=== PATIENT | male | born 1965 | race Caucasian/White ===

== ENCOUNTER 2022-04-29 11:28 | Emergency (ER) | payer MEDICARE, SELFPAY ==
[2022-04-29 12:25] VITALS: BP 159/80; PULSE 84; RESP 20; TEMP 37; O2SAT 96; BMI 26.7
[2022-04-29 12:44] LABS: UTC Influenza A Antigen Negative (Negative); UTC Influenza B Antigen Negative (Negative)
--- NOTE | 2022-04-29 12:50 | EXP.UTC ---
Discharge Plan Disposition Patient Disposition: Home, Self-Care Condition: Good Prescriptions Prescriptions: New benzonatate 100 mg capsule 100 mg PO TID PRN (Reason: cough) Qty: 30 0RF Referrals Follow up/Referrals: Provider,Referral, MD [Primary Care Provider] - See instructions Activity Restrictions/Add. Instructions Additional Instructions/Restrictions: *Monitor Temp, Over the counter Motrin or Tylenol as directed/as needed Tylenol every 4 hours and Motrin every 6 hours (as long as your family doctor has told you that you can take it) for fever or pain. and straight to ER if unable to lower temp less than 101.0 after medication given *Warm salt water gargles may help to soothe the throat *Throat Lozenges? *Warm fluids like tea with honey may help to soothe the throat? *Sleep elevated *Humidifier/Vaporizer Follow up IMMEDIATELY for new or worsening symptoms or no Noticeable improvement over the next 48-72 hours. 911 for difficulty breathing or swallowing You were tested for today for COVID19 your test result should be back in the next 24-48 hours, you may check your results on the [facility] Portal Clinical Impressions Clinical Impression: Viral syndrome Stand Alone Forms Stand Alone Forms: Work/School Release Instructions Patient Instructions: Preventing the Spread of Coronavirus Discharge Instructions, DI for Viral Syndrome Discharge ED Provider: Neeru Dudley [facility] [place] HPI General Stated complaint: Bodyaches chills Mode of Arrival: Ambulatory Source of Information: Patient Limitations: No Limitations Time Seen by Provider: 04/29/22 12:50 Description of Symptoms (Recalled from Triage Doc. by RN): PATIENT C/O BODY ACHES, CHILLS, AND COUGH THAT STARTED THIS MORNING HEENT Symptoms (Recalled from RN notes): No Resp Symptoms (Recalled from RN notes): Yes Skin Symptoms (Recalled from RN notes): No MS Symptoms (Recalled from RN notes): No Functional Status (Recalled from RN notes): WNL History of Present Illness Provider Complaint: Patient states that he woke up this morning having body aches, chills and nasal congestion and cough that started this morning States that he is planning on traveling this weekend and was worried with flu and covid and wanted to get tested Related Data Previous Rx's Medication Instructions Recorded benzonatate 100 mg capsule 100 mg PO TID PRN cough #30 caps 04/29/22 Allergies Allergy/AdvReac Type Severity Reaction Status Date / Time No Known Allergies Allergy Verified 04/29/22 12:40 Worker's Comp Is this a Worker's Comp case?: No [facility] Disclaimer: The information contained in this section may have been updated after the patient was seen, as this information can be updated by other users. Social History Smoking Status: Current some day smoker alcohol intake: never current occupational status: employed Travel in the last 8 weeks: None ROS Obtained: Yes All systems reviewed & no additional complaints except as documented and Yes Systems reviewed as appropriate & no additional complaints except as documented Constitutional Constitutional: Reports system reviewed and no additional complaints, except as documented, Reports as per HPI, Reports body ache and Reports chills ENT Ears, Nose, Mouth, and Throat: Reports system reviewed and no additional complaints, except as documented, Reports as per HPI and Reports nasal congestion Cardiovascular Cardiovascular: Reports system reviewed and no additional complaints, except as documented and Reports as per HPI Respiratory Respiratory: Reports system reviewed and no additional complaints, except as documented, Reports as per HPI and Reports cough Gastrointestinal Gastrointestingal: Reports system reviewed and no additional complaints, except as documented and as per HPI Physical Exam General General appearance: alert and in no apparent distress Expanded ENT Exam Nose exam: Ab
[2022-04-29 12:54] VITALS: BP 159/80; PULSE 84; RESP 20; TEMP 37; O2SAT 96
== END 2022-04-29 13:08 | disposition home or self-care (01) ==
PROVIDERS: Emergency Provider Nurse Practitioner
DX: B34.9 Viral infection, unspecified (principal); R52 Pain, unspecified; R50.9 Fever, unspecified; R05.9 Cough, unspecified
CPT/HCPCS: 87804; 87880; 99212; 99213; C9803; G0463; U0003; U0005

== ENCOUNTER → 2022-11-24 09:40 | Outpatient (CLI) | payer MEDICARE, SELFPAY ==
--- NOTE | 2022-11-24 09:49 | XR_ITS ---
FINAL REPORT TECHNIQUE: Chest PA & Lateral CLINICAL HISTORY: PERSISTENT COUGH, 1 month, productive cough with green/yellow phlegm, wheezing when lying down, 40 yr smoker FINDINGS: 2 views of the chest were performed. The heart size is normal. The mediastinum is within normal limits. There is no acute cardiopulmonary process. There are no pleural effusions. There is no pneumothorax. There is moderate anterior osteophyte formation in the mid and lower thoracic spine. There is posterior fusion hardware in the lower thoracic spine. IMPRESSION: No acute cardiopulmonary process. Reviewed, Interpreted and Dictated by Cachorro Gil MD Transcribed by Philip Roberson Authenticated and . [facility]
== END ==
DX: R05.3 Chronic cough (principal)
CPT/HCPCS: 71046

== ENCOUNTER 2023-01-26 08:40 | Emergency (ER) | payer MEDICARE, SELFPAY ==
[2023-01-26 09:20] VITALS: BP 131/81; PULSE 79; RESP 18; TEMP 37.2; O2SAT 93; BMI 26.6
[2023-01-26 09:48] LABS: UTC Influenza A Antigen Negative (Negative); UTC Influenza B Antigen Negative (Negative)
--- NOTE | 2023-01-26 09:49 | EXP.UTC ---
Discharge Plan Disposition Patient Disposition: Home, Self-Care Condition: Good Prescriptions Prescriptions: No Action baclofen 20 mg tablet 20 mg PO TIDP PRN (Reason: Pain) Patient Comments: TAKE 1 TABLET BY MOUTH 3 TIMES A DAY NEEDED FOR MUSCLE SPASM omeprazole 20 mg capsule,delayed release(DR/EC) 20 mg PO DAILY Patient Comments: TAKE 1 CAPSULE BY MOUTH EVERY OTHER DAY oxycodone-acetaminophen 7.5-325 mg tablet 1 tab PO Q6HP PRN (Reason: Pain) Patient Comments: TAKE 1 TABLET BY MOUTH EVERY 6 HOURS NEEDED FOR PAIN diclofenac sodium [Voltaren] 75 mg Tablet,Delayed Release (Dr/Ec) 75 mg PO BID Referrals Follow up/Referrals: Aleksandr Kruger MD [Primary Care Provider] - See instructions Activity Restrictions/Add. Instructions Additional Instructions/Restrictions: *Monitor Temp, Over the counter Motrin or Tylenol as directed/as needed Tylenol every 4 hours and Motrin every 6 hours (as long as your family doctor has told you that you can take it) for fever or pain. and straight to ER if unable to lower temp less than 101.0 after medication given *Warm salt water gargles may help to soothe the throat *Throat Lozenges? *Warm fluids like tea with honey may help to soothe the throat? *Sleep elevated *Humidifier/Vaporizer Follow up IMMEDIATELY for new or worsening symptoms or no Noticeable improvement over the next 48-72 hours. 911 for difficulty breathing or swallowing You were tested for today for COVID19 your test result should be back in the next 24 hours you may check your results on the [facility] My Health Portal if your COVID test is positive you must Quarantine for 5 days Clinical Impressions Clinical Impression: Viral syndrome Stand Alone Forms Stand Alone Forms: Work/School Release Instructions Patient Instructions: DI for COVID-19 (Suspected or Confirmed ), DI for Viral Syndrome Discharge ED Provider: Neeru Dudley [facility] [place] HPI General Stated complaint: EXPOSED TO COVID Mode of Arrival: Ambulatory Source of Information: Patient Limitations: No Limitations Time Seen by Provider: 01/26/23 09:49 Description of Symptoms (Recalled from Triage Doc. by RN): PATIENT C/O HEADACHE, CHILLS, AND COLD SWEATS SINCE YESTERDAY. RECENTLY EXPOSED TO COVID HEENT Symptoms (Recalled from RN notes): Yes Resp Symptoms (Recalled from RN notes): No Skin Symptoms (Recalled from RN notes): No MS Symptoms (Recalled from RN notes): No Functional Status (Recalled from RN notes): WNL History of Present Illness Provider Complaint: Patient states that he played poker with someone on Wednesday that tested positive for COVID States that last night he started with headache, chills, bodyaches and feeling bad states that he is not sure if he had a fever or not but woke up through out the night with chills, then he would sweat like a fever broke States that he feels ok this morning but wanted to come in and get tested for COVID and flu to see if he may have it State that he is an everyday smoker Related Data Home Medications Medication Instructions Recorded Confirmed baclofen 20 mg tablet 20 mg PO TIDP PRN Pain 01/26/23 01/26/23 diclofenac sodium 75 mg 75 mg PO BID 01/26/23 01/26/23 tablet,delayed release omeprazole 20 mg capsule,delayed 20 mg PO DAILY GERD 01/26/23 01/26/23 release oxycodone-acetaminophen 7.5 mg-325 1 tab PO Q6HP PRN Pain 01/26/23 01/26/23 mg tablet Allergies Allergy/AdvReac Type Severity Reaction Status Date / Time No Known Allergies Allergy Verified 04/29/22 12:40 Worker's Comp Is this a Worker's Comp case?: No [facility] Disclaimer: The information contained in this section may have been updated after the patient was seen, as this information can be updated by other users. Medical History (Updated 01/26/23 @ 09:59 by Neeru Dudley APRN) History of gastroesophageal reflux (GERD) Surgical History (Updated 01/26/23
[2023-01-26 10:00] VITALS: BP 0/0; PULSE 113; RESP 21; TEMP 37.1; O2SAT 100
== END 2023-01-26 10:03 | disposition home or self-care (01) ==
PROVIDERS: Emergency Provider Nurse Practitioner; PCP Family Medicine
DX: U07.1 COVID-19 (principal); R51.9 Headache, unspecified; R68.83 Chills (without fever); F17.210 Nicotine dependence, cigarettes, uncomplicated; K21.9 Gastro-esophageal reflux disease without esophagitis
CPT/HCPCS: 87635; 87804; 99212; 99213; G0463

== ENCOUNTER 2024-07-24 20:39 | Emergency (ER) | payer MEDICARE, SELFPAY ==
--- OUTSIDE RECORDS SUMMARY | 2024-07-24 22:13 | XMS_ITS | Encounter Summary ---
Author Name [facility] [facility] [place] Address [address] [place] [address] Care Team Providers Care Child Development Consultant Name Role Phone KWANMARIBELL MORRISSEY Primary Care Provider Unavailabl e Insurance Providers: All historical and current Section Date Range: From patient's date of to the date document was created. This section includes the names of all active insurance providers for the patient. Insurance Provider Type of Coverage Plan Name Start of Policy Coverage End of Policy Coverage Group Number Member ID Insurance Provider's Telephone Number Policy Conn's Name Patient's Relationship to Policy Conn BS [place] [employer] PREFERRED PROVIDER ORGANIZAT ION (PPO) RONEY Escoto [employer] AC Jun 29, 2011 [id number] WINTER DEVINE PATIENT [employer] ([id number]) PRESCRIPT ION TMAA Jun 29, 2011 TMAA [id number] [phone] WINTER DEVINE PATIENT Selected Encounter This section includes the information on record at [place] for the Encounter. Date/Time Encounter Type Encounter Description Reason Pro vider Source May 11, 2024 10:09 AM Outpatient Encounter ADMIN PAT ACTIVTIES (MASNONCT) [facility] Encounter Template Text not used by [place] Plan of Treatment: Future Appointments (+ 6 months) and Future Tests (+/- 45 days) The Plan of Treatment section includes future care activities for the [facility]. This section includes future appointments and future orders which are active, pending or scheduled. Future Appointments This section includes appointments that were scheduled to occur 6 months from the date of the Encounter, up to a maximum of 20 appointments. The data comes from all [place] treatment facilities. Appointment Date/Time Appointment Type Appointme nt Facility Name Jun 01, 2024 08:00 AM AMBULATORY - NONE [facility] Jun 09, 2024 08:15 AM AMBULATORY - NONE [facility] Lab Results: +/- 30 days of the encounter This section includes the Chemistry and Hematology Lab Results on record with [place] for the patient. Radiology Reports and Pathology Reports are provided separately, in subsequent sections. Lab Results This section contains the Chemistry/Hematology Results that were resulted 30 days before or 30 daysafter the date of the Encounter. Date/Time Source Result Type Result - Unit Interpretation Reference Range Specimen Type Comment Jun 01, 2024 08:55 AM [facility] WN LIPID PROFILE PLASMA Specimen Type: PLASMA Comment: Estimated Glomerular Filtration Rate (eGFR) calculated using the 2020 Chronic Kidney Disease-Epidemio logy (CKD-EPI) Collaboration creatinine equation; units of measure are mL/min/1.73 m2. Results are only valid for adults (>=18 years) whose serum creatinine is in a steady state. eGFR calculations are not valid for patients with acute kidney injury and for patients on dialysis. Creatinine-based estimates of kidney function may also be inaccurate in patients with reduced creatinine generation due to decreased muscle mass (e.g., malnutrition, severe hypoalbuminemia, sarcopenia, chronic neuromuscular disease, amputations, severe heart failure or liver disease) and in patients with increased creatinine generation due to increased muscle mass (e.g., muscle builders, anabolic steroids) or increased dietary intake. As drug clearance is proportional to total GFR and not GFR indexed to body surface area (BSA), in individuals with a BSA substantially different than 1.73 m2, drug dosing should be based on the reported eGFR value de-indexed from BSA by multiplying by the individual's BSA and dividing by 1.73. CKD is diagnosed based on abnormalities of kidney structure or function, present for >3 months, with implications for health and disease. CKD is classified and staged based on cause, eGFR and albuminuria (quantified as urine albumin to creatinine ratio). An eGFR >60 mL/min/1.73 m2 in the absence of increased urine albumin excretion or structural abnormalities does not represent CKD. ====== eGFR CKD Interpretation (mL/min/1.73 m2) stage >=90 G1 Normal 60-89 G2 Mild decrease 45-59 G3A Mild to moderate decrease 30-44 G3B Moderate to severe decrease 15-29 G4 Severe decrease <15 G5 Kidney failure Vitamin B12 test may not yield results when protein level of sample is too elevated. Ordering Provider: MARIBELL KWAN Report Released Date/Time: Jun 01, 2024 08:41 AM Reporting Lab: [address] [address] Performing Lab: [address] [address] CHOLESTEROL 134 mg/dL 0-199 TRIGLYCERIDE 95 mg/dL 0-149 HDL CHOLESTEROL 50 mg/dL 40-69 DIRECT LDL CHOL. 71 mg/dL 0-100 Jun 01, 2024 08:55 AM [facility] CBC/PLT BLOOD Specimen Type: BLOOD No comment entered. Ordering Provider: MARIBELL KWAN Report Released Date/Time: Jun 01, 2024 08:41 AM Reporting Lab: [address] [address] Performing Lab: [address] [address] WBC 7.3 10*3/uL 5.0-10.0 RBC 5.13 10*6/uL 4.6-6.2 HGB 16.0 g/dL 14.0-18.0 HCT 47.4 42.0-52.0 MCV 92.4 fL 80.0-94.0 MCH 31.2 pg H 27.0-31.0 MCHC 33.8 g/dL 32.0-36.0 PLT 267 10*3/uL 150-450 MPV 9.1 fL 9.0-13.1 RDW 13.4 11.0-16.0 NRBC 0.0 0.0-0.0 Jun 01, 2024 08:55 AM [facility] GLYCOHEMOGLOBIN BLOOD Specimen Type: BLOOD Comment: [place] guidelines for A1c interpretation: Glycemic control targets are based on Shared Decision Making between clinicians and patients. Criteria used to establish an A1c target recommendation can be found at https://www.nd.gov/qualityandpatientsafety/ and include the use of result accuracy and precision(CV) of the A1c tests clinicians utilize at their own sites of practice. Values obtained from A1C measurements can vary. For typical A1C assays, a reported value of 7.0 could actually be between 6.72 and 7.28 if measured by a reference method. A reported value of 9.0 could actually be between 8.73 and 9.27. Ref: https://ngsp.org/CAPdata.asp. The in-house 51fan[employer] D-100 analyzer has a historical CV <= 2%. Contact the laboratory for further performance characteristics of this assay. Ordering Provider: MARIBELL KWAN Report Released Date/Time: Jun 01, 2024 08:41 AM Reporting Lab: [address] [address] Performing Lab: [address] [address] GLYCOHEMOGLOBIN 5.3 4.4-5.6 Jun 01, 2024 08:55 AM [facility] PANEL 5 PLASMA Specimen Type: PLASM A Comment: Estimated Glomerular Filtration Rate (eGFR) calculated using the 2020 Chronic Kidney Disease-Epidemiology (CKD-EPI) Collaboration creatinine equation; units of measure are mL/min/1.73 m2. Results are only valid for adults (>=18 years) whose serum creatinine is in a steady state. eGFR calculations are not valid for patients with acute kidney injury and for patients on dialysis. Creatinine-based estimates of kidney function may also be inaccurate in patients with reduced creatinine generation due to decreased muscle mass (e.g., malnutrition, severe hypoalbuminemia, sarcopenia, chronic neuromuscular disease, amputations, severe heart failure or liver disease) and in patients with increased creatinine generation due to increased muscle mass (e.g., muscle builders, anabolic steroids) or increased dietary intake. As drug clearance is proportional to total GFR and not GFR indexed to body surface area (BSA), in individuals with a BSA substantially different than 1.73 m2, drug dosing should be based on the reported eGFR value de-indexed from BSA by multiplying by the individual's BSA and dividing by 1.73. CKD is diagnosed based on abnormalities of kidney structure or function, present for >3 months, with implications for health and disease. CKD is classified and staged based on cause, eGFR and albuminuria (quantified as urine albumin to creatinine ratio). An eGFR >60 mL/min/1.73 m2 in the absence of increased urine albumin excretion or structural abnormalities does not represent CKD. eGFR CKD Interpretation (mL/min/1.73 m2) stage >=90 G1 Normal 60-89 G2 Mild decrease 45-59 G3A Mild to moderate decrease 30-44 G3B Moderate to severe decrease 15-29 G4 Severe decrease <15 G5 Kidney failure Vitamin B12 test may not yield results when protein level of sample is too elevated. Ordering Provider: MARIBELL KWAN Report Released Date/Time: Jun 01, 2024 08:41 AM Reporting Lab: [address] [address] Performing Lab: [address] [address] CREATININE 0.96 mg/dL 0.72-1.25 UREA NITROGEN 17 mg/dL 9-25 GLUCOSE 93 mg/dL 74-100 SODIUM 140 mmol/L 136-145 POTASSIUM 4.8 mmol/L 3.5-5.1 CHLORIDE 109 mmol/L H 98-107 CO2 24 mmol/L 22-29 CALCIUM 9.4 mg/dL 8.4-10.2 TOTAL PROTEIN 6.7 g/dL 6.4-8.3 ALBUMIN 4.3 g/dL 3.5-5.2 TOTAL BILIRUBIN 0.9 mg/dL 0.2-1.2 AST 27 U/L 5-34 ALT 15 U/L 0-55 ANION GAP 7 meq/L 3-19 ALK PHOS 70 U/L 40-150 eGFR (CKD-EPI) >90 Jun 01, 2024 08:55 AM [facility] Specimen Type: SERUM No comment entered. Ordering Provider: MARIBELL KWAN Report Released Date/Time: Jun 01, 2024 08:41 AM Reporting Lab: [facility] [address] [facility] [address] Performing Lab: [place] [id number] [facility] [address] PSA 0.471 ng/mL 0-3.999 Jun 01, 2024 08:55 AM [facility] TSH PLASMA Specimen Type: PLASM A Comment: Estimated Glomerular Filtration Rate (eGFR) calculated using the 2020 Chronic Kidney Disease-Epidemiology (CKD-EPI) Collaboration creatinine equation; units of measure are mL/min/1.73 m2. Results are only valid for adults (>=18 years) whose serum creatinine is in a steady state. eGFR calculations are not valid for patients with acute kidney injury and for patients on dialysis. Creatinine-based estimates of kidney function may also be inaccurate in patients with reduced creatinine generation due to decreased muscle mass (e.g., malnutrition, severe hypoalbuminemia, sarcopenia, chronic neuromuscular disease, amputations, severe heart failure or liver disease) and in patients with increased creatinine generation due to increased muscle mass (e.g., muscle builders, anabolic steroids) or increased dietary intake. As drug clearance is proportional to total GFR and not GFR indexed to body surface area (BSA), in individuals with a BSA substantially different than 1.73 m2, drug dosing should be based on the reported eGFR value de-indexed from BSA by multiplying by the individual's BSA and dividing by 1.73. CKD is diagnosed based on abnormalities of kidney structure or function, present for >3 months, with implications for health and disease. CKD is classified and staged based on cause, eGFR and albuminuria (quantified as urine albumin to creatinine ratio). An eGFR >60 mL/min/1.73 m2 in the absence of increased urine albumin excretion or structural abnormalities does not represent CKD. eGFR CKD Interpretation (mL/min/1.73 m2) stage >=90 G1 Normal 60-89 G2 Mild decrease 45-59 G3A Mild to moderate decrease 30-44 G3B Moderate to severe decrease 15-29 G4 Severe decrease <15 G5 Kidney failure Ordering Provider: MARIBELL KWAN Report Released Date/Time: Jun 01, 2024 08:41 AM Reporting Lab: [address] [address] Performing Lab: [address] [address] TSH 1.2776 m[IU]/mL 0.3500-4.9400 Jun 01, 2024 08:55 AM [facility] B12 VITAMIN PLASMA Specimen Type: PLASM A Comment: Estimated Glomerular Filtration Rate (eGFR) calculated using the 2020 Chronic Kidney Disease-Epidemiology (CKD-EPI) Collaboration creatinine equation; units of measure are mL/min/1.73 m2. Results are only valid for adults (>=18 years) whose serum creatinine is in a steady state. eGFR calculations are not valid for patients with acute kidney injury and for patients on dialysis. Creatinine-based estimates of kidney function may also be inaccurate in patients with reduced creatinine generation due to decreased muscle mass (e.g., malnutrition, severe hypoalbuminemia, sarcopenia, chronic neuromuscular disease, amputations, severe heart failure or liver disease) and in patients with increased creatinine generation due to increased muscle mass (e.g., muscle builders, anabolic steroids) or increased dietary intake. As drug clearance is proportional to total GFR and not GFR indexed to body surface area (BSA), in individuals with a BSA substantially different than 1.73 m2, drug dosing should be based on the reported eGFR value de-indexed from BSA by multiplying by the individual's BSA and dividing by 1.73. CKD is diagnosed based on abnormalities of kidney structure or function, present for >3 months, with implications for health and disease. CKD is classified and staged based on cause, eGFR and albuminuria (quantified as urine albumin to creatinine ratio). An eGFR >60 mL/min/1.73 m2 in the absence of increased urine albumin excretion or structural abnormalities does not represent CKD. eGFR CKD Interpretation (mL/min/1.73 m2) stage >=90 G1 Normal 60-89 G2 Mild decrease 45-59 G3A Mild to moderate decrease 30-44 G3B Moderate to severe decrease 15-29 G4 Severe decrease <15 G5 Kidney failure Vitamin B12 test may not yield results when protein level of sample is too elevated. Ordering Provider: MARIBELL KWAN Report Released Date/Time: Jun 01, 2024 08:41 AM Reporting Lab: [address] [address] Performing Lab: [address] [address] B12 VITAMIN >2000 pg/mL H 213-816 Jun 01, 2024 08:55 AM [facility] 25-OH VITAMIN D SERUM Specime n Type: SERUM Comment: The National Institutes of Health (NIH) recommendations state: <12 ng/mL - Deficient 20 - 50 ng/mL - Optimal Levels - adequate for most people. >50 ng/mL - Increased risk of hypercalciuria/other health problems - clinical correlation is required. These reference ranges represent clinical decision values rather than population-based reference values. Ordering Provider: MARIBELL KWAN Report Released Date/Time: Jun 01, 2024 08:41 AM Reporting Lab: [address] [address] Performing Lab: [address] [address] 25-OH VITAMIN D 39.4 ng/mL 20.0-50.0 Radiology Reports: +/- 30 days of the encounter Radiology Reports For cases when an order for radiology services may have been completed prior to the date of the Encounter, the report list includes the Radiology Reports that were completed up to 30 days before dateof the Encounter. For cases when an order for radiology services may have been completed after the date of the Encounter, the report list also includes the Radiology Reports that were completed up to30 days after date of the Encounter. The data comes from all [place] treatment facilities. 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 There is minimal scarring left lung base and lingula; there is no change in the appearance here since February 03, 2023. There are no effusions or infiltrates. There is no suspicious adenopathy. The thyroid gland, trachea and esophagus are free of intrinsic masses. There are scattered benign axillary nodes noted incidentally. Great vessels are normal in caliber. There is minimal coronary calcification. Limited abdomen exam notable for postoperative changes to the stomach into the spine. Impression: No suspicious lung nodules, no infiltrates or effusions Primary Diagnostic Code: CRITICAL ABNORMALITY Primary Interpreting Staff: JOSE WALSH, Staff Radiologist Verified by printed circuit boards router for JOSE WALSH / NICOJOSE Ever [facility] Encounter Notes: All associated encounter notes This section contains the clinical notes associated to the Encounter. Date/Time Encounter Note(s) Provider Source May 11, 2024 10:09 AM ADMINISTRATIVE NOT E: LOCAL TITLE: CLERICAL/ADMIN NOTE STANDARD TITLE: ADMINISTRATIVE NOTE DATE OF NOTE: MAY 11, 2024@10:09 ENTRY DATE: MAY 11, 2024@10:09:57 AUTHOR: MANGO B[place]MINGHAM EXP COSIGNER: URGENCY: STATUS: COMPLETED [facility] [place] 1-2 05/11/2024@09:00 Cancelled By Patient [facility] [place] 1-2 06/01/2024@08:00 Future PER PT REQUEST , RESCHED DUE TO PROVIDER LEAVING. DDT. 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
--- OUTSIDE RECORDS SUMMARY | 2024-07-24 22:13 | XMS_ITS | Encounter Summary ---
Author Name [facility] Organization [facility] Address [address] [place] [address] Care Team Providers Care Bookmobile Librarian Name Role Phone KIM KWAN Primary Care Provider Unavailabl e Insurance Providers: [...] [place] BLU[employer] PREFERRED PROVIDER ORGANIZAT ION (PPO) FERNANDOOT A MOTOR MANUF AC Jun 29, 2011 [id number] [phone] WINTER DEVINE PATIENT [employer] ([id number]) PRESCRIPT ION TMAA Jun 29, 2011 TMAA [id number] [phone] WINTER DEVINE PATIENT Selected Encounter This section includes the information on record at DC for the Encounter. Date/Time Encounter Type Encounter Description Reason Provider Source Jun 01, 2024 08:00 AM OFFICE O/P EST MOD 30 MIN PRIMARY CARE/MEDICINE ICD-10-CM M47.896 Other spondylosis, lumbar region KIM KWAN [place] Encounter Template Text not used by DC Assessments - Encounter Diagnoses This section includes the primary and secondary diagnoses documented for the Encounter. Date/Time Primary/Secondary Diagnosis Diagnosis Name Provider Source Jun 01, 2024 05:22 PM PRIMARY Other spondylosis, lumbar region KIM KWAN [facility] Jun 01, 2024 05:22 PM SECONDARY Encounter for immunization MINAL BACA [facility] Plan of Treatment: Future Appointments (+ 6 months) and Future Tests (+/- 45 days) The Plan of Treatment section includes future care activities for the patient from all [place] treatmentfacilities. This section includes future appointments and future orders which are active, pending or scheduled. Future Appointments This section includes appointments that were scheduled to occur 6 months from the date of the Encounter, up to a maximum of 20 appointments. The data comes from all [place] treatment facilities. Appointment Date/Time Appointment Type Appointme nt Facility Name Jun 09, 2024 08:15 AM AMBULATORY - NONE [facility] Lab Results: +/- 30 days of the encounter This section includes the Chemistry and Hematology Lab Results on record with DC for the patient. Radiology Reports and Pathology Reports are provided separately, in subsequent sections. Lab Results This section contains the Chemistry/Hematology Results that were resulted 30 days before or 30 daysafter the date of the Encounter. Date/Time Source Result Type Result - Unit Interpretation Reference Range Specimen Type Comment Jun 01, 2024 08:55 AM [facility] WN LIPID PROFILE PLASMA Specimen Type: PLASMA [...] of sample is too elevated. Ordering Provider: KIM KWAN Report Released Date/Time: Jun 01, 2024 08:41 AM Reporting Lab: [address] [address] Performing Lab: [address] [address] CHOLESTEROL 134 mg/dL 0-199 TRIGLYCERIDE 95 mg/dL 0-149 HDL CHOLESTEROL 50 mg/dL 40-69 DIRECT LDL CHOL. 71 mg/dL 0-100 Jun 01, 2024 08:55 AM [facility] CBC/PLT BLOOD Specimen Type: BLOOD No comment entered. Ordering Provider: KIM KWAN Report Released Date/Time: Jun 01, 2024 08:41 AM Reporting Lab: [address] [address] Performing Lab: [address] [address] WBC 7.3 10*3/uL 5.0-10.0 RBC 5.13 10*6/uL 4.6-6.2 HGB 16.0 g/dL 14.0-18.0 HCT 47.4 42.0-52.0 MCV 92.4 fL 80.0-94.0 MCH 31.2 pg H 27.0-31.0 MCHC 33.8 g/dL 32.0-36.0 PLT 267 10*3/uL 150-450 MPV 9.1 fL 9.0-13.1 RDW 13.4 11.0-16.0 NRBC 0.0 0.0-0.0 Jun 01, 2024 08:55 AM [facility] GLYCOHEMOGLOBIN BLOOD Specimen Type: BLOOD Comment: [place] guidelines for A1c interpretation: Glycemic control targets [...] 8.73 and 9.27. Ref: https://ngsp.org/CAPdata.asp. The in-house [employer] D-100 analyzer has a historical CV <= 2%. Contact the laboratory for further performance characteristics of this assay. Ordering Provider: KIM KWAN Report Released Date/Time: Jun 01, 2024 08:41 AM Reporting Lab: [address] [address] Performing Lab: [address] [address] GLYCOHEMOGLOBIN 5.3 4.4-5.6 Jun 01, 2024 08:55 AM [facility] PANEL 5 PLASMA Specimen Type: PLASM A [...] of sample is too elevated. Ordering Provider: KIM KWAN Report Released Date/Time: Jun 01, 2024 08:41 AM Reporting Lab: [address] [address] Performing Lab: [address] [address] CREATININE 0.96 mg/dL 0.72-1.25 UREA NITROGEN 17 [...] (CKD-EPI) >90 Jun 01, 2024 08:55 AM [facility] PSA S NANDO Specimen Type: SERUM No comment entered. Ordering Provider: KIM KWAN Report Released Date/Time: Jun 01, 2024 08:41 AM Reporting Lab: [address] [address] Performing Lab: [address] [address] PSA 0.471 ng/mL 0-3.999 Jun 01, 2024 08:55 AM [facility] TSH PLASMA Specimen Type: PLASM A Comment: [...] decrease <15 G5 Kidney failure Ordering Provider: KIM KWAN Report Released Date/Time: Jun 01, 2024 08:41 AM Reporting Lab: [address] [address] Performing Lab: [address] [address] TSH 1.2776 m[IU]/mL 0.3500-4.9400 Jun 01, 2024 08:55 AM [facility] B12 VITAMIN PLASMA Specimen Type: PLASM A [...] of sample is too elevated. Ordering Provider: KIM KWAN Report Released Date/Time: Jun 01, 2024 08:41 AM Reporting Lab: [address] [address] Performing Lab: [address] [address] B12 VITAMIN >2000 pg/mL H 213-816 Jun 01, 2024 08:55 AM [facility] 25-OH VITAMIN D SERUM Specime n Type: SERUM Comment: The National Institutes of Health (NIH) recommendations state: <12 ng/mL - Deficient 20 - 50 ng/mL - Optimal Levels - adequate for most people. >50 ng/mL - Increased risk of hypercalciuria/other health problems - clinical correlation is required. These reference ranges represent clinical decision values rather than population-based reference values. Ordering Provider: KIM KWAN Report Released Date/Time: Jun 01, 2024 08:41 AM Reporting Lab: [address] [address] Performing Lab: [address] [address] 25-OH VITAMIN D 39.4 ng/mL 20.0-50.0 Vital Signs: All taken on the encounter date This section contains inpatient and outpatient Vital Signs collected on the date of the Encounter. Date/Time Temperature Pulse Blood Pressure Respiratory Rate SP02 Pain Height Weight Body Mass Index Source Jun 01, 2024 08:14 AM 98.1 79 137/79 18 97 8 68 164 25 [facility] Immunizations: All administered on the encounter date This section contains immunizations associated to the Encounter. 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 expressed understandi ng. 0 ASE's noted. notified. [facility] Social History: Smoking Status (Most current) and Tobacco Use (All prior to encounter date) This section includes the most current, and the historical, smoking and tobacco- related health factors from the [place] facility where the Encounter took place. Current Smoking Status This section includes the most current smoking, or tobacco-related health factor, from the [place] facility where the Encounter took place. Date/Time Current Smoking Status Comment Sandra ity Jun 01, 2024 08:00 AM VA-TOBACCO NEVER U SED CIGARETTES [facility] Tobacco Use History This section includes a history of the smoking, or tobacco-related health factors, that were collected on or before the date of the Encounter. The data comes from the [place] facility where the Encounter took place. 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 [facility] Jun 01, 2024 08:00 AM VA-TOBACCO USE BLAINE RY DAY CIGARS/PIPES [facility] Jun 01, 2024 08:00 AM VA-TOBACCO USE BLAINE RY DAY OTHER TYPE [facility] Jun 01, 2024 08:00 AM VA-TOBACCO USE MED NO [facility] May 25, 2023 11:30 AM VA-TOBACCO DOESNT USE WI 30 MIN WAKEUP [facility] May 25, 2023 11:30 AM VA-TOBACCO USE 30 YEARS OR MORE [facility] May 25, 2023 11:30 AM VA-TOBACCO USE ADVICE [facility] May 25, 2023 11:30 AM 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 [facility] 19, 2024 11:30 AM VA-TOBACCO USE MED NO [facility] May 25, 2023 11:30 AM VA-TOBACCO USER EVERY DAY [facility] Jun 15, 2022 08:30 AM VA-TOBACCO DOESNT USE WI 30 MIN WAKEUP [facility] Jun 15, 2022 08:30 AM VA-TOBACCO USE 30 YEARS OR MORE [facility] Jun 15, 2022 08:30 AM VA-TOBACCO USE ADVICE [facility] Jun 15, 2022 08:30 AM 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 [facility] Jun 15, 2022 08:30 AM VA-TOBACCO USE MED NO [facility] Jun 15, 2022 08:30 AM VA-TOBACCO USER EVERY DAY [facility] July 14, 2021 11:00 AM VA-TOBACCO DOESNT USE WI 30 MIN WAKEUP [facility] July 14, 2021 11:00 AM VA-TOBACCO USE 30 YEARS OR MORE [facility] July 14, 2021 11:00 AM VA-TOBACCO USE ADVICE [facility] July 14, 2021 11:00 AM 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 [facility] July 14, 2021 11:00 AM VA-TOBACCO USE MED NO [facility] July 14, 2021 11:00 AM VA-TOBACCO USER EVERY DAY [facility] Aug 13, 2020 10:00 AM VA-TOBACCO DOESNT USE WI 30 MIN WAKEUP [facility] Aug 13, 2020 10:00 AM VA-TOBACCO USE 30 YEARS OR MORE [facility] Aug 13, 2020 10:00 AM VA-TOBACCO USE ADVICE [facility] Aug 13, 2020 10:00 AM 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 [facility] Aug 13, 2020 10:00 AM VA-TOBACCO USE MED NO [facility] Aug 13, 2020 10:00 AM VA-TOBACCO USER EVERY DAY [facility] Sep 06, 2019 10:19 AM VA-TOBACCO DOESNT USE WI 30 MIN WAKEUP [facility] Sep 06, 2019 10:19 AM VA-TOBACCO USE 30 YEARS OR MORE [facility] Sep 06, 2019 10:19 AM VA-TOBACCO USE ADVICE [facility] Sep 06, 2019 10:19 AM 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 [facility] Sep 06, 2019 10:19 AM VA-TOBACCO USE MED NO [facility] Sep 06, 2019 10:19 AM VA-TOBACCO USER EVERY DAY [facility] Sep 12, 2018 09:24 AM VA-TOBACCO USE 30 YEARS OR MORE [facility] Sep 12, 2018 09:24 AM VA-TOBACCO USE ADVICE [facility] Sep 12, 2018 09:24 AM 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 [facility] Sep 12, 2018 09:24 AM VA-TOBACCO USE MED NO [facility] Sep 12, 2018 09:24 AM VA-TOBACCO USE WI 30 MIN OF WAKEUP [facility] Sep 12, 2018 09:24 AM VA-TOBACCO USER EVERY DAY [facility] Oct 21, 2017 12:23 PM V9 CURRENT TOBACCO USER [facility] Oct 21, 2017 12:23 PM V9 TOBACCO OFFERED [facility] Oct 21, 2017 12:23 PM V9 TOBACCO USE-DECLINED [facility] Oct 26, 2016 02:17 PM V9 CURRENT TOBACCO USER [facility] Oct 26, 2016 02:17 PM V9 TOBACCO OFFERED [facility] Oct 26, 2016 02:17 PM V9 TOBACCO USE-DECLINED [facility] Feb 06, 2015 08:05 AM V9 CURRENT TOBACCO USER [facility] Feb 06, 2015 08:05 AM V9 TOBACCO OFFERED [facility] Feb 06, 2015 08:05 AM V9 TOBACCO USE-DECLINED [facility] Feb 19, 2014 09:33 AM V9 QUIT TOBACCO >1 2 MO & <7 YRS AGO [facility] Radiology Reports: +/- 30 days of the [...] the Encounter. The data comes from all [place] treatment facilities. Date/Time Radiology Report Provider Source Jun 09, 2024 07:[address] CHEST W/O CONTR AST: DEVINEGELY TREVIÑO [employer] [id number] M Exm Date: JUN 09, 2024@07:56 Req Phys: KIM KWAN Pat Loc: SALLY PACT PRAKASH 1-2 (Req'g Lo Img Loc: CT SCAN Service: [place] [address] (Case [id number] COMPLETE)CT CHEST W/O CONTRAST (CT Detailed) CPT:32078 Reason for Study: SEE CLINICAL HISTORY Clinical History: REASON FOR SEND OUT: ATTENDING PHYSICIAN NAME: dyspnea HISTORY/REASON FOR EXAM: dyspnea in tobacco user Report Status: Verified Date Reported: JUN 12, 2024 Date Verified: JUN 12, 2024 Supervisor Film Processing E-Sig: Report: Scarring in the right lung [...] Staff: JOSE WALSH, Staff Radiologist Verified by anesthesiology faculty for JOSE WALSH /[facility]SE [facility] Encounter Notes: All associated encounter notes This section contains the clinical notes associated to the Encounter. Date/Time Encounter Note(s) Provider Source Jun 01, 2024 05:24 PM PRIMARY CARE LETTE RS: LOCAL TITLE: PC LETTER TEST RESULTS STANDARD TITLE: PRIMARY CARE LETTERS DATE OF NOTE: JUN 01, 2024@17:24 ENTRY DATE: JUN 01, 2024@17:24:12 AUTHOR: KIM KWAN COSIGNER: URGENCY: STATUS: COMPLETED [facility] [address] [place] [address] Mr. GELY DEVINE [address] [place], [place] [address] JUN 01, 2024 Dear Mr. GELY DEVINE Your vitamin B12 level is > 2000. You can stop [id number] vitamin B12 supplements. Other labs were normal or within acceptable ranges. Please call us if you have questions or problems. You can reach us at (toll free number) or [phone] (local number). If you are enrolled in [employer], and utilize those services, you may prefer to contact us by secure message. Thank you for your service to our Country. We are honored to be able to provide medical care to you. Recent labwork Collection DT Specimen Test Name Result Units Ref Range 06/01/2024 08:55 SERUM !! PSA 0.471 ng/mL 0 - 3.999 !! 25-OH VITAMIN D 39.4 ng/mL 20.0 - 50.0 06/01/2024 08:55 BLOOD !! GLYCOHEMOGLOBIN 5.3 % 4.4 - 5.6 06/01/2024 08:55 BLOOD WBC 7.3 K/cmm 5.0 - 10.0 RBC 5.13 M/cmm 4.6 - 6.2 HGB 16.0 g/dL 14.0 - 18.0 HCT 47.4 % 42.0 - 52.0 MCV 92.4 fL 80.0 - 94.0 MCH 31.2 H pg 27.0 - 31.0 MCHC 33.8 g/dL 32.0 - 36.0 RDW 13.4 % 11.0 - 16.0 PLT 267 K/cmm 150 - 450 MPV 9.1 fL 9.0 - 13.1 NRBC 0.0 % 0.0 - 0.0 06/01/2024 08:55 PLASMA!! CHOLESTEROL 134 mg/dL 0 - 199 !! TRIGLYCERIDE 95 mg/dL 0 - 149 !! HDL CHOLESTEROL 50 mg/dL 40 - 69 !! DIRECT LDL CHOL. 71 mg/dL 0 - 100 !! SODIUM 140 mmol/L 136 - 145 !! POTASSIUM 4.8 mmol/L 3.5 - 5.1 !! CHLORIDE 109 H mmol/L 98 - 107 !! CO2 24 mmol/L 22 - 29 !! ANION GAP 7.0 mEq/L 3 - 19 !! GLUCOSE 93 mg/dL 74 - 100 !! UREA NITROGEN 17 mg/dL 9 - 25 !! CREATININE 0.96 mg/dL 0.72 - 1.25 !! eGFR (CKD-EPI) >90 SEE EVAL !! CALCIUM 9.4 mg/dL 8.4 - 10.2 !! TOTAL PROTEIN 6.7 g/dL 6.4 - 8.3 !! ALBUMIN 4.3 g/dL 3.5 - 5.2 !! TOTAL BILIRUBIN 0.9 mg/dL 0.2 - 1.2 !! AST 27 U/L 5 - 34 !! ALT 15 U/L 0 - 55 !! ALK PHOS 70 U/L 40 - 150 !! B12 VITAMIN >2000 H pg/mL 213 - 816 !! TSH 1.2776 mIU/mL 0.3500 - 4.9400 Sincerely, /es/ Kim Kwan MD Primary Care Physician Patient Record Number [id number] KIM KWAN [facility] Jun 01, 2024 05:23 PM MEDICATION MGT NOT E: LOCAL TITLE: OUTPATIENT ESSENTIAL MEDICATION LIST FOR REVIEW ( STANDARD TITLE: MEDICATION MGT NOTE DATE OF NOTE: JUN 01, 2024@17:23 ENTRY DATE: JUN 01, 2024@17:23:09 AUTHOR: KIM KWAN EXP COSIGNER: URGENCY: STATUS: COMPLETED Review of medications include: Patient allergies (Remote and Local) and active and pending prescriptions dispensed from this DC (local) and dispensed from another DC or [facility] facility (remote and pending) as well as local inpatient orders (pending and active) and clinic medications (IMOs), locally documented non-VA medications and local prescriptions that have or been discontinued in the past 90 days. With the exception of Allergies, if a category is not listed below, it means there were no relevant medications for the patient. ALLERGIES: Patient has answered NKA No Remote Allergy/ADR Data available for this patient ACTIVE OUTPATIENT MEDICATIONS LOCAL/REMOTE BACLOFEN 10MG TAB Directions: TAKE TWO TABLETS BY MOUTH THREE TIMES A DAY NEEDED FOR MUSCLE SPASM Quantity: 540 for 90 days Issued: 06/01/24 Filled: 06/01/24 Expires: 06/02/25 Refills: 3 Status: ACTIVE/SUSP DICLOFENAC NA 75MG EC TAB Directions: TAKE ONE TABLET BY MOUTH TWICE A DAY FOR PAIN OR INFLAMMATION Quantity: 180 for 90 days Issued: 06/01/24 Filled: 08/03/24 Expires: 06/02/25 Refills: 3 Status: ACTIVE/SUSP OMEPRAZOLE 20MG EC CAP Directions: TAKE ONE CAPSULE BY MOUTH ONCE A DAY 30 MINUTES BEFORE A MEAL FOR HEARTBURN TAKE ON AN EMPTY STOMACH Quantity: 90 for 90 days Issued: 06/01/24 Filled: 06/01/24 Expires: 06/02/25 Refills: 3 Status: ACTIVE/SUSP No remote medications found. PENDING OUTPATIENT MEDICATIONS (LOCAL/REMOTE): No local medications found. No remote medications found. ACTIVE NONVA MEDICATIONS (LOCAL): ASCORBIC ACID 500MG TAB Directions: 500MG MOUTH DAILY Status: ACTIVE CALCIUM 500MG TAB Directions: 500MG MOUTH DAILY Status: ACTIVE CHONDROITIN/GLUCOSAMINE CAP/TAB Directions: 1 CAP/TAB MOUTH DAILY Status: ACTIVE CYANOCOBALAMIN 250MCG TAB Directions: 250MCG MOUTH DAILY Status: ACTIVE DOCUSATE NA 250MG CAP Directions: 250MG MOUTH DAILY Status: ACTIVE MELATONIN 3MG CAP/TAB Directions: 3MG MOUTH AT BEDTIME Status: ACTIVE MINERALS/MULTIVITAMINS CAP/TAB Directions: MOUTH DAILY Status: ACTIVE OXYCODONE 7.5MG/ACETAMINOPHEN 325MG TAB Directions: 1 TABLET MOUTH FOUR TIMES A DAY NEEDED Status: ACTIVE VALERIAN CAP/TAB Directions: 2 CAPS/TABS MOUTH EVERY DAY Status: ACTIVE OUTPATIENT MEDICATIONS (LOCAL)WITHIN 90 DAYS: BACLOFEN 10MG TAB Directions: TAKE TWO TABLETS BY MOUTH THREE TIMES A DAY NEEDED FOR MUSCLE SPASM Quantity: 540 for 90 days Issued: 06/01/24 Filled: 06/01/24 Expires: 06/02/25 Refills: 3 Status: ACTIVE/SUSP DICLOFENAC NA 75MG EC TAB Directions: TAKE ONE TABLET BY MOUTH TWICE A DAY FOR PAIN OR INFLAMMATION Quantity: 180 for 90 days Issued: 06/01/24 Filled: 08/03/24 Expires: 06/02/25 Refills: 3 Status: ACTIVE/SUSP OMEPRAZOLE 20MG EC CAP Directions: TAKE ONE CAPSULE BY MOUTH ONCE A DAY 30 MINUTES BEFORE A MEAL FOR HEARTBURN TAKE ON AN EMPTY STOMACH Quantity: 90 for 90 days Issued: 06/01/24 Filled: 06/01/24 Expires: 06/02/25 Refills: 3 Status: ACTIVE/SUSP DISCONTINUED OUTPATIENT MEDICATIONS (LOCAL) WITHIN 90 DAYS: BACLOFEN 10MG TAB Directions: TAKE TWO TABLETS BY MOUTH THREE TIMES A DAY NEEDED FOR MUSCLE SPASM Quantity: 540 for 90 days Issued: 06/01/24 Filled: 06/01/24 Expires: 06/02/25 Refills: 3 Status: ACTIVE/SUSP DICLOFENAC NA 75MG EC TAB Directions: TAKE ONE TABLET BY MOUTH TWICE A DAY FOR PAIN OR INFLAMMATION Quantity: 180 for 90 days Issued: 06/01/24 Filled: 08/03/24 Expires: 06/02/25 Refills: 3 Status: ACTIVE/SUSP OMEPRAZOLE 20MG EC CAP Directions: TAKE ONE CAPSULE BY MOUTH ONCE A DAY 30 MINUTES BEFORE A MEAL FOR HEARTBURN TAKE ON AN EMPTY STOMACH Quantity: 90 for 90 days Issued: 06/01/24 Filled: 06/01/24 Expires: 06/02/25 Refills: 3 Status: ACTIVE/SUSP BACLOFEN 10MG TAB Directions: TAKE TWO TABLETS BY MOUTH THREE TIMES A DAY NEEDED FOR MUSCLE SPASM Quantity: 540 for 90 days Issued: 05/25/23 Filled: 02/23/24 Expires: 05/25/24 Refills: 1 Status: DISCONTINUED DICLOFENAC NA 75MG EC TAB Directions: TAKE ONE TABLET BY MOUTH TWICE A DAY FOR PAIN OR INFLAMMATION Quantity: 180 for 90 days Issued: 05/25/23 Filled: 05/15/24 Expires: 05/25/24 Refills: 0 Status: DISCONTINUED OMEPRAZOLE 20MG EC CAP Directions: TAKE ONE CAPSULE BY MOUTH ONCE A DAY 30 MINUTES BEFORE A MEAL FOR HEARTBURN TAKE ON AN EMPTY STOMACH Quantity: 90 for 90 days Issued: 05/25/23 Filled: 02/23/24 Expires: 05/25/24 Refills: 1 Status: DISCONTINUED CLINIC MEDICATIONS (LOCAL): No local medications found. /michell/ Kim Kwan MD Primary Care Physician Signed: 06/01/2024 17:23 KIM KWAN [facility] Jun 01, 2024 08:33 AM PRIMARY CARE NOTE: LOCAL TITLE: PC PROGRESS NOTE STANDARD TITLE: PRIMARY CARE NOTE DATE OF NOTE: JUN 01, 2024@08:33 ENTRY DATE: JUN 01, 2024@08:33:17 AUTHOR: KIM KWAN EXP COSIGNER: URGENCY: STATUS: COMPLETED Age-58 Chief complaint: f/u for chronic medical conditions HPI: Pt presents for annual f/u with a long hx of LBP s/p lumbar fusion x 5 (T12-S1) per Dr. Caceres with most recent in 2017. He was told by his prev PC MD, Dr. Fontaine (retired), that he is unable to RTW (at [facility]). Pt now sees Dr. Kruger every 3 mos for monitoring to cont rx for percocet 7.5mg QID prn. Pt was prev seen by Dr. Munoz at [facility]. He is s/p TALAT and SCS implantation Feb 2017. Pt reports SCS explant due to staph infection either Nov/Dec 2021 and was treated w/abx including Bactrim x 6 mos (07/2021 - 04/2022). As a result, back pain increased. Acupuncture was prev not helpful. Because another spinal cord stimulator is not recommended, patient underwent a pain pump trial but was not successful. Patient complains of R lateral great toe abrasin which is due to bunion causing great toe to angle/rub against 2nd toe. Rec OTC bunion cushion/toe protector. 1. Lumbar spondylosis - pt is s/p lumbar fusion x5; he was released by following his most recent fusion; cont baclofen and diclofenac; Dr. Kruger to cont percocet 7.5mg QID prn; failed pain pump trial 2. GERD - cont prilosec 20mg daily prn 3. tob use - strongly encouraged d/c all use to incr healing and decr pain 4. HM - repeat colonoscopy 2025 Medical History: Active problems - Computerized Problem List is the source for the followin. Exposure to potentially hazardous substance ([facility] [id number]) 2. History of colonoscopy 02/25/16: mild diverticulosis; repeat in 10 years 3. Tobacco use 4. Gastroesophageal reflux disease 5. Insomnia 6. Low back pain Has had three different fusions-last L3-L4 01/18/2014 7. Simple obesity Had gastric banding in 07/2012 8. Knee pain arthroscopic surgery 1999 9. Sleep apnea Had surgeries for deviated septum, jaw moved forward 10. Torn muscle right biceps Surgical History: lumbar fusion x5 T12-S1 (2005,2009,2013,2015,2017) tonsillectomy R knee arthroscopy 1999 sleep apnea surgery x 2 (2004,2006) gastric sleeve 2012 SCS implantation Feb 2017 R index finger ORIF SCS explant Nov/Dec 2021 Active Outpatient Medications (including Supplies): Active Non-VA Medications Status 1) Non-VA ASCORBIC ACID 500MG TAB 500MG MOUTH DAILY ACTIVE 2) Non-VA CALCIUM 500MG TAB 500MG MOUTH DAILY ACTIVE 3) Non-VA CHONDROITIN/GLUCOSAMINE CAP/TAB 1 CAP/TAB MOUTH DAILY ACTIVE 4) Non-VA CYANOCOBALAMIN 250MCG TAB 250MCG MOUTH DAILY ACTIVE 5) Non-VA DOCUSATE NA 250MG CAP 250MG MOUTH DAILY ACTIVE 6) Non-VA MELATONIN 3MG CAP/TAB 3MG MOUTH AT BEDTIME ACTIVE 7) Non-VA MINERALS/MULTIVITAMINS CAP/TAB MOUTH DAILY ACTIVE 8) Non-VA OXYCODONE 7.5MG/ACETAMINOPHEN 325MG TAB 1 TABLET ACTIVE MOUTH FOUR TIMES A DAY NEEDED 9) Non-VA VALERIAN CAP/TAB 2 CAPS/TABS MOUTH EVERY DAY ACTIVE allergies:Patient has answered NKA Hx: [employer] Social Hx: lives in [place]; ; 1 son, 1 daughter and 1 adopted son; disabled Smokin-[employer] cigars daily since age 16; prev cigarette use 1 ppd x 15 years (quit 1996) ETOH: averages 1-2 drinks monthly Illicit: denies Family Hx: Father: age 67; Parkinson's disease, HTN Mother: HTN, pacemaker PE: 164 lb [74.39 kg] (06/01/2024 08:14) 68 in [172.7 cm] (06/01/2024 08:14) Measurement DT BP 06/01/2024 08:14 137/79 79 (06/01/2024 08:14) BODY MASS INDEX - 25.0 PULSE OX: Measurement DT POx (L/MIN)(%) 06/01/2024 08:14 97 Gen: WN WD WM ENT: translucent TMs Pulm: B CTA; nl respiratory rate CV: RRR no M/R/G; no carotid bruits; no edema GI: NT/ND +BS; no HSM MS: nl gait; no cyanosis or clubbing of nails; muscle strength 5/5 B UE & L LE, R LE 4+/5; R foot: hallux valgus Neuro: sensation intact Psych: appropriate mood and affect; A&Ox3 ECHO - NONE FOUND Lipid Prof Jorge Luis. date CHOL TRIG HDL LIPID PHLDL CHOLSERUM AP 05/25/23 12:34 140 56 53 PANEL 1 - NONE FOUND The OBJECT CBC CUMULATIVE (07/06Y) was NOT found...Contact IRM. No data available for: TSH FREE T4 Z PROSTATIC ANTIGEN 05/25/23 12:34 0.441 06/15/22 09:04 0.390 Z GLYCOHEMOGLOBIN (HPLC) - NONE FOUND A/P: 1. Lumbar spondylosis - pt is s/p lumbar fusion x5; he was released by [employer] following his most recent fusion; cont baclofen and diclofenac; Dr. Kruger to cont percocet 7.5mg QID prn; failed pain pump trial Follow up: 11 mos I spent 30 min today reviewing last visit notes, evaluating and managing the patients conditions, and documenting clinic information in health record. __ Preparing to see patient (tests, reviewing last progress note) _x_ Perform medically necessary Exam _x_ Order tests, procedures, medications _x_ Documenting clinical info in health record __ Independently interpreting results and communicating results to patient/caregiver ___ Refer and/or communicate with other providers regarding patient ___ Obtain/review separately obtained history ___ Placed consult MEDICATION RECONCILIATION: The Outpt Essential Med List for review (EMLR) was reviewed w/the pt and the pt declined an updated reconciled med list w/discrepancies corrected. The patient/caregiver verbalized understanding of the topics covered/discussed in today's visit. Patient/caregiver were given the opportunity to ask questions to MD. Initial Lung Cancer Screen (Provider): No clinical exclusions, patient is a current candidate for the lung cancer screening program. Patient agrees to lung cancer screening. Lung cancer screening information provided and low dose CT will be ordered. /es/ Kim Kwan MD Primary Care Physician Signed: 06/01/2024 17:22 [facility] Jun 01, 2024 08:14 AM PRIMARY CARE [facility] NOTE: LOCAL TITLE: [facility] Tech/first beater Note STANDARD TITLE: PRIMARY CARE NURSING NOTE DATE OF NOTE: JUN 01, 2024@08:14 ENTRY DATE: JUN 01, 2024@08:14:16 AUTHOR: MINAL BACA COSIGNER: URGENCY: STATUS: COMPLETED The patient was given a list of his current medications, instructed to review and discuss any changes or problems with their provider. Patient advised to carry a list of current medications and any allergies with them in the event of emergency situations. Yes - Howells/Caregiver verbalized understanding of topics discussed and education provided COVID-19 Immunization: Refused Moderna Monovalent COVID-19 vaccine Immunization: COVID-19 (MODERNA), MRNA, LNP-S, PF, 50 MCG/0.5 ML (AGES 12+ YEARS) Refusal Reason: PATIENT DECISION Patient refuses all immunization(s) in the COVID-19 group Date Documented: 06/01/24 08:40 Homelessness/Food Insecurity Screen: In the past 2 months, have you been living in stable housing that you own, rent, or stay in as part of a household? Yes - Living in stable housing. Are you worried or concerned that in the next 2 months you may NOT have stable housing that you own, rent, or stay in as part of a household? No - Not worried about housing near future The reports the following: Within the past 12 months, you worried whether your food would run out before you got money to buy more. Never true Within the past 12 months, the food you bought just didn't last and you didn't have money to get more. Never true Learning Readiness Assessment: Preferred language for discussing health care Maori NEW ASSESSMENT LEARNING BARRIERS No barriers to learning Visual Barrier Comment: readers READING LIMITATIONS No reading limitations PREFERRED METHODS FOR LEARNING Demonstration (Audio/Visual) INTERESTED IN LEARNING (MOTIVATED) PERSON BEING EDUCATED TODAY Education was provided on the following topics RESPONSE Tobacco Use Screening: The patient has never smoked cigarettes. The patient uses other type(s) of tobacco every day. Other Tobacco Type(s) used: Cigars/pipes/small cigars Patient was advised to stop smoking and/or using other tobacco products. Advised patient that a combination of behavioral counseling and FDA-approved cessation medications is the most effective way to ensure their success in stopping to smoke and/or using other tobacco products. The patient was not interested in additional information about behavioral counseling and other support strategies discussed. Informed patient that medications can help with cravings and withdrawal symptoms, and they greatly increase the chances of successfully stopping your tobacco use. The patient was not interested in a prescription for tobacco cessation medications. Tdap Immunization: See orders Administered: TDAP Date Administered: Jun 01, 2024 08:00 Maintenance Shop Welder: SANOFI PASTEUR Lot: [id number] Exp Date: August 05, 2025 [facility] [place]: [phone] Admin Route/Site: INTRAMUSCULAR/LEFT DELTOID Dosage: 0.5mL Vaccine Information Statement(s): TDAP (TETANUS, DIPHTHERIA, PERTUSSIS) VACCINE VIS Apr 07, 2024 (IRISH) Order By: Kim Kwan Administered By: Minal Baca Comment: Discussed risks vs benefits with and advised him to stay in lobby for 30 min for obs. Howells expressed understanding. 0 ASE's noted. MD notified. The TETANUS/DIPHTHERIA/PERTUSSIS (TDAP) Vaccine Information Statement (VIS) was reviewed with the patient/caregiver which lists the benefits and risks of the vaccine and the risks of not receiving the Tdap vaccine. The patient/caregiver denied any prior severe reaction to this vaccine or its components or a severe allergic reaction, such as anaphylaxis, to any vaccine or any injectable therapy. The patient/caregiver gave verbal consent to receive the vaccine. Alcohol Use Screen (AUDIT-C): Alcohol Screen: SCREEN FOR ALCOHOL (AUDIT-C) An alcohol screening test (AUDIT-C) was negative (score=1). 1. How often did you have a drink containing alcohol in the past year? Consider a drink to be a 12 ounce can or bottle of regular beer, 8 ounces of malt liquor, a 5 ounce glass of table wine, or a 1.5 ounce shot of liquor (like scotch, gin, or vodka). Monthly or less 2. How many drinks containing alcohol did you have on a typical day when you were drinking in the past year? One or two drinks 3. How often did you have six or more drinks on one occasion in the past year? Never Depression Screening: Perform PHQ-2 A PHQ-2 screen was performed. The score was 0 which is a negative screen for depression. Over the past two weeks, how often have you been bothered by the following problems? 1. Little interest or pleasure in doing things Not at all 2. Feeling down, depressed, or hopeless Not at all Suicide Screen: C-SSRS Screening [place] Suicide Severity Rating Scale (C-SSRS) screener 1. Over the past month, have you wished you were or wished you could go to sleep and not wake up? No 2. Over the past month, have you had any actual thoughts of killing yourself? No 3. Over the past month, have you been thinking about how you might do this? Response not required due to responses to other questions. 4. Over the past month, have you had these thoughts and had some intention of acting on them? Response not required due to responses to other questions. 5. Over the past month, have you started to work out or worked out the details of how to kill yourself? Response not required due to responses to other questions. 6. If yes, at any time in the past month did you intend to carry out this plan? Response not required due to responses to other questions. 7. In your lifetime, have you ever done anything, started to do anything, or prepared to do anything to end your life (for example, collected pills, obtained a gun, gave away valuables, went to the roof but didn't jump)? No 8. If YES, was this within the past 3 months? Response not required due to responses to other questions. /michell/ MINAL BACA Licensed Practical Nurse Signed: 06/01/2024 08:43 MINAL BACA [facility]
--- OUTSIDE RECORDS SUMMARY | 2024-07-24 22:13 | XMS_ITS | Continuity of Care Document ---
Author Name [facility] Organization 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 Unavailable Unavailable Problems Combined list of problems from Department of Defense and Veterans Affairs facilities. It does not include entries that were removed or entered in error. Problem Status Onset Date Problem Type Date of Resolution Comments Source Torn muscle Active 03/08/19 06 Condition Feb 19, 2014 Entered By: JOSHUA FERNANDEZ Comment: right biceps [facility] Low back pain Active 03/08/18 91 Condition Feb 19, 2014 Entered By: JOSHUA FERNANDEZ Comment: Has had three different fusions-last L3-L4 01/18/2014 [facility] Exposure to potentially hazardous substance ([facility] [[email or web address]] [id number]) Active Condition [facility] Gastroesophageal reflux disease Active Condition [facility] History of colonoscopy Active Condition Sep 16, 2018 Entered By: MARIBELL KWAN Comment: 02/25/16: mild diverticulosis; repeat in 10 years [facility] Insomnia Active Condition [facility] Knee pain Active Condition Feb 19 14 Entered By: JOSHUA FERNANDEZ Comment: arthroscopic surgery 1999 [facility] Simple obesity Active Condition Feb 052013 Entered By: JOSHUA FERNANDEZ Comment: Had gastric banding in 07/2012 [facility] Sleep apnea Active Condition Feb 19, 2014 Entered By: JOSHUA FERNANDEZ Comment: Had surgeries for deviated septum, jaw moved forward [facility] Tobacco use Active Condition [facility] Diagnosis: ICD-10-CM M47.896 Other spondylosis, lumbar region Active Diagnosis [facility] Diagnosis: ICD-10-CM M25.562 Pain in left knee Active Diagnosis [facility] Diagnosis: ICD-10-CM Z71.9 Counseling, unspecified Active Diagnosis [facility] Diagnosis: ICD-10-CM H25.13 Age-related nuclear cataract, bilateral Active Diagnosis [facility] Diagnosis: ICD-10-CM H93.13 Tinnitus, bilateral Active Diagnosis [facility] Diagnosis: ICD-10-CM M96.1 Postlaminectomy syndrome, not elsewhere classified Active Diagnosis [facility] Diagnosis: ICD-10-CM M54.9 Dorsalgia, unspecified Active Diagnosis [facility] Diagnosis: ICD-10-CM Z71.89 Other specified counseling Active Diagnosis [facility] Diagnosis: ICD-10-CM R20.2 Paresthesia of skin Active Diagnosis [facility] Medications Combined list of outpatient medications from Department of Defense and [facility] Affairs facilities.Medications provided include 1) outpatient medications from the last 15 months, and 2) patient-reported medications. Medication Details Route Status Patient Instructions Prescription Expires Prescription Number Last Dispense Date Ordering Provider Order Date Order Qty Source ASCORBIC ACID 500MG TAB TAKE ONE TABLET BY MOUTH DAILY ORAL ACTIVE MARY KWAN 2019 [place] [facility] BACLOFEN 10MG TAB TAKE TWO TABLETS BY MOUTH THREE TIMES A DAY NEEDED FOR MUSCLE SPASM ORAL ACTIVE 06/02/2025 [id number] MARY KWAN K 2024 540 [facility] [facility] BACLOFEN 10MG TAB TAKE TWO TABLETS BY MOUTH THREE TIMES A DAY NEEDED FOR MUSCLE SPASM ORAL DISCONT INUED 05/25/2024 [id number] 4 KWAN,NA SHELIA K 2023 540 [place] [facility] BACLOFEN 10MG TAB TAKE TWO TABLETS BY MOUTH THREE TIMES A DAY NEEDED FOR MUSCLE SPASM ORAL DISCONT INUED 06/16/2023 [id number] 4 ANIYANA SHELIA K 2022 540 [facility] CALCIUM 500MG TAB TAKE ONE TABLET BY MOUTH DAILY ORAL ACTIVE MARY KWAN 2020 [facility] CHONDROITIN /GLUCOSAMIN E CAP/TAB TAKE 1 CAP/TAB BY MOUTH DAILY ORAL ACTIVE ST ERNESTO FERNANDEZ 2013 [facility] [facility] CYANOCOBALA MIN 250MCG TAB TAKE ONE TABLET BY MOUTH DAILY ORAL ACTIVE KWAN,NA NCY 2019 [place] [facility] DICLOFENAC NA 75MG TAB,EC TAKE ONE TABLET BY MOUTH TWICE A DAY FOR PAIN OR INFLAMMA TION ORAL ACTIVE 06/02/2025 [id number] 5 KWAN,NA NCY K 2024 180 [place] [facility] DICLOFENAC NA 75MG TAB,EC TAKE ONE TABLET BY MOUTH TWICE A DAY FOR PAIN OR INFLAMMA TION ORAL DISCONT INUED 05/25/2024 [id number] 5 KWAN,NA NCY K 2023 180 [place] [facility] [place] DICLOFENAC NA 75MG TAB,EC TAKE ONE TABLET BY MOUTH TWICE A DAY FOR PAIN OR INFLAMMA TION ORAL DISCONT INUED 06/16/2023 [id number] 4 KWAN,NA NCY K 2022 180 [facility] DOCUSATE NA 250MG CAP TAKE 1 CAPSULE BY MOUTH DAILY ORAL ACTIVE KWAN,NA ABIGAILY 2020 [place] [facility]EL[facility] 3MG CAP/TAB TAKE 1 CAP(S)/T AB BY MOUTH AT BEDTIME ORAL ACTIVE KWAN,NA NCY 2019 [facility] MINERALS/MU LTIVITAMINS CAP/TAB TAKE BY MOUTH DAILY ORAL ACTIVE ST ERNESTO FERNANDEZ 2013 [facility] OMEPRAZOLE 20MG CAP,EC TAKE ONE CAPSULE BY MOUTH ONCE A DAY 30 MINUTES BEFORE A MEAL FOR HEARTBUR N TAKE ON AN EMPTY STOMACH ORAL ACTIVE 06/02/2025 [id number] 5 KWAN,NA NCY K 2024 90 [facility] OMEPRAZOLE 20MG CAP,EC TAKE ONE CAPSULE BY MOUTH ONCE A DAY 30 MINUTES BEFORE A MEAL FOR HEARTBUR N TAKE ON AN EMPTY STOMACH ORAL DISCONT INUED 05/25/2024 [id number] 4 ANIYANA SHELIA K 2023 90 [facility] OMEPRAZOLE 20MG CAP,EC TAKE ONE CAPSULE BY MOUTH EVERY DAY 30 MINUTES BEFORE A MEAL FOR STOMACH. TAKE ON AN EMPTY STOMACH ORAL DISCONT INUED 06/16/2023 [id number] 4 KWAN,NA NCY K 2022 90 [facility] OXYCODONE HCL 7.5MG/ACETA MINOPHEN 325MG TAB TAKE ONE TABLET BY MOUTH FOUR TIMES A DAY NEEDED ORAL ACTIVE KWAN,NA NCY 2020 [facility] VALERIAN CAP/TAB TAKE 2 CAPS/TAB S BY MOUTH QD ORAL ACTIVE KWAN,NA NCY 2019 [facility] Immunizations Combined list of available immunizations from the Department of Defense and Veterans Affairs facilities. 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 Linn expressed understan ding. 0 ASE's noted. notified. [facility] INFLUENZA, SPLIT VIRUS, TRIVALENT, PF 6 2023 140 complet ed HISTORICA L INFORMATI ON - FROM OTHER REGISTRY, [facility] INFLUENZA, INJECTABLE, QUADRIVALENT, PRESERVATIVE FREE 5 2022 150 complet ed HISTORICA L INFORMATI ON - FROM OTHER REGISTRY, [facility] PNEUMOCOCCAL CONJUGATE PCV20, POLYSACCHARID E [id number] CONJUGATE, ADJUVANT, PF 1 2022 216 complet ed HISTORICA L INFORMATI ON - FROM OTHER REGISTRY, [facility] INFLUENZA, UNSPECIFIED FORMULATION 2021 88 complet ed HISTORICA L INFORMATI ON - FROM PATIENT'S RECALL, [facility] PNEUMOCOCCAL CONJUGATE PCV20, POLYSACCHARID E [id number] CONJUGATE, ADJUVANT, PF 2021 216 complet ed [place] [facility] INFLUENZA, UNSPECIFIED FORMULATION 2020 88 complet ed [facility] INFLUENZA, INJECTABLE, QUADRIVALENT, PRESERVATIVE FREE 4 2019 150 complet ed HISTORICA L INFORMATI ON - FROM OTHER REGISTRY, [facility] INFLUENZA, UNSPECIFIED FORMULATION 2019 88 complet ed [facility] INFLUENZA, SEASONAL, INJECTABLE 2018 141 complet ed [facility] HEP A, ADULT 2 2018 52 complet ed HISTORICA L INFORMATI ON - FROM OTHER REGISTRY, [facility] INFLUENZA, INJECTABLE, QUADRIVALENT, PRESERVATIVE FREE 3 2018 150 complet ed HISTORICA L INFORMATI ON - FROM OTHER REGISTRY, [facility] [facility] HEP A, ADULT 1 2017 52 complet ed HISTORICA L INFORMATI ON - FROM OTHER REGISTRY, [facility] INFLUENZA, SEASONAL, INJECTABLE 2017 141 complet ed [facility] ZOSTER RECOMBINANT 1 2017 187 complet ed HISTORICA L INFORMATI ON - FROM OTHER REGISTRY, [facility] ZOSTER RECOMBINANT 1 2017 187 complet ed awaiting call for 2nd dose [facility] ZOSTER RECOMBINANT 2 2017 187 complet ed per pt hx [facility] ZOSTER RECOMBINANT 1 2017 187 complet ed per pt hx [facility] INFLUENZA, INJECTABLE, QUADRIVALENT, PRESERVATIVE FREE 2 2016 150 complet ed HISTORICA L INFORMATI ON - FROM OTHER REGISTRY, [facility] INFLUENZA, SEASONAL, INJECTABLE 2016 141 complet ed [facility] INFLUENZA, SEASONAL, INJECTABLE, PRESERVATIVE FREE 1 2015 140 complet ed HISTORICA L INFORMATI ON - FROM OTHER REGISTRY, [facility] INFLUENZA A & B (HISTORICAL) 2015 88 complet ed [facility] [facility] DTP 2013 01 complet ed [place] [facility] MING TDAP (HISTORICAL) 2013 115 complet ed [facility] Results Combined list of recent chemistry, hematology and other laboratory results from Department of Defense and Veterans Affairs, ranging from 15 months to all on record, depending upon the facility. Order Name Results Value Reference Range Date Interpretation Specimen Comments Source LIPID PROFILE CHOLESTEROL [MASS/VOLUM E] IN SERUM OR PLASMA 134 mg/dL 0 - 199 06/01 Specimen Type: PLASMA Comment: Estimated Glomerular Filtration Rate (eGFR) calculated using the 2020 Chronic Kidney Disease-Epi demiology (CKD-EPI) Collaborati on creatinine equation; units of measure are mL/min/1.73 m2. Results are only valid for adults (>=18 years) whose serum creatinine is in a steady state. eGFR calculation s are not valid for patients with acute kidney injury and for patients on dialysis. Creatinine- based estimates of kidney function may also be inaccurate in patients with reduced creatinine generation due to decreased muscle mass (e.g., malnutritio n, severe hypoalbumin emia, sarcopenia, chronic neuromuscul ar disease, amputations , severe heart failure or liver disease) and in patients with increased creatinine generation due to increased muscle mass (e.g., muscle builders, anabolic steroids) or increased dietary intake. As drug clearance is proportiona l to total GFR and not GFR indexed to body surface area (BSA), in individuals with a BSA substantial ly different than 1.73 m2, drug dosing should be based on the reported eGFR value de-indexed from BSA by multiplying by the individual' s BSA and dividing by 1.73. CKD is diagnosed based on abnormaliti es of kidney structure or function, present for >3 months, with implication s for health and disease. CKD is classified and staged based on cause, eGFR and albuminuria (quantified as urine albumin to creatinine ratio). An eGFR >60 mL/min/1.73 m2 in the absence of increased urine albumin excretion or structural abnormaliti es does not represent CKD. eGFR CKD Interpretat ion (mL/min/1.7 3 m2) stage >=90 G1 Normal 60-89 G2 Mild decrease 45-59 G3A Mild to moderate decrease 30-44 G3B Moderate to severe decrease 15-29 G4 Severe decrease <15 G5 Kidney failure Vitamin B12 test may not yield results when protein level of sample is too elevated. Ordering Provider: RICCO KWAN Report Released Date/Time: Jun 01, 2024 08:41 AM Reporting Lab: [facility] [address] [address] Performing Lab: [facility] [address] [address] [facility] LIPID PROFILE TRIGLYCERID E [MASS/VOLUM E] IN SERUM OR PLASMA 95 mg/dL 0 - 149 06/01 Specimen Type: PLASMA Comment: Estimated Glomerular Filtration Rate (eGFR) calculated using the 2020 Chronic Kidney Disease-Epi demiology (CKD-EPI) Collaborati on creatinine equation; units of measure are mL/min/1.73 m2. Results are only valid for adults (>=18 years) whose serum creatinine is in a steady state. eGFR calculation s are not valid for patients with acute kidney injury and for patients on dialysis. Creatinine- based estimates of kidney function may also be inaccurate in patients with reduced creatinine generation due to decreased muscle mass (e.g., malnutritio n, severe hypoalbumin emia, sarcopenia, chronic neuromuscul ar disease, amputations , severe heart failure or liver disease) and in patients with increased creatinine generation due to increased muscle mass (e.g., muscle builders, anabolic steroids) or increased dietary intake. As drug clearance is proportiona l to total GFR and not GFR indexed to body surface area (BSA), in individuals with a BSA substantial ly different than 1.73 m2, drug dosing should be based on the reported eGFR value de-indexed from BSA by multiplying by the individual' s BSA and dividing by 1.73. CKD is diagnosed based on abnormaliti es of kidney structure or function, present for >3 months, with implication s for health and disease. CKD is classified and staged based on cause, eGFR and albuminuria (quantified as urine albumin to creatinine ratio). An eGFR >60 mL/min/1.73 m2 in the absence of increased urine albumin excretion or structural abnormaliti es does not represent CKD. eGFR CKD Interpretat ion (mL/min/1.7 3 m2) stage >=90 G1 Normal 60-89 G2 Mild decrease 45-59 G3A Mild to moderate decrease 30-44 G3B Moderate to severe decrease 15-29 G4 Severe decrease <15 G5 Kidney failure Vitamin B12 test may not yield results when protein level of sample is too elevated. Ordering Provider: RICCO KWAN Report Released Date/Time: Jun 01, 2024 08:41 AM Reporting Lab: [facility] [address] [address] Performing Lab: [facility] [address] [address] [facility] LIPID PROFILE CHOLESTEROL IN HDL [MASS/VOLUM E] IN SERUM OR PLASMA 50 mg/dL 40 - 69 06/01 Specimen Type: PLASMA Comment: Estimated Glomerular Filtration Rate (eGFR) calculated using the 2020 Chronic Kidney Disease-Epi demiology (CKD-EPI) Collaborati on creatinine equation; units of measure are mL/min/1.73 m2. Results are only valid for adults (>=18 years) whose serum creatinine is in a steady state. eGFR calculation s are not valid for patients with acute kidney injury and for patients on dialysis. Creatinine- based estimates of kidney function may also be inaccurate in patients with reduced creatinine generation due to decreased muscle mass (e.g., malnutritio n, severe hypoalbumin emia, sarcopenia, chronic neuromuscul ar disease, amputations , severe heart failure or liver disease) and in patients with increased creatinine generation due to increased muscle mass (e.g., muscle builders, anabolic steroids) or increased dietary intake. As drug clearance is proportiona l to total GFR and not GFR indexed to body surface area (BSA), in individuals with a BSA substantial ly different than 1.73 m2, drug dosing should be based on the reported eGFR value de-indexed from BSA by multiplying by the individual' s BSA and dividing by 1.73. CKD is diagnosed based on abnormaliti es of kidney structure or function, present for >3 months, with implication s for health and disease. CKD is classified and staged based on cause, eGFR and albuminuria (quantified as urine albumin to creatinine ratio). An eGFR >60 mL/min/1.73 m2 in the absence of increased urine albumin excretion or structural abnormaliti es does not represent CKD. eGFR CKD Interpretat ion (mL/min/1.7 3 m2) stage >=90 G1 Normal 60-89 G2 Mild decrease 45-59 G3A Mild to moderate decrease 30-44 G3B Moderate to severe decrease 15-29 G4 Severe decrease <15 G5 Kidney failure Vitamin B12 test may not yield results when protein level of sample is too elevated. Ordering Provider: RICCO KWAN Report Released Date/Time: Jun 01, 2024 08:41 AM Reporting Lab: [facility] [address] [address] Performing Lab: [facility] [address] [address] [facility] LIPID PROFILE CHOLESTEROL IN LDL [MASS/VOLUM E] IN SERUM OR PLASMA BY DIRECT ASSAY 71 mg/dL 0 - 100 06/01 Specimen Type: PLASMA Comment: Estimated Glomerular Filtration Rate (eGFR) calculated using the 2020 Chronic Kidney Disease-Epi demiology (CKD-EPI) Collaborati on creatinine equation; units of measure are mL/min/1.73 m2. Results are only valid for adults (>=18 years) whose serum creatinine is in a steady state. eGFR calculation s are not valid for patients with acute kidney injury and for patients on dialysis. Creatinine- based estimates of kidney function may also be inaccurate in patients with reduced creatinine generation due to decreased muscle mass (e.g., malnutritio n, severe hypoalbumin emia, sarcopenia, chronic neuromuscul ar disease, amputations , severe heart failure or liver disease) and in patients with increased creatinine generation due to increased muscle mass (e.g., muscle builders, anabolic steroids) or increased dietary intake. As drug clearance is proportiona l to total GFR and not GFR indexed to body surface area (BSA), in individuals with a BSA substantial ly different than 1.73 m2, drug dosing should be based on the reported eGFR value de-indexed from BSA by multiplying by the individual' s BSA and dividing by 1.73. CKD is diagnosed based on abnormaliti es of kidney structure or function, present for >3 months, with implication s for health and disease. CKD is classified and staged based on cause, eGFR and albuminuria (quantified as urine albumin to creatinine ratio). An eGFR >60 mL/min/1.73 m2 in the absence of increased urine albumin excretion or structural abnormaliti es does not represent CKD. eGFR CKD Interpretat ion (mL/min/1.7 3 m2) stage >=90 G1 Normal 60-89 G2 Mild decrease 45-59 G3A Mild to moderate decrease 30-44 G3B Moderate to severe decrease 15-29 G4 Severe decrease <15 G5 Kidney failure Vitamin B12 test may not yield results when protein level of sample is too elevated. Ordering Provider: RICCO KWAN Report Released Date/Time: Jun 01, 2024 08:41 AM Reporting Lab: [place] [id number] Performing Lab: [address] CBC/PLT LEUKOCYTES [#/VOLUME] IN BLOOD BY AUTOMATED COUNT 7.3 10*3/u L 5.0 - 10.0 06/01 Specimen Type: BLOOD No comment entered. Ordering Provider: RICCO KWAN Report Released Date/Time: Jun 01, 2024 08:41 AM Reporting Lab: [place] [id number] Performing Lab: [address] CBC/PLT ERYTHROCYTE S [#/VOLUME] IN BLOOD BY AUTOMATED COUNT 5.13 10*6/u L 4.6 - 6.2 06/01 Specimen Type: BLOOD No comment entered. Ordering Provider: RICCO KWAN Report Released Date/Time: Jun 01, 2024 08:41 AM Reporting Lab: [address] [address] Performing Lab: [address] [address] [facility] CBC/PLT HEMOGLOBIN [MASS/VOLUM E] IN BLOOD 16.0 g/dL 14.0 - 18.0 06/01 Specimen Type: BLOOD No comment entered. Ordering Provider: RICCO KWAN Report Released Date/Time: Jun 01, 2024 08:41 AM Reporting Lab: [address] [address] Performing Lab: [address] [address] [facility] CBC/PLT HEMATOCRIT [VOLUME FRACTION] OF BLOOD BY AUTOMATED COUNT 47.4 42.0 - 52.0 06/01 Specimen Type: BLOOD No comment entered. Ordering Provider: RICCO KWAN Report Released Date/Time: Jun 01, 2024 08:41 AM Reporting Lab: [address] [address] Performing Lab: [address] [address] [facility] CBC/PLT MCV [ENTITIC VOLUME] BY AUTOMATED COUNT 92.4 fL 80.0 - 94.0 06/01 Specimen Type: BLOOD No comment entered. Ordering Provider: RICCO KWAN Report Released Date/Time: Jun 01, 2024 08:41 AM Reporting Lab: [address] [address] Performing Lab: [address] [address] [facility] CBC/PLT MCH [ENTITIC MASS] BY AUTOMATED COUNT 31.2 pg 27.0 - 31.0 06/01 H Specimen Type: BLOOD No comment entered. Ordering Provider: RICCO KWAN Report Released Date/Time: Jun 01, 2024 08:41 AM Reporting Lab: [address] [address] Performing Lab: [address] [address] [facility] CBC/PLT MCHC [MASS/VOLUM E] BY AUTOMATED COUNT 33.8 g/dL 32.0 - 36.0 06/01 Specimen Type: BLOOD No comment entered. Ordering Provider: RICCO KWAN Report Released Date/Time: Jun 01, 2024 08:41 AM Reporting Lab: [place] [id number] Performing Lab: [place] [id number] CBC/PLT PLATELETS [#/VOLUME] IN BLOOD 267 10*3/u L 150 - 450 06/01 Specimen Type: BLOOD No comment entered. Ordering Provider: RICCO KWAN Report Released Date/Time: Jun 01, 2024 08:41 AM Reporting Lab: [place] [id number] Performing Lab: [place] [id number] CBC/PLT PLATELET MEAN VOLUME [ENTITIC VOLUME] IN BLOOD 9.1 fL 9.0 - 13.1 06/01 Specimen Type: BLOOD No comment entered. Ordering Provider: RICCO KWAN Report Released Date/Time: Jun 01, 2024 08:41 AM Reporting Lab: [place] [id number] Performing Lab: [place] [id number] [place] [address] CBC/PLT ERYTHROCYTE DISTRIBUTIO N WIDTH [ENTITIC VOLUME] BY AUTOMATED COUNT 13.4 11.0 - 16.0 06/01 Specimen Type: BLOOD No comment entered. Ordering Provider: RICCO KWAN Report Released Date/Time: Jun 01, 2024 08:41 AM Reporting Lab: [place] [id number] Performing Lab: [place] [id number] [place] [address] CBC/PLT NUCLEATED ERYTHROCYTE S/100 ERYTHROCYTE S IN BLOOD 0.0 0.0 - 0.0 06/01 Specimen Type: BLOOD No comment entered. Ordering Provider: RICCO KWAN Report Released Date/Time: Jun 01, 2024 08:41 AM Reporting Lab: [facility] [address] [address] Performing Lab: [facility] [address] [phone] [place] [address] GLYCOHEMO GLOBIN HEMOGLOBIN A1C/HEMOGLO BIN.TOTAL IN BLOOD BY HPLC 5.3 4.4 - 5.6 06/01 Specimen Type: BLOOD Comment: [facility] guidelines for A1c interpretat ion: Glycemic control targets are based on Shared Decision Making between clinicians and patients. Criteria used to establish an A1c target recommendat ion can be found at https://www .[place].gov/mary lityandpati entsafety/ and include the use of result accuracy and precision(C V) of the A1c tests clinicians utilize at their own sites of practice. Values obtained from A1C measurement s can vary. For typical A1C assays, a reported value of 7.0 could actually be between 6.72 and 7.28 if measured by a reference method. A reported value of 9.0 could actually be between 8.73 and 9.27. Ref: https://ngs p.org/CAPda ta.asp. The in-house [employer] D-100 analyzer has a historical CV <= 2%. Contact the laboratory for further performance characteris tics of this assay. Ordering Provider: RICCO KWAN Report Released Date/Time: Jun 01, 2024 08:41 AM Reporting Lab: [facility] [address] [address] Performing Lab: [facility] [address] [address] [facility] PANEL 5 CREATININE [MASS/VOLUM E] IN SERUM OR PLASMA 0.96 mg/dL 0.72 - 1.25 06/01 Specimen Type: PLASMA Comment: Estimated Glomerular Filtration Rate (eGFR) calculated using the 2020 Chronic Kidney Disease-Epi demiology (CKD-EPI) Collaborati on creatinine equation; units of measure are mL/min/1.73 m2. Results are only valid for adults (>=18 years) whose serum creatinine is in a steady state. eGFR calculation s are not valid for patients with acute kidney injury and for patients on dialysis. Creatinine- based estimates of kidney function may also be inaccurate in patients with reduced creatinine generation due to decreased muscle mass (e.g., malnutritio n, severe hypoalbumin emia, sarcopenia, chronic neuromuscul ar disease, amputations , severe heart failure or liver disease) and in patients with increased creatinine generation due to increased muscle mass (e.g., muscle builders, anabolic steroids) or increased dietary intake. As drug clearance is proportiona l to total GFR and not GFR indexed to body surface area (BSA), in individuals with a BSA substantial ly different than 1.73 m2, drug dosing should be based on the reported eGFR value de-indexed from BSA by multiplying by the individual' s BSA and dividing by 1.73. CKD is diagnosed based on abnormaliti es of kidney structure or function, present for >3 months, with implication s for health and disease. CKD is classified and staged based on cause, eGFR and albuminuria (quantified as urine albumin to creatinine ratio). An eGFR >60 mL/min/1.73 m2 in the absence of increased urine albumin excretion or structural abnormaliti es does not represent CKD. eGFR CKD Interpretat ion (mL/min/1.7 3 m2) stage >=90 G1 Normal 60-89 G2 Mild decrease 45-59 G3A Mild to moderate decrease 30-44 G3B Moderate to severe decrease 15-29 G4 Severe decrease <15 G5 Kidney failure Vitamin B12 test may not yield results when protein level of sample is too elevated. Ordering Provider: RICCO KWAN Report Released Date/Time: Jun 01, 2024 08:41 AM Reporting Lab: [facility] [address] [address] Performing Lab: [facility] [address] [address] [facility] PANEL 5 UREA NITROGEN [MASS/VOLUM E] IN SERUM OR PLASMA 17 mg/dL 9 - 25 06/01 Specimen Type: PLASMA Comment: Estimated Glomerular Filtration Rate (eGFR) calculated using the 2020 Chronic Kidney Disease-Epi demiology (CKD-EPI) Collaborati on creatinine equation; units of measure are mL/min/1.73 m2. Results are only valid for adults (>=18 years) whose serum creatinine is in a steady state. eGFR calculation s are not valid for patients with acute kidney injury and for patients on dialysis. Creatinine- based estimates of kidney function may also be inaccurate in patients with reduced creatinine generation due to decreased muscle mass (e.g., malnutritio n, severe hypoalbumin emia, sarcopenia, chronic neuromuscul ar disease, amputations , severe heart failure or liver disease) and in patients with increased creatinine generation due to increased muscle mass (e.g., muscle builders, anabolic steroids) or increased dietary intake. As drug clearance is proportiona l to total GFR and not GFR indexed to body surface area (BSA), in individuals with a BSA substantial ly different than 1.73 m2, drug dosing should be based on the reported eGFR value de-indexed from BSA by multiplying by the individual' s BSA and dividing by 1.73. CKD is diagnosed based on abnormaliti es of kidney structure or function, present for >3 months, with implication s for health and disease. CKD is classified and staged based on cause, eGFR and albuminuria (quantified as urine albumin to creatinine ratio). An eGFR >60 mL/min/1.73 m2 in the absence of increased urine albumin excretion or structural abnormaliti es does not represent CKD. eGFR CKD Interpretat ion (mL/min/1.7 3 m2) stage >=90 G1 Normal 60-89 G2 Mild decrease 45-59 G3A Mild to moderate decrease 30-44 G3B Moderate to severe decrease 15-29 G4 Severe decrease <15 G5 Kidney failure Vitamin B12 test may not yield results when protein level of sample is too elevated. Ordering Provider: RICCO KWAN Report Released Date/Time: Jun 01, 2024 08:41 AM Reporting Lab: [facility] [address] [address] Performing Lab: [facility] [address] [address] [facility] PANEL 5 GLUCOSE [MASS/VOLUM E] IN SERUM OR PLASMA 93 mg/dL 74 - 100 06/01 Specimen Type: PLASMA Comment: Estimated Glomerular Filtration Rate (eGFR) calculated using the 2020 Chronic Kidney Disease-Epi demiology (CKD-EPI) Collaborati on creatinine equation; units of measure are mL/min/1.73 m2. Results are only valid for adults (>=18 years) whose serum creatinine is in a steady state. eGFR calculation s are not valid for patients with acute kidney injury and for patients on dialysis. Creatinine- based estimates of kidney function may also be inaccurate in patients with reduced creatinine generation due to decreased muscle mass (e.g., malnutritio n, severe hypoalbumin emia, sarcopenia, chronic neuromuscul ar disease, amputations , severe heart failure or liver disease) and in patients with increased creatinine generation due to increased muscle mass (e.g., muscle builders, anabolic steroids) or increased dietary intake. As drug clearance is proportiona l to total GFR and not GFR indexed to body surface area (BSA), in individuals with a BSA substantial ly different than 1.73 m2, drug dosing should be based on the reported eGFR value de-indexed from BSA by multiplying by the individual' s BSA and dividing by 1.73. CKD is diagnosed based on abnormaliti es of kidney structure or function, present for >3 months, with implication s for health and disease. CKD is classified and staged based on cause, eGFR and albuminuria (quantified as urine albumin to creatinine ratio). An eGFR >60 mL/min/1.73 m2 in the absence of increased urine albumin excretion or structural abnormaliti es does not represent CKD. eGFR CKD Interpretat ion (mL/min/1.7 3 m2) stage >=90 G1 Normal 60-89 G2 Mild decrease 45-59 G3A Mild to moderate decrease 30-44 G3B Moderate to severe decrease 15-29 G4 Severe decrease <15 G5 Kidney failure Vitamin B12 test may not yield results when protein level of sample is too elevated. Ordering Provider: RICCO KWAN Report Released Date/Time: Jun 01, 2024 08:41 AM Reporting Lab: [facility] [address] [facility] [address] Performing Lab: [facility] [address] [facility] [phone] [facility] PANEL 5 SODIUM [MOLES/VOLU ME] IN SERUM OR PLASMA 140 mmol/L 136 - 145 06/01 Specimen Type: PLASMA Comment: Estimated Glomerular Filtration Rate (eGFR) calculated using the 2020 Chronic Kidney Disease-Epi demiology (CKD-EPI) Collaborati on creatinine equation; units of measure are mL/min/1.73 m2. Results are only valid for adults (>=18 years) whose serum creatinine is in a steady state. eGFR calculation s are not valid for patients with acute kidney injury and for patients on dialysis. Creatinine- based estimates of kidney function may also be inaccurate in patients with reduced creatinine generation due to decreased muscle mass (e.g., malnutritio n, severe hypoalbumin emia, sarcopenia, chronic neuromuscul ar disease, amputations , severe heart failure or liver disease) and in patients with increased creatinine generation due to increased muscle mass (e.g., muscle builders, anabolic steroids) or increased dietary intake. As drug clearance is proportiona l to total GFR and not GFR indexed to body surface area (BSA), in individuals with a BSA substantial ly different than 1.73 m2, drug dosing should be based on the reported eGFR value de-indexed from BSA by multiplying by the individual' s BSA and dividing by 1.73. CKD is diagnosed based on abnormaliti es of kidney structure or function, present for >3 months, with implication s for health and disease. CKD is classified and staged based on cause, eGFR and albuminuria (quantified as urine albumin to creatinine ratio). An eGFR >60 mL/min/1.73 m2 in the absence of increased urine albumin excretion or structural abnormaliti es does not represent CKD. eGFR CKD Interpretat ion (mL/min/1.7 3 m2) stage >=90 G1 Normal 60-89 G2 Mild decrease 45-59 G3A Mild to moderate decrease 30-44 G3B Moderate to severe decrease 15-29 G4 Severe decrease <15 G5 Kidney failure Vitamin B12 test may not yield results when protein level of sample is too elevated. Ordering Provider: RICCO KWAN Report Released Date/Time: Jun 01, 2024 08:41 AM Reporting Lab: [facility] [place] [id number] [facility] [phone] Performing Lab: TREV[facility] [address] [address] [facility] PANEL 5 POTASSIUM [MOLES/VOLU ME] IN SERUM OR PLASMA 4.8 mmol/L 3.5 - 5.1 06/01 Specimen Type: PLASMA Comment: Estimated Glomerular Filtration Rate (eGFR) calculated using the 2020 Chronic Kidney Disease-Epi demiology (CKD-EPI) Collaborati on creatinine equation; units of measure are mL/min/1.73 m2. Results are only valid for adults (>=18 years) whose serum creatinine is in a steady state. eGFR calculation s are not valid for patients with acute kidney injury and for patients on dialysis. Creatinine- based estimates of kidney function may also be inaccurate in patients with reduced creatinine generation due to decreased muscle mass (e.g., malnutritio n, severe hypoalbumin emia, sarcopenia, chronic neuromuscul ar disease, amputations , severe heart failure or liver disease) and in patients with increased creatinine generation due to increased muscle mass (e.g., muscle builders, anabolic steroids) or increased dietary intake. As drug clearance is proportiona l to total GFR and not GFR indexed to body surface area (BSA), in individuals with a BSA substantial ly different than 1.73 m2, drug dosing should be based on the reported eGFR value de-indexed from BSA by multiplying by the individual' s BSA and dividing by 1.73. CKD is diagnosed based on abnormaliti es of kidney structure or function, present for >3 months, with implication s for health and disease. CKD is classified and staged based on cause, eGFR and albuminuria (quantified as urine albumin to creatinine ratio). An eGFR >60 mL/min/1.73 m2 in the absence of increased urine albumin excretion or structural abnormaliti es does not represent CKD. eGFR CKD Interpretat ion (mL/min/1.7 3 m2) stage >=90 G1 Normal 60-89 G2 Mild decrease 45-59 G3A Mild to moderate decrease 30-44 G3B Moderate to severe decrease 15-29 G4 Severe decrease <15 G5 Kidney failure Vitamin B12 test may not yield results when protein level of sample is too elevated. Ordering Provider: RICCO KWAN Report Released Date/Time: Jun 01, 2024 08:41 AM Reporting Lab: JULIO C[facility] [address] [address] Performing Lab: [address] [address] [facility] PANEL 5 CHLORIDE [MOLES/VOLU ME] IN SERUM OR PLASMA 109 mmol/L 98 - 107 06/01 H Specimen Type: PLASMA Comment: Estimated Glomerular Filtration Rate (eGFR) calculated using the 2020 Chronic Kidney Disease-Epi demiology (CKD-EPI) Collaborati on creatinine equation; units of measure are mL/min/1.73 m2. Results are only valid for adults (>=18 years) whose serum creatinine is in a steady state. eGFR calculation s are not valid for patients with acute kidney injury and for patients on dialysis. Creatinine- based estimates of kidney function may also be inaccurate in patients with reduced creatinine generation due to decreased muscle mass (e.g., malnutritio n, severe hypoalbumin emia, sarcopenia, chronic neuromuscul ar disease, amputations , severe heart failure or liver disease) and in patients with increased creatinine generation due to increased muscle mass (e.g., muscle builders, anabolic steroids) or increased dietary intake. As drug clearance is proportiona l to total GFR and not GFR indexed to body surface area (BSA), in individuals with a BSA substantial ly different than 1.73 m2, drug dosing should be based on the reported eGFR value de-indexed from BSA by multiplying by the individual' s BSA and dividing by 1.73. CKD is diagnosed based on abnormaliti es of kidney structure or function, present for >3 months, with implication s for health and disease. CKD is classified and staged based on cause, eGFR and albuminuria (quantified as urine albumin to creatinine ratio). An eGFR >60 mL/min/1.73 m2 in the absence of increased urine albumin excretion or structural abnormaliti es does not represent CKD. eGFR CKD Interpretat ion (mL/min/1.7 3 m2) stage >=90 G1 Normal 60-89 G2 Mild decrease 45-59 G3A Mild to moderate decrease 30-44 G3B Moderate to severe decrease 15-29 G4 Severe decrease <15 G5 Kidney failure Vitamin B12 test may not yield results when protein level of sample is too elevated. Ordering Provider: RICCO KWAN Report Released Date/Time: Jun 01, 2024 08:41 AM Reporting Lab: [facility] [address] [phone] Performing Lab: [facility] [address] [address] [facility] PANEL 5 CARBON DIOXIDE, TOTAL [MOLES/VOLU ME] IN SERUM OR PLASMA 24 mmol/L 06/01 Specimen Type: PLASMA Comment: Estimated Glomerular Filtration Rate (eGFR) calculated using the 2020 Chronic Kidney Disease-Epi demiology (CKD-EPI) Collaborati on creatinine equation; units of measure are mL/min/1.73 m2. Results are only valid for adults (>=18 years) whose serum creatinine is in a steady state. eGFR calculation s are not valid for patients with acute kidney injury and for patients on dialysis. Creatinine- based estimates of kidney function may also be inaccurate in patients with reduced creatinine generation due to decreased muscle mass (e.g., malnutritio n, severe hypoalbumin emia, sarcopenia, chronic neuromuscul ar disease, amputations , severe heart failure or liver disease) and in patients with increased creatinine generation due to increased muscle mass (e.g., muscle builders, anabolic steroids) or increased dietary intake. As drug clearance is proportiona l to total GFR and not GFR indexed to body surface area (BSA), in individuals with a BSA substantial ly different than 1.73 m2, drug dosing should be based on the reported eGFR value de-indexed from BSA by multiplying by the individual' s BSA and dividing by 1.73. CKD is diagnosed based on abnormaliti es of kidney structure or function, present for >3 months, with implication s for health and disease. CKD is classified and staged based on cause, eGFR and albuminuria (quantified as urine albumin to creatinine ratio). An eGFR >60 mL/min/1.73 m2 in the absence of increased urine albumin excretion or structural abnormaliti es does not represent CKD. eGFR CKD Interpretat ion (mL/min/1.7 3 m2) stage >=90 G1 Normal 60-89 G2 Mild decrease 45-59 G3A Mild to moderate decrease 30-44 G3B Moderate to severe decrease 15-29 G4 Severe decrease <15 G5 Kidney failure Vitamin B12 test may not yield results when protein level of sample is too elevated. Ordering Provider: RICOC KWAN Report Released Date/Time: Jun 01, 2024 08:41 AM Reporting Lab: [facility] [address] [address] Performing Lab: [facility] [address] [address] [facility] PANEL 5 CALCIUM [MASS/VOLUM E] IN SERUM OR PLASMA 9.4 mg/dL 8.4 - 10.2 06/01 Specimen Type: PLASMA Comment: Estimated Glomerular Filtration Rate (eGFR) calculated using the 2020 Chronic Kidney Disease-Epi demiology (CKD-EPI) Collaborati on creatinine equation; units of measure are mL/min/1.73 m2. Results are only valid for adults (>=18 years) whose serum creatinine is in a steady state. eGFR calculation s are not valid for patients with acute kidney injury and for patients on dialysis. Creatinine- based estimates of kidney function may also be inaccurate in patients with reduced creatinine generation due to decreased muscle mass (e.g., malnutritio n, severe hypoalbumin emia, sarcopenia, chronic neuromuscul ar disease, amputations , severe heart failure or liver disease) and in patients with increased creatinine generation due to increased muscle mass (e.g., muscle builders, anabolic steroids) or increased dietary intake. As drug clearance is proportiona l to total GFR and not GFR indexed to body surface area (BSA), in individuals with a BSA substantial ly different than 1.73 m2, drug dosing should be based on the reported eGFR value de-indexed from BSA by multiplying by the individual' s BSA and dividing by 1.73. CKD is diagnosed based on abnormaliti es of kidney structure or function, present for >3 months, with implication s for health and disease. CKD is classified and staged based on cause, eGFR and albuminuria (quantified as urine albumin to creatinine ratio). An eGFR >60 mL/min/1.73 m2 in the absence of increased urine albumin excretion or structural abnormaliti es does not represent CKD. eGFR CKD Interpretat ion (mL/min/1.7 3 m2) stage >=90 G1 Normal 60-89 G2 Mild decrease 45-59 G3A Mild to moderate decrease 30-44 G3B Moderate to severe decrease 15-29 G4 Severe decrease <15 G5 Kidney failure Vitamin B12 test may not yield results when protein level of sample is too elevated. Ordering Provider: RICCO KWAN Report Released Date/Time: Jun 01, 2024 08:41 AM Reporting Lab: [facility] [address] [address] Performing Lab: [facility] [address] [address] [facility] PANEL 5 PROTEIN [MASS/VOLUM E] IN SERUM OR PLASMA 6.7 g/dL 6.4 - 8.3 06/01 Specimen Type: PLASMA Comment: Estimated Glomerular Filtration Rate (eGFR) calculated using the 2020 Chronic Kidney Disease-Epi demiology (CKD-EPI) Collaborati on creatinine equation; units of measure are mL/min/1.73 m2. Results are only valid for adults (>=18 years) whose serum creatinine is in a steady state. eGFR calculation s are not valid for patients with acute kidney injury and for patients on dialysis. Creatinine- based estimates of kidney function may also be inaccurate in patients with reduced creatinine generation due to decreased muscle mass (e.g., malnutritio n, severe hypoalbumin emia, sarcopenia, chronic neuromuscul ar disease, amputations , severe heart failure or liver disease) and in patients with increased creatinine generation due to increased muscle mass (e.g., muscle builders, anabolic steroids) or increased dietary intake. As drug clearance is proportiona l to total GFR and not GFR indexed to body surface area (BSA), in individuals with a BSA substantial ly different than 1.73 m2, drug dosing should be based on the reported eGFR value de-indexed from BSA by multiplying by the individual' s BSA and dividing by 1.73. CKD is diagnosed based on abnormaliti es of kidney structure or function, present for >3 months, with implication s for health and disease. CKD is classified and staged based on cause, eGFR and albuminuria (quantified as urine albumin to creatinine ratio). An eGFR >60 mL/min/1.73 m2 in the absence of increased urine albumin excretion or structural abnormaliti es does not represent CKD. eGFR CKD Interpretat ion (mL/min/1.7 3 m2) stage >=90 G1 Normal 60-89 G2 Mild decrease 45-59 G3A Mild to moderate decrease 30-44 G3B Moderate to severe decrease 15-29 G4 Severe decrease <15 G5 Kidney failure Vitamin B12 test may not yield results when protein level of sample is too elevated. Ordering Provider: RICCO KWAN Report Released Date/Time: Jun 01, 2024 08:41 AM Reporting Lab: [facility] [address] [address] Performing Lab: [facility] [address] [address] [facility] PANEL 5 ALBUMIN [MASS/VOLUM E] IN SERUM OR PLASMA 4.3 g/dL 3.5 - 5.2 06/01 Specimen Type: PLASMA Comment: Estimated Glomerular Filtration Rate (eGFR) calculated using the 2020 Chronic Kidney Disease-Epi demiology (CKD-EPI) Collaborati on creatinine equation; units of measure are mL/min/1.73 m2. Results are only valid for adults (>=18 years) whose serum creatinine is in a steady state. eGFR calculation s are not valid for patients with acute kidney injury and for patients on dialysis. Creatinine- based estimates of kidney function may also be inaccurate in patients with reduced creatinine generation due to decreased muscle mass (e.g., malnutritio n, severe hypoalbumin emia, sarcopenia, chronic neuromuscul ar disease, amputations , severe heart failure or liver disease) and in patients with increased creatinine generation due to increased muscle mass (e.g., muscle builders, anabolic steroids) or increased dietary intake. As drug clearance is proportiona l to total GFR and not GFR indexed to body surface area (BSA), in individuals with a BSA substantial ly different than 1.73 m2, drug dosing should be based on the reported eGFR value de-indexed from BSA by multiplying by the individual' s BSA and dividing by 1.73. CKD is diagnosed based on abnormaliti es of kidney structure or function, present for >3 months, with implication s for health and disease. CKD is classified and staged based on cause, eGFR and albuminuria (quantified as urine albumin to creatinine ratio). An eGFR >60 mL/min/1.73 m2 in the absence of increased urine albumin excretion or structural abnormaliti es does not represent CKD. eGFR CKD Interpretat ion (mL/min/1.7 3 m2) stage >=90 G1 Normal 60-89 G2 Mild decrease 45-59 G3A Mild to moderate decrease 30-44 G3B Moderate to severe decrease 15-29 G4 Severe decrease <15 G5 Kidney failure Vitamin B12 test may not yield results when protein level of sample is too elevated. Ordering Provider: RICCO KWAN Report Released Date/Time: Jun 01, 2024 08:41 AM Reporting Lab: [facility] [address] [address] Performing Lab: [facility] [address] [address] [facility] PANEL 5 BILIRUBIN.T OTAL [MASS/VOLUM E] IN SERUM OR PLASMA 0.9 mg/dL 0.2 - 1.2 06/01 Specimen Type: PLASMA Comment: Estimated Glomerular Filtration Rate (eGFR) calculated using the 2020 Chronic Kidney Disease-Epi demiology (CKD-EPI) Collaborati on creatinine equation; units of measure are mL/min/1.73 m2. Results are only valid for adults (>=18 years) whose serum creatinine is in a steady state. eGFR calculation s are not valid for patients with acute kidney injury and for patients on dialysis. Creatinine- based estimates of kidney function may also be inaccurate in patients with reduced creatinine generation due to decreased muscle mass (e.g., malnutritio n, severe hypoalbumin emia, sarcopenia, chronic neuromuscul ar disease, amputations , severe heart failure or liver disease) and in patients with increased creatinine generation due to increased muscle mass (e.g., muscle builders, anabolic steroids) or increased dietary intake. As drug clearance is proportiona l to total GFR and not GFR indexed to body surface area (BSA), in individuals with a BSA substantial ly different than 1.73 m2, drug dosing should be based on the reported eGFR value de-indexed from BSA by multiplying by the individual' s BSA and dividing by 1.73. CKD is diagnosed based on abnormaliti es of kidney structure or function, present for >3 months, with implication s for health and disease. CKD is classified and staged based on cause, eGFR and albuminuria (quantified as urine albumin to creatinine ratio). An eGFR >60 mL/min/1.73 m2 in the absence of increased urine albumin excretion or structural abnormaliti es does not represent CKD. eGFR CKD Interpretat ion (mL/min/1.7 3 m2) stage >=90 G1 Normal 60-89 G2 Mild decrease 45-59 G3A Mild to moderate decrease 30-44 G3B Moderate to severe decrease 15-29 G4 Severe decrease <15 G5 Kidney failure Vitamin B12 test may not yield results when protein level of sample is too elevated. Ordering Provider: RICCO KWAN Report Released Date/Time: Jun 01, 2024 08:41 AM Reporting Lab: [facility] [address] [facility] [phone] Performing Lab: [facility] [address] [facility] [address] [facility] PANEL 5 ASPARTATE AMINOTRANSF ERASE [ENZYMATIC ACTIVITY/VO LUME] IN SERUM OR PLASMA 27 U/L 5 - 34 06/01 Specimen Type: PLASMA Comment: Estimated Glomerular Filtration Rate (eGFR) calculated using the 2020 Chronic Kidney Disease-Epi demiology (CKD-EPI) Collaborati on creatinine equation; units of measure are mL/min/1.73 m2. Results are only valid for adults (>=18 years) whose serum creatinine is in a steady state. eGFR calculation s are not valid for patients with acute kidney injury and for patients on dialysis. Creatinine- based estimates of kidney function may also be inaccurate in patients with reduced creatinine generation due to decreased muscle mass (e.g., malnutritio n, severe hypoalbumin emia, sarcopenia, chronic neuromuscul ar disease, amputations , severe heart failure or liver disease) and in patients with increased creatinine generation due to increased muscle mass (e.g., muscle builders, anabolic steroids) or increased dietary intake. As drug clearance is proportiona l to total GFR and not GFR indexed to body surface area (BSA), in individuals with a BSA substantial ly different than 1.73 m2, drug dosing should be based on the reported eGFR value de-indexed from BSA by multiplying by the individual' s BSA and dividing by 1.73. CKD is diagnosed based on abnormaliti es of kidney structure or function, present for >3 months, with implication s for health and disease. CKD is classified and staged based on cause, eGFR and albuminuria (quantified as urine albumin to creatinine ratio). An eGFR >60 mL/min/1.73 m2 in the absence of increased urine albumin excretion or structural abnormaliti es does not represent CKD. eGFR CKD Interpretat ion (mL/min/1.7 3 m2) stage >=90 G1 Normal 60-89 G2 Mild decrease 45-59 G3A Mild to moderate decrease 30-44 G3B Moderate to severe decrease 15-29 G4 Severe decrease <15 G5 Kidney failure Vitamin B12 test may not yield results when protein level of sample is too elevated. Ordering Provider: RICCO KWAN Report Released Date/Time: Jun 01, 2024 08:41 AM Reporting Lab: [facility] [address] [address] Performing Lab: [facility] [address] [address] [facility] PANEL 5 ALANINE AMINOTRANSF ERASE [ENZYMATIC ACTIVITY/VO LUME] IN SERUM OR PLASMA 15 U/L 0 - 55 06/01 Specimen Type: PLASMA Comment: Estimated Glomerular Filtration Rate (eGFR) calculated using the 2020 Chronic Kidney Disease-Epi demiology (CKD-EPI) Collaborati on creatinine equation; units of measure are mL/min/1.73 m2. Results are only valid for adults (>=18 years) whose serum creatinine is in a steady state. eGFR calculation s are not valid for patients with acute kidney injury and for patients on dialysis. Creatinine- based estimates of kidney function may also be inaccurate in patients with reduced creatinine generation due to decreased muscle mass (e.g., malnutritio n, severe hypoalbumin emia, sarcopenia, chronic neuromuscul ar disease, amputations , severe heart failure or liver disease) and in patients with increased creatinine generation due to increased muscle mass (e.g., muscle builders, anabolic steroids) or increased dietary intake. As drug clearance is proportiona l to total GFR and not GFR indexed to body surface area (BSA), in individuals with a BSA substantial ly different than 1.73 m2, drug dosing should be based on the reported eGFR value de-indexed from BSA by multiplying by the individual' s BSA and dividing by 1.73. CKD is diagnosed based on abnormaliti es of kidney structure or function, present for >3 months, with implication s for health and disease. CKD is classified and staged based on cause, eGFR and albuminuria (quantified as urine albumin to creatinine ratio). An eGFR >60 mL/min/1.73 m2 in the absence of increased urine albumin excretion or structural abnormaliti es does not represent CKD. eGFR CKD Interpretat ion (mL/min/1.7 3 m2) stage >=90 G1 Normal 60-89 G2 Mild decrease 45-59 G3A Mild to moderate decrease 30-44 G3B Moderate to severe decrease 15-29 G4 Severe decrease <15 G5 Kidney failure Vitamin B12 test may not yield results when protein level of sample is too elevated. Ordering Provider: RICCO KWAN Report Released Date/Time: Jun 01, 2024 08:41 AM Reporting Lab: [facility] [address] [address] Performing Lab: [facility] [address] [address] [facility] PANEL 5 ANION GAP 3 IN SERUM OR PLASMA 7 meq/L 3 - 19 06/01 Specimen Type: PLASMA Comment: Estimated Glomerular Filtration Rate (eGFR) calculated using the 2020 Chronic Kidney Disease-Epi demiology (CKD-EPI) Collaborati on creatinine equation; units of measure are mL/min/1.73 m2. Results are only valid for adults (>=18 years) whose serum creatinine is in a steady state. eGFR calculation s are not valid for patients with acute kidney injury and for patients on dialysis. Creatinine- based estimates of kidney function may also be inaccurate in patients with reduced creatinine generation due to decreased muscle mass (e.g., malnutritio n, severe hypoalbumin emia, sarcopenia, chronic neuromuscul ar disease, amputations , severe heart failure or liver disease) and in patients with increased creatinine generation due to increased muscle mass (e.g., muscle builders, anabolic steroids) or increased dietary intake. As drug clearance is proportiona l to total GFR and not GFR indexed to body surface area (BSA), in individuals with a BSA substantial ly different than 1.73 m2, drug dosing should be based on the reported eGFR value de-indexed from BSA by multiplying by the individual' s BSA and dividing by 1.73. CKD is diagnosed based on abnormaliti es of kidney structure or function, present for >3 months, with implication s for health and disease. CKD is classified and staged based on cause, eGFR and albuminuria (quantified as urine albumin to creatinine ratio). An eGFR >60 mL/min/1.73 m2 in the absence of increased urine albumin excretion or structural abnormaliti es does not represent CKD. eGFR CKD Interpretat ion (mL/min/1.7 3 m2) stage >=90 G1 Normal 60-89 G2 Mild decrease 45-59 G3A Mild to moderate decrease 30-44 G3B Moderate to severe decrease 15-29 G4 Severe decrease <15 G5 Kidney failure Vitamin B12 test may not yield results when protein level of sample is too elevated. Ordering Provider: RICCO KWAN Report Released Date/Time: Jun 01, 2024 08:41 AM Reporting Lab: [facility] [address] [place] [phone] Performing Lab: [facility] [address] [address] [facility] PANEL 5 ALKALINE PHOSPHATASE [ENZYMATIC ACTIVITY/VO LUME] IN SERUM OR PLASMA 70 U/L 40 - 150 06/01 Specimen Type: PLASMA Comment: Estimated Glomerular Filtration Rate (eGFR) calculated using the 2020 Chronic Kidney Disease-Epi demiology (CKD-EPI) Collaborati on creatinine equation; units of measure are mL/min/1.73 m2. Results are only valid for adults (>=18 years) whose serum creatinine is in a steady state. eGFR calculation s are not valid for patients with acute kidney injury and for patients on dialysis. Creatinine- based estimates of kidney function may also be inaccurate in patients with reduced creatinine generation due to decreased muscle mass (e.g., malnutritio n, severe hypoalbumin emia, sarcopenia, chronic neuromuscul ar disease, amputations , severe heart failure or liver disease) and in patients with increased creatinine generation due to increased muscle mass (e.g., muscle builders, anabolic steroids) or increased dietary intake. As drug clearance is proportiona l to total GFR and not GFR indexed to body surface area (BSA), in individuals with a BSA substantial ly different than 1.73 m2, drug dosing should be based on the reported eGFR value de-indexed from BSA by multiplying by the individual' s BSA and dividing by 1.73. CKD is diagnosed based on abnormaliti es of kidney structure or function, present for >3 months, with implication s for health and disease. CKD is classified and staged based on cause, eGFR and albuminuria (quantified as urine albumin to creatinine ratio). An eGFR >60 mL/min/1.73 m2 in the absence of increased urine albumin excretion or structural abnormaliti es does not represent CKD. eGFR CKD Interpretat ion (mL/min/1.7 3 m2) stage >=90 G1 Normal 60-89 G2 Mild decrease 45-59 G3A Mild to moderate decrease 30-44 G3B Moderate to severe decrease 15-29 G4 Severe decrease <15 G5 Kidney failure Vitamin B12 test may not yield results when protein level of sample is too elevated. Ordering Provider: RICCO KWAN Report Released Date/Time: Jun 01, 2024 08:41 AM Reporting Lab: [facility] [address] [address] Performing Lab: [facility] [address] [address] [facility] 5 GLOMERULAR FILTRATION RATE/1.73 SQ M.PREDICTED [VOLUME RATE/AREA] IN SERUM, PLASMA OR BLOOD BY CREATININE- BASED FORMULA (CKD-EPI 2020) >90 06/01 Specimen Type: PLASMA Comment: Estimated Glomerular Filtration Rate (eGFR) calculated using the 2020 Chronic Kidney Disease-Epi demiology (CKD-EPI) Collaborati on creatinine equation; units of measure are mL/min/1.73 m2. Results are only valid for adults (>=18 years) whose serum creatinine is in a steady state. eGFR calculation s are not valid for patients with acute kidney injury and for patients on dialysis. Creatinine- based estimates of kidney function may also be inaccurate in patients with reduced creatinine generation due to decreased muscle mass (e.g., malnutritio n, severe hypoalbumin emia, sarcopenia, chronic neuromuscul ar disease, amputations , severe heart failure or liver disease) and in patients with increased creatinine generation due to increased muscle mass (e.g., muscle builders, anabolic steroids) or increased dietary intake. As drug clearance is proportiona l to total GFR and not GFR indexed to body surface area (BSA), in individuals with a BSA substantial ly different than 1.73 m2, drug dosing should be based on the reported eGFR value de-indexed from BSA by multiplying by the individual' s BSA and dividing by 1.73. CKD is diagnosed based on abnormaliti es of kidney structure or function, present for >3 months, with implication s for health and disease. CKD is classified and staged based on cause, eGFR and albuminuria (quantified as urine albumin to creatinine ratio). An eGFR >60 mL/min/1.73 m2 in the absence of increased urine albumin excretion or structural abnormaliti es does not represent CKD. eGFR CKD Interpretat ion (mL/min/1.7 3 m2) stage >=90 G1 Normal 60-89 G2 Mild decrease 45-59 G3A Mild to moderate decrease 30-44 G3B Moderate to severe decrease 15-29 G4 Severe decrease <15 G5 Kidney failure Vitamin B12 test may not yield results when protein level of sample is too elevated. Ordering Provider: RICCO KWAN Report Released Date/Time: Jun 01, 2024 08:41 AM Reporting Lab: [facility] [address] [address] Performing Lab: [facility] [address] [address] [facility] TSH THYROTROPIN [UNITS/VOLU ME] IN SERUM OR PLASMA 1.2776 m[IU]/ mL 0.3500 - 4.9400 06/01 Specimen Type: PLASMA Comment: Estimated Glomerular Filtration Rate (eGFR) calculated using the 2020 Chronic Kidney Disease-Epi demiology (CKD-EPI) Collaborati on creatinine equation; units of measure are mL/min/1.73 m2. Results are only valid for adults (>=18 years) whose serum creatinine is in a steady state. eGFR calculation s are not valid for patients with acute kidney injury and for patients on dialysis. Creatinine- based estimates of kidney function may also be inaccurate in patients with reduced creatinine generation due to decreased muscle mass (e.g., malnutritio n, severe hypoalbumin emia, sarcopenia, chronic neuromuscul ar disease, amputations , severe heart failure or liver disease) and in patients with increased creatinine generation due to increased muscle mass (e.g., muscle builders, anabolic steroids) or increased dietary intake. As drug clearance is proportiona l to total GFR and not GFR indexed to body surface area (BSA), in individuals with a BSA substantial ly different than 1.73 m2, drug dosing should be based on the reported eGFR value de-indexed from BSA by multiplying by the individual' s BSA and dividing by 1.73. CKD is diagnosed based on abnormaliti es of kidney structure or function, present for >3 months, with implication s for health and disease. CKD is classified and staged based on cause, eGFR and albuminuria (quantified as urine albumin to creatinine ratio). An eGFR >60 mL/min/1.73 m2 in the absence of increased urine albumin excretion or structural abnormaliti es does not represent CKD. eGFR CKD Interpretat ion (mL/min/1.7 3 m2) stage >=90 G1 Normal 60-89 G2 Mild decrease 45-59 G3A Mild to moderate decrease 30-44 G3B Moderate to severe decrease 15-29 G4 Severe decrease <15 G5 Kidney failure Ordering Provider: RICCO KWAN Report Released Date/Time: Jun 01, 2024 08:41 AM Reporting Lab: [facility] [address] [address] Performing Lab: T[facility] [address] [address] [facility] PSA PROSTATE SPECIFIC AG [MASS/VOLUM E] IN SERUM OR PLASMA 0.471 ng/mL 0 - 3.999 06/01 Specimen Type: SERUM No comment entered. Ordering Provider: RICCO KWAN Report Released Date/Time: Jun 01, 2024 08:41 AM Reporting Lab: [facility] [address] [address] Performing Lab: T[facility] [address] [address] [facility] B12 VITAMIN COBALAMIN (VITAMIN B12) [MASS/VOLUM E] IN SERUM OR PLASMA >2000p g/mL 213 - 816 06/01 H Specimen Type: PLASMA Comment: Estimated Glomerular Filtration Rate (eGFR) calculated using the 2020 Chronic Kidney Disease-Epi demiology (CKD-EPI) Collaborati on creatinine equation; units of measure are mL/min/1.73 m2. Results are only valid for adults (>=18 years) whose serum creatinine is in a steady state. eGFR calculation s are not valid for patients with acute kidney injury and for patients on dialysis. Creatinine- based estimates of kidney function may also be inaccurate in patients with reduced creatinine generation due to decreased muscle mass (e.g., malnutritio n, severe hypoalbumin emia, sarcopenia, chronic neuromuscul ar disease, amputations , severe heart failure or liver disease) and in patients with increased creatinine generation due to increased muscle mass (e.g., muscle builders, anabolic steroids) or increased dietary intake. As drug clearance is proportiona l to total GFR and not GFR indexed to body surface area (BSA), in individuals with a BSA substantial ly different than 1.73 m2, drug dosing should be based on the reported eGFR value de-indexed from BSA by multiplying by the individual' s BSA and dividing by 1.73. CKD is diagnosed based on abnormaliti es of kidney structure or function, present for >3 months, with implication s for health and disease. CKD is classified and staged based on cause, eGFR and albuminuria (quantified as urine albumin to creatinine ratio). An eGFR >60 mL/min/1.73 m2 in the absence of increased urine albumin excretion or structural abnormaliti es does not represent CKD. eGFR CKD Interpretat ion (mL/min/1.7 3 m2) stage >=90 G1 Normal 60-89 G2 Mild decrease 45-59 G3A Mild to moderate decrease 30-44 G3B Moderate to severe decrease 15-29 G4 Severe decrease <15 G5 Kidney failure Vitamin B12 test may not yield results when protein level of sample is too elevated. Ordering Provider: RICCO KWAN Report Released Date/Time: Jun 01, 2024 08:41 AM Reporting Lab: [place] [id number] Performing Lab: [place] [id number] [place] [address] 25-OH VITAMIN D 25-HYDROXYV ITAMIN D3 [MASS/VOLUM E] IN SERUM OR PLASMA 39.4 ng/mL 20.0 - 50.0 06/01 Specimen Type: SERUM Comment: The National Institutes of Health (NIH) recommendat ions state: <12 ng/mL - Deficient 20 - 50 ng/mL - Optimal Levels - adequate for most people. >50 ng/mL - Increased risk of hypercalciu gris/other health problems - clinical correlation is required. These reference ranges represent clinical decision values rather than population- based reference values. Ordering Provider: RICCO KWAN Report Released Date/Time: Jun 01, 2024 08:41 AM Reporting Lab: [place] [id number] Performing Lab: [address] GLYCOHEMO GLOBIN HEMOGLOBIN A1C/HEMOGLO BIN.TOTAL IN BLOOD BY HPLC 5.1 4.4 - 6.4 05/24 Specimen Type: BLOOD Comment: [facility] guidelines for A1c interpretat ion: Glycemic control targets are based on Shared Decision Making between clinicians and patients. Criteria used to establish an A1c target recommendat ion can be found at https://www .[place].gov/mary lityandpati entsafety/ and include the use of result accuracy and precision(C V) of the A1c tests clinicians utilize at their own sites of practice. Values obtained from A1C measurement s can vary. For typical A1C assays, a reported value of 7.0 could actually be between 6.72 and 7.28 if measured by a reference method. A reported value of 9.0 could actually be between 8.73 and 9.27. Ref: https://ngs p.org/CAPda ta.asp. The in-house [employer] D-100 analyzer has a historical CV <= 2%. Contact the laboratory for further performance characteris tics of this assay. Ordering Provider: RICCO KWAN Report Released Date/Time: May 25, 2023 11:56 AM Reporting Lab: [facility] [address] [facility] [phone] Performing Lab: [facility] [address] [facility] [phone] [facility] LIPID PROFILE CHOLESTEROL [MASS/VOLUM E] IN SERUM OR PLASMA 140 mg/dL 0 - 199 05/24 Specimen Type: PLASMA Comment: Estimated Glomerular Filtration Rate (eGFR) calculated using the 2020 Chronic Kidney Disease-Epi demiology (CKD-EPI) Collaborati on creatinine equation; units of measure are mL/min/1.73 m2. Results are only valid for adults (>=18 years) whose serum creatinine is in a steady state. eGFR calculation s are not valid for patients with acute kidney injury and for patients on dialysis. Creatinine- based estimates of kidney function may also be inaccurate in patients with reduced creatinine generation due to decreased muscle mass (e.g., malnutritio n, severe hypoalbumin emia, sarcopenia, chronic neuromuscul ar disease, amputations , severe heart failure or liver disease) and in patients with increased creatinine generation due to increased muscle mass (e.g., muscle builders, anabolic steroids) or increased dietary intake. As drug clearance is proportiona l to total GFR and not GFR indexed to body surface area (BSA), in individuals with a BSA substantial ly different than 1.73 m2, drug dosing should be based on the reported eGFR value de-indexed from BSA by multiplying by the individual' s BSA and dividing by 1.73. CKD is diagnosed based on abnormaliti es of kidney structure or function, present for >3 months, with implication s for health and disease. CKD is classified and staged based on cause, eGFR and albuminuria (quantified as urine albumin to creatinine ratio). An eGFR >60 mL/min/1.73 m2 in the absence of increased urine albumin excretion or structural abnormaliti es does not represent CKD. eGFR CKD Interpretat ion (mL/min/1.7 3 m2) stage >=90 G1 Normal 60-89 G2 Mild decrease 45-59 G3A Mild to moderate decrease 30-44 G3B Moderate to severe decrease 15-29 G4 Severe decrease <15 G5 Kidney failure Vitamin B12 test may not yield results when protein level of sample is too elevated. Ordering Provider: RICCO KWAN Report Released Date/Time: May 25, 2023 11:56 AM Reporting Lab: [facility] [address] [facility] [address] Performing Lab: [facility] C[facility]SAR[facility] [address] [address] [facility] LIPID PROFILE TRIGLYCERID E [MASS/VOLUM E] IN SERUM OR PLASMA 56 mg/dL 0 - 149 05/24 Specimen Type: PLASMA Comment: Estimated Glomerular Filtration Rate (eGFR) calculated using the 2020 Chronic Kidney Disease-Epi demiology (CKD-EPI) Collaborati on creatinine equation; units of measure are mL/min/1.73 m2. Results are only valid for adults (>=18 years) whose serum creatinine is in a steady state. eGFR calculation s are not valid for patients with acute kidney injury and for patients on dialysis. Creatinine- based estimates of kidney function may also be inaccurate in patients with reduced creatinine generation due to decreased muscle mass (e.g., malnutritio n, severe hypoalbumin emia, sarcopenia, chronic neuromuscul ar disease, amputations , severe heart failure or liver disease) and in patients with increased creatinine generation due to increased muscle mass (e.g., muscle builders, anabolic steroids) or increased dietary intake. As drug clearance is proportiona l to total GFR and not GFR indexed to body surface area (BSA), in individuals with a BSA substantial ly different than 1.73 m2, drug dosing should be based on the reported eGFR value de-indexed from BSA by multiplying by the individual' s BSA and dividing by 1.73. CKD is diagnosed based on abnormaliti es of kidney structure or function, present for >3 months, with implication s for health and disease. CKD is classified and staged based on cause, eGFR and albuminuria (quantified as urine albumin to creatinine ratio). An eGFR >60 mL/min/1.73 m2 in the absence of increased urine albumin excretion or structural abnormaliti es does not represent CKD. eGFR CKD Interpretat ion (mL/min/1.7 3 m2) stage >=90 G1 Normal 60-89 G2 Mild decrease 45-59 G3A Mild to moderate decrease 30-44 G3B Moderate to severe decrease 15-29 G4 Severe decrease <15 G5 Kidney failure Vitamin B12 test may not yield results when protein level of sample is too elevated. Ordering Provider: RICCO KWAN Report Released Date/Time: May 25, 2023 11:56 AM Reporting Lab: [address] [address] Performing Lab: [address] [address] [facility] LIPID PROFILE CHOLESTEROL IN HDL [MASS/VOLUM E] IN SERUM OR PLASMA 53 mg/dL 40 - 69 05/24 Specimen Type: PLASMA Comment: Estimated Glomerular Filtration Rate (eGFR) calculated using the 2020 Chronic Kidney Disease-Epi demiology (CKD-EPI) Collaborati on creatinine equation; units of measure are mL/min/1.73 m2. Results are only valid for adults (>=18 years) whose serum creatinine is in a steady state. eGFR calculation s are not valid for patients with acute kidney injury and for patients on dialysis. Creatinine- based estimates of kidney function may also be inaccurate in patients with reduced creatinine generation due to decreased muscle mass (e.g., malnutritio n, severe hypoalbumin emia, sarcopenia, chronic neuromuscul ar disease, amputations , severe heart failure or liver disease) and in patients with increased creatinine generation due to increased muscle mass (e.g., muscle builders, anabolic steroids) or increased dietary intake. As drug clearance is proportiona l to total GFR and not GFR indexed to body surface area (BSA), in individuals with a BSA substantial ly different than 1.73 m2, drug dosing should be based on the reported eGFR value de-indexed from BSA by multiplying by the individual' s BSA and dividing by 1.73. CKD is diagnosed based on abnormaliti es of kidney structure or function, present for >3 months, with implication s for health and disease. CKD is classified and staged based on cause, eGFR and albuminuria (quantified as urine albumin to creatinine ratio). An eGFR >60 mL/min/1.73 m2 in the absence of increased urine albumin excretion or structural abnormaliti es does not represent CKD. eGFR CKD Interpretat ion (mL/min/1.7 3 m2) stage >=90 G1 Normal 60-89 G2 Mild decrease 45-59 G3A Mild to moderate decrease 30-44 G3B Moderate to severe decrease 15-29 G4 Severe decrease <15 G5 Kidney failure Vitamin B12 test may not yield results when protein level of sample is too elevated. Ordering Provider: RICCO KWAN Report Released Date/Time: May 25, 2023 11:56 AM Reporting Lab: [facility] [address] [phone] Performing Lab: [facility] [address] [address] [facility] LIPID PROFILE CHOLESTEROL IN LDL [MASS/VOLUM E] IN SERUM OR PLASMA BY DIRECT ASSAY 79 mg/dL 0 - 100 05/24 Specimen Type: PLASMA Comment: Estimated Glomerular Filtration Rate (eGFR) calculated using the 2020 Chronic Kidney Disease-Epi demiology (CKD-EPI) Collaborati on creatinine equation; units of measure are mL/min/1.73 m2. Results are only valid for adults (>=18 years) whose serum creatinine is in a steady state. eGFR calculation s are not valid for patients with acute kidney injury and for patients on dialysis. Creatinine- based estimates of kidney function may also be inaccurate in patients with reduced creatinine generation due to decreased muscle mass (e.g., malnutritio n, severe hypoalbumin emia, sarcopenia, chronic neuromuscul ar disease, amputations , severe heart failure or liver disease) and in patients with increased creatinine generation due to increased muscle mass (e.g., muscle builders, anabolic steroids) or increased dietary intake. As drug clearance is proportiona l to total GFR and not GFR indexed to body surface area (BSA), in individuals with a BSA substantial ly different than 1.73 m2, drug dosing should be based on the reported eGFR value de-indexed from BSA by multiplying by the individual' s BSA and dividing by 1.73. CKD is diagnosed based on abnormaliti es of kidney structure or function, present for >3 months, with implication s for health and disease. CKD is classified and staged based on cause, eGFR and albuminuria (quantified as urine albumin to creatinine ratio). An eGFR >60 mL/min/1.73 m2 in the absence of increased urine albumin excretion or structural abnormaliti es does not represent CKD. eGFR CKD Interpretat ion (mL/min/1.7 3 m2) stage >=90 G1 Normal 60-89 G2 Mild decrease 45-59 G3A Mild to moderate decrease 30-44 G3B Moderate to severe decrease 15-29 G4 Severe decrease <15 G5 Kidney failure Vitamin B12 test may not yield results when protein level of sample is too elevated. Ordering Provider: RICCO KWAN Report Released Date/Time: May 25, 2023 11:56 AM Reporting Lab: TREVIN SOLIMAN [address] [address] Performing Lab: TREVIN SOLIMAN [address] [address] [facility] Vital Signs Combined list of inpatient and outpatient Vital Signs from Department of Defense and Veterans Affairs, ranging from 12 months to all on record, depending upon the facility. Vital Sign Value Date Comments Source SYSTOLIC BLOOD PRESSURE 137 06/01/2024 08:14:32 [facility] DIASTOLIC BLOOD PRESSURE 79 06/01/2024 08:14:32 [facility] PULSE OXIMETRY 97 06/01/2024 08:14:32 [facility] WEIGHT 164 06/01/2024 08:14:32 [facility] BMI 25 kg/m2 06/01/2024 08:14:32 [facility] [facility] PAIN 8 06/01/2024 08:14:32 [place] [facility] HEIGHT 68 06/01/2024 08:14:32 [place] [facility] TEMPERATURE 98.1 06/01/2024 08:14:32 [facility] PULSE 79 06/01/2024 08:14:32 [facility] UMA[facility] RESPIRATION 18 06/01/2024 08:14:32 [facility] SYSTOLIC BLOOD PRESSURE 131 05/11/2024 08:48:02 [facility] DIASTOLIC BLOOD PRESSURE 65 05/11/2024 08:48:02 [facility] WEIGHT 164.2 05/11/2024 08:48:02 [facility] BMI 24 kg/m2 05/11/2024 08:48:02 [facility] PAIN 8 05/11/2024 08:48:02 [facility] TEMPERATURE 97.8 05/11/2024 08:48:02 [facility]RIE MCCORD [facility] PULSE 76 05/11/2024 08:48:02 [facility] Encounters Combined list of: 1) Encounters from Department of Veterans Affairs facilities going backup to the last 18 months, not all [place] inpatient encounters are included; 2) Encounters from the Department of Defense facilities going backup to 280 months. 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 CAGLE SETR 01/27 [place] [facility] SELF-MGMT EDUC & TRAIN 1 [place] [id number] Diagnos is: ICD-10- CM M54.9 Dorsalg ia, unspeci Yonny Gary 02/01 [place] HC PRO PHONE CALL 5-10 MIN [id number] Diagnos is: ICD-10- CM 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 Other specifi ed mitochondrial disorders counselor MARKEL Henson Katiuska 02/04 [place] [facility] THERAPEUTI C EXERCISES [id number] Diagnos is: ICD-10- CM M54.9 Dorsalg ia, unspeci Yonny Gary 02/17 [place] THERAPEUTI C EXERCISES [id number] Diagnos is: ICD-10- CM M54.9 Dorsalg ia, unspeci Yonny Gary 03/09 [place] THERAPEUTI C EXERCISES [id number] Diagnos is: ICD-10- CM M54.9 Dorsalg ia, unspeci Yonny Gary 03/23 [place] OFFICE O/P [place] 60 MIN [id number] Diagnos is: ICD-10- CM 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, 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 SHAHBAZ MCCABE 03/25 [place] Outpatient Encounter [id number] 04/14 [place] [facility] Outpatient Encounter [id number] 05/09 [place] OFFICE O/P EST MOD 30 MIN [id number] Diagnos is: ICD-10- CM M47.896 Other spondyl osis, lumbar region ESTEBAN KWAN K 05/24 [place] [facility] Outpatient Encounter [id number] 05/24 [place] Outpatient Encounter [id number] 05/30 [place] TYMPANOMET RY & REFLEX THRESH [id number] Diagnos is: ICD-10- CM H93.13 Tinnitu s, bilely al DIEGO,DARRELL AN M 06/17 [place] [facility] COMPRE OPH EXAM NEW PT 1/> [id number] Diagnos is: ICD-10- CM H25.13 Age-rel ated nuclear catarac t, david al JEAN, BREYNE L 06/17 [place] [facility] Outpatient Encounter [id number] LEYLA PINTO A 07/25 [place] [facility] HC PRO PHONE CALL 5-10 MIN [id number] Diagnos is: ICD-10- CM 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, 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 GARLINGHOU SE,TR L 07/25 [place] [facility] PT EVAL MOD COMPLEX 30 MIN [id number] Diagnos is: ICD-10- CM M25.562 Pain in left knee CHRISTOFER FINNEY R 07/27 [place] Outpatient Encounter [id number] 01/19 [place] [facility] Outpatient Encounter [id number] 03/10 [place] [facility] Outpatient Encounter [id number] 05/11 [place] [facility] Outpatient Encounter [id number] 05/11 [place] OFF[facility] O/P EST MOD 30 MIN [id number] Diagnos is: ICD-10- CM M47.896 Other spondyl osis, lumbar region KWAN,NAN CY K 06/01 [place] [facility] Social History Combined list of available smoking, tobacco, and other social history from Department of Defense and Veterans Affairs facilities. Social History Type Response Date Comment Sour e Tobacco smoking status NHIS [place]-TO[place]ACCO NEVER USED CIGARETTES 06/01/2024 [facility] History of tobacco use [place]TO[place] USE EVERY DAY CIGARS/PIPES 06/01/2024 [facility] of [facility] 05/25/2023 [facility] History of tobacco use [place] US[place] EVERY DAY 06/15/2022 [facility] History of [facility] WI 30 MIN WAKEUP 07/14/2021 [facility] History of tobacco use [place]-TO[place]ACCO USER EVERY DAY 08/13/2020 [facility] of [facility] 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
--- OUTSIDE RECORDS SUMMARY | 2024-07-24 22:13 | XMS_ITS | Encounter Summary ---
Author Name [facility] [place] Organization [facility] [place] Address [address] [place] [address] Care Team Providers Care Structural Biologist Name Role Phone KWANMARIBELL MORRISSEY Primary Care [...] BLUECARD PREFERRED PROVIDER ORGANIZAT ION (PPO) RONEY JUAREZF AC Jun 29, 2011 [id number] [phone] WINTER DEVINE PATIENT [employer] ([id number]) PRESCRIPT ION TMAA Jun 29, 2011 TMAA [id number] [phone] WINTER DEVINE PATIENT Selected Encounter This section includes the information on record at [place] for the Encounter. Date/Time Encounter Type Encounter Description Reason Pro vider Source May 11, 2024 09:00 AM Outpatient Encounter PRIMARY CARE/MEDICINE IHE Encounter Template Text not used by [facility] Plan of Treatment: Future Appointments (+ 6 [...] 20 appointments. The data comes from all [place] treatment facilities. Appointment Date/Time Appointment Type Appointme nt Facility Name Jun 01, 2024 08:00 AM AMBULATORY - NONE [facility] Jun 09, 2024 08:15 AM AMBULATORY - NONE [facility] Lab Results: +/- 30 days of the encounter This section includes the Chemistry and Hematology Lab Results on record with [place] for the patient. Radiology Reports and Pathology Reports are provided separately, in subsequent sections. Lab Results This section contains the Chemistry/Hematology Results that were resulted 30 days before or 30 daysafter the date of the Encounter. Date/Time Source Result Type Result - Unit Interpretation Reference Range Specimen Type Comment Jun 01, 2024 08:55 AM [facility] WN LIPID PROFILE PLASMA Specimen [...] Jun 01, 2024 08:41 AM Reporting Lab: [address] [address] Performing Lab: [place] [id number] CHOLESTEROL 134 mg/dL 0-199 TRIGLYCERIDE 95 mg/dL 0-149 HDL CHOLESTEROL 50 mg/dL 40-69 DIRECT LDL CHOL. 71 mg/dL 0-100 Jun 01, 2024 08:55 AM [facility] CBC/PLT BLOOD Specimen Type: BLOOD No comment entered. Ordering Provider: MARIBELL KWAN Report Released Date/Time: Jun 01, 2024 08:41 AM Reporting Lab: [address] [address] Performing Lab: [address] [address] WBC 7.3 10*3/uL 5.0-10.0 RBC 5.13 10*6/uL 4.6-6.2 HGB 16.0 g/dL 14.0-18.0 HCT 47.4 42.0-52.0 MCV 92.4 fL 80.0-94.0 MCH 31.2 pg H 27.0-31.0 MCHC 33.8 g/dL 32.0-36.0 PLT 267 10*3/uL 150-450 MPV 9.1 fL 9.0-13.1 RDW 13.4 11.0-16.0 NRBC 0.0 0.0-0.0 Jun 01, 2024 08:55 AM [facility] GLYCOHEMOGLOBIN BLOOD Specimen Type: BLOOD Comment: [place] guidelines for A1c interpretation: Glycemic control targets are based on Shared Decision Making between clinicians and patients. Criteria used to establish an A1c target recommendation can be found at https://www.[place].gov/qualityandpatientsafety/ and include the use of result accuracy [...] 8.73 and 9.27. Ref: https://ngsp.org/CAPdata.asp. The in-house Levels Beyond-Egodeus D-100 analyzer has a historical CV <= 2%. Contact the laboratory for further performance characteristics of this assay. Ordering Provider: MARIBELL KWAN Report Released Date/Time: Jun 01, 2024 08:41 AM Reporting Lab: [address] [address] Performing Lab: [address] [address] GLYCOHEMOGLOBIN 5.3 4.4-5.6 Jun 01, 2024 08:55 AM [facility] PANEL 5 PLASMA Specimen Type: PLASM [...] Jun 01, 2024 08:41 AM Reporting Lab: [address] [address] Performing Lab: [address] [address] CREATININE 0.96 mg/dL 0.72-1.25 UREA NITROGEN 17 [...] (CKD-EPI) >90 Jun 01, 2024 08:55 AM [facility] PLASMA Specimen Type: PLASM A Comment: Estimated [...] Jun 01, 2024 08:41 AM Reporting Lab: [address] [address] Performing Lab: [address] [address] TSH 1.2776 m[IU]/mL 0.3500-4.9400 Jun 01, 2024 08:55 AM [facility] PSA S NANDO Specimen Type: SERUM No comment entered. Ordering Provider: MARIBELL KWAN Report Released Date/Time: Jun 01, 2024 08:41 AM Reporting Lab: [address] [address] Performing Lab: [address] [address] PSA 0.471 ng/mL 0-3.999 Jun 01, 2024 08:55 AM [facility] B12 VITAMIN PLASMA Specimen Type: PLASM [...] Jun 01, 2024 08:41 AM Reporting Lab: [address] [address] Performing Lab: [address] [address] B12 VITAMIN >2000 pg/mL H 213-816 Jun 01, 2024 08:55 AM [facility] 25-OH VITAMIN D SERUM Specime n [...] Jun 01, 2024 08:41 AM Reporting Lab: [address] [address] Performing Lab: [address] [address] 25-OH VITAMIN D 39.4 ng/mL 20.0-50.0 Vital Signs: All taken on the encounter date This section contains inpatient and outpatient Vital Signs collected on the date of the Encounter. Date/Time Temperature Pulse Blood Pressure Respiratory Rate SP02 Pain Height Weight Body Mass Index Source May 11, 2024 08:48 AM 97.8 76 131/65 8 164.2 24 [place] [facility] Social History: Smoking Status (Most current) and Tobacco Use (All prior to encounter date) This section includes the most current, and the historical, smoking and tobacco- related health factors from the [place] facility where the Encounter took place. Current Smoking Status This section includes the most current smoking, or tobacco-related health factor, from the [place] facility where the Encounter took place. Date/Time Current Smoking Status Comment Sandra leung May 25, 2023 11:30 AM [place]-TOBACCO USER EVERY DAY [facility] Tobacco Use History This section includes a history of the smoking, or tobacco-related health factors, that were collected on or before the date of the Encounter. The data comes from the [place] facility where the Encounter took place. Date/Time Smoking Status/Tobacco Use Comment F acility May 25, 2023 11:30 AM VA-TOBACCO USE 30 YEARS OR MORE [facility] May 25, 2023 11:30 AM VA-TOBACCO USE ADVICE [facility] May 25, 2023 11:30 AM VA-TOBACCO USE 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 [facility] May 25, 2023 11:30 AM VA-TOBACCO USE MED NO [facility] May 25, 2023 11:30 AM VA-TOBACCO USER EVERY DAY [facility] Jun 15, 2022 08:30 AM VA-TOBACCO DOESNT USE WI 30 MIN WAKEUP [facility] Jun 15, 2022 08:30 AM VA-TOBACCO USE 30 YEARS OR MORE [facility] Jun 15, 2022 08:30 AM VA-TOBACCO USE ADVICE [facility] Jun 15, 2022 08:30 AM VA-TOBACCO USE 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 [facility] Jun 15, 2022 08:30 AM VA-TOBACCO USE MED NO [facility] Jun 15, 2022 08:30 AM VA-TOBACCO USER EVERY DAY [facility] July 14, 2021 11:00 AM VA-TOBACCO DOESNT USE WI 30 MIN WAKEUP [facility] July 14, 2021 11:00 AM VA-TOBACCO USE 30 YEARS OR MORE [facility] July 14, 2021 11:00 AM VA-TOBACCO USE ADVICE [facility] July 14, 2021 11:00 AM VA-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 USE 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 [facility] July 14, 2021 11:00 AM VA-TOBACCO USE MED NO [facility] July 14, 2021 11:00 AM VA-TOBACCO USER EVERY DAY [facility] Aug 13, 2020 10:00 AM VA-TOBACCO DOESNT USE WI 30 MIN WAKEUP [facility] Aug 13, 2020 10:00 AM VA-TOBACCO USE 30 YEARS OR MORE [facility] Aug 13, 2020 10:00 AM VA-TOBACCO USE ADVICE [facility] Aug 13, 2020 10:00 AM VA-TOBACCO USE 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 [facility] Aug 13, 2020 10:00 AM VA-TOBACCO USE MED NO [facility] Aug 13, 2020 10:00 AM VA-TOBACCO USER EVERY DAY [facility] Sep 06, 2019 10:19 AM VA-TOBACCO DOESNT USE WI 30 MIN WAKEUP [facility] Sep 06, 2019 10:19 AM VA-TOBACCO USE 30 YEARS OR MORE [facility] Sep 06, 2019 10:19 AM VA-TOBACCO USE ADVICE [facility] Sep 06, 2019 10:19 AM VA-TOBACCO USE 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 [facility] Sep 06, 2019 10:19 AM VA-TOBACCO USE MED NO [facility] Sep 06, 2019 10:19 AM VA-TOBACCO USER EVERY DAY [facility] Sep 12, 2018 09:24 AM VA-TOBACCO USE 30 YEARS OR MORE [facility] Sep 12, 2018 09:24 AM VA-TOBACCO USE ADVICE [facility] Sep 12, 2018 09:24 AM VA-TOBACCO USE 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 [facility] Sep 12, 2018 09:24 AM VA-TOBACCO USE MED NO [facility] Sep 12, 2018 09:24 AM VA-TOBACCO USE WI 30 MIN OF WAKEUP [facility] Sep 12, 2018 09:24 AM VA-TOBACCO USER EVERY DAY [facility] Oct 21, 2017 12:23 PM V9 CURRENT TOBACCO USER [facility] Oct 21, 2017 12:23 PM V9 TOBACCO OFFERED [facility] Oct 21, 2017 12:23 PM V9 TOBACCO USE-DECLINED MEDS [facility] Oct 26, 2016 02:17 PM V9 CURRENT TOBACCO USER [facility] Oct 26, 2016 02:17 PM V9 TOBACCO OFFERED [facility] Oct 26, 2016 02:17 PM V9 TOBACCO USE-DECLINED MEDS [facility] Feb 06, 2015 08:05 AM V9 CURRENT TOBACCO USER [facility] Feb 06, 2015 08:05 AM V9 TOBACCO OFFERED [facility] Feb 06, 2015 08:05 AM V9 TOBACCO USE-DECLINED MEDS [facility] Feb 19, 2014 09:33 AM V9 QUIT TOBACCO >1 2 MO & <7 YRS AGO [facility] Radiology Reports: +/- 30 days of [...] the Encounter. The data comes from all [place] treatment facilities. Date/Time Radiology Report Provider Source Jun 09, 2024 07:[address] CHEST W/O CONTR AST: GELY DEVINE [id number] -[id number] M Exm Date: JUN 09, 2024@07:56 Req Phys: MARIBELL KWAN Pat Loc: [facility] 1-2 (Req'g Lo Img Loc: CT SCAN Service: [place] [address] (Case [id number] COMPLETE)CT CHEST W/O CONTRAST (CT Detailed) CPT:50847 Reason for Study: SEE CLINICAL HISTORY Clinical History: REASON FOR SEND OUT: ATTENDING PHYSICIAN NAME: dyspnea HISTORY/REASON FOR EXAM: dyspnea in tobacco user Report Status: Verified Date Reported: JUN 12, 2024 Date Verified: JUN 12, 2024 Expanded Duty Dental Assistant E-Sig: Report: Scarring in the right lung [...] Staff: JOSE WALSH, Staff Radiologist Verified by customer consultant for JOSE WALSH [facility] Encounter Notes: All associated encounter notes This section contains the clinical notes associated to the Encounter. Date/Time Encounter Note(s) Provider Source May 11, 2024 08:42 AM PRIMARY CARE NURSI NG NOTE: LOCAL TITLE: Health Tech/accounts payables clerk Note STANDARD TITLE: PRIMARY CARE NURSING NOTE DATE OF NOTE: MAY 11, 2024@08:42 ENTRY DATE: MAY 11, 2024@08:42:25 AUTHOR: ISELA CALABRESE COSIGNER: URGENCY: STATUS: COMPLETED The patient was given a list of his current medications, instructed to review and discuss any changes or problems with their provider. Patient advised to carry a list of current medications and any allergies with them in the event of emergency situations. Yes - /Caregiver verbalized understanding of topics discussed and education provided Alcohol Use Screen (AUDIT-C): Alcohol Screen: SCREEN [...] one occasion in the past year? Never COVID-19 Immunization: Refused Moderna Monovalent COVID-19 vaccine Immunization: COVID-19 (MODERNA), MRNA, LNP-S, PF, 50 MCG/0.5 ML (AGES 12+ YEARS) Refusal Reason: PATIENT DECISION Patient refuses all immunization(s) in the COVID-19 group Date Documented: 05/11/24 08:43 Depression Screening: Perform PHQ-2 A PHQ-2 screen was performed. The score was 2 which is a negative screen for depression. Over the past two weeks, how often have you been bothered by the following problems? 1. Little interest or pleasure in doing things Several days 2. Feeling down, depressed, or hopeless Several days Homelessness/Food Insecurity Screen: In the past 2 [...] have money to get more. Never true Suicide Screen: C-SSRS Screening [place] Suicide Severity Rating Scale (C-SSRS) screener 1. [...] required due to responses to other questions. Sexual Orientation: The patient thinks of their sexual orientation as: Straight or Heterosexual Learning Readiness Assessment: Preferred language for discussing health care Azeri NEW ASSESSMENT LEARNING BARRIERS Visual Barrier Comment: reading glasses READING LIMITATIONS No reading limitations PREFERRED METHODS FOR LEARNING Written/Printed Material Verbal Demonstration (Audio/Visual) Computer INTERESTED IN LEARNING (MOTIVATED) Yes, interested in learning what? PERSON BEING EDUCATED TODAY Patient Education was provided on the following topics RESPONSE Verbalizes Successfully Tobacco Use Screening: The patient smokes cigarettes every day. The patient formerly used other types of tobacco. Comment: chewing Patient was advised to stop smoking and/or [...] prescription for tobacco cessation medications. Tdap Immunization: The patient declines to receive the recommended dose of Tdap vaccine. Immunization: TDAP Refusal Reason: PATIENT DECISION Patient refuses all immunization(s) in the TDAP group Date Documented: 05/11/24 08:47 PTSD Screening: PC-PTSD-5 A PTSD screening test (PC-PTSD-5) was negative (score=0). IN THE PAST MONTH, have you ever had any experience that was so frightening, horrible or traumatic. For example: A serious accident or fire a physical or sexual assault or abuse An earthquake or flood A war Seeing someone be killed or seriously injured Having a loved one through homicide or suicide 1. Have you ever experienced this kind of event? NO 2. Had nightmares about the event(s) or thought about the event(s) when you did not want to? Response not required due to responses to other questions. 3. Tried hard not to think about the event(s) or went out of your way to avoid situations that reminded you of the event(s)? Response not required due to responses to other questions. 4. Been constantly on guard, watchful, or easily startled? Response not required due to responses to other questions. 5. Lawrence numb or detached from people, activities, or your surroundings? Response not required due to responses to other questions. 6. [place] guilty or unable to stop blaming yourself or others for the event(s) or any problems the event(s) may have caused? Response not required due to responses to other questions. /michell/ ISELA CALABRESE LPN STAFF PIANO INSTRUCTOR Signed: 05/11/2024 08:47 ISELA CALABRESE [facility]
--- OUTSIDE RECORDS SUMMARY | 2024-07-24 22:13 | XMS_ITS | Encounter Summary ---
Author Name [facility] Address [address] [place] [address] Care Team Providers Care Assistant Sales Manager Name Role Phone MARIBELL KWAN Primary Care Provider Unavailabl e Insurance [...] BLUECARD PREFERRED PROVIDER ORGANIZAT ION (PPO) RONEY A MOTOR MANUF AC Jun 29, 2011 [id number] [employer] PATIENT [employer] ([id number]) PRESCRIPT ION TMAA Jun 29, 2011 TMAA [id number] [employer]INTER [employer] PATIENT Selected Encounter This section includes the information on record at [place] for the Encounter. Date/Time Encounter Type Encounter Description Reason Provider Source July 28, 2023 02:30 PM PT EVAL MOD COMPLEX 30 MIN PHYSICAL THERAPY ICD-10-CM M25.562 Pain in left knee MARKO FINNEY Encounter Template Text not used by [facility] Assessments - Encounter Diagnoses This section includes the primary and secondary diagnoses documented for the Encounter. Date/Time Primary/Secondary Diagnosis Diagnosis Name Provider Source July 28, 2023 03:08 PM PRIMARY Pain in left knee MARKO FINNEY-D [facility] Encounter Notes: All associated encounter notes This section contains the clinical notes associated to the Encounter. Date/Time Encounter Note(s) Provider Source July 28, 2023 03:21 PM PHYSICAL MEDICINE REHAB NOTE: LOCAL TITLE: LOWER EXTREMITY FUNCTIONAL SCALE STANDARD TITLE: PHYSICAL MEDICINE REHAB NOTE DATE OF NOTE: JULY 28, 2023@15:21 ENTRY DATE: JULY 28, 2023@15:21:46 AUTHOR: MARKO FINNEY EXP COSIGNER: URGENCY: STATUS: COMPLETED 1. Any of your usual work, housework, or school activities: 2 - Moderate difficulty 2. Your usual hobbies, recreational, or sporting activites: 2 - Moderate difficulty 3. Getting into or out of the bath: 4 - No difficutly 4. Walking between rooms: 3 - A little bit of difficutly 5. Putting on your shoes or socks: 3 - A little bit of difficutly 6. Squattin - No difficutly 7. Lifting an object, like a bag of groceries from the floor: 3 - A little bit of difficutly 8. Performing light activities around your home: 3 - A little bit of difficutly 9. Performing heavy activities around your home: 2 - Moderate difficulty 10. Getting into or out of a car: 4 - No difficutly 11. Walking 2 blocks: 1 - Quite a bit of difficulty 12. Walking a mile: 0 - Extreme difficulty or unable to perform activity 13. Going up or down 10 stairs (about 1 flight of stairs): 1 - Quite a bit of difficulty 14. Standing for 1 hour: 0 - Extreme difficulty or unable to perform activity 15. Sitting for 1 hour: 0 - Extreme difficulty or unable to perform activity 16. Running on even ground: 0 - Extreme difficulty or unable to perform activity 17. Running on uneven ground: 0 - Extreme difficulty or unable to perform activity 18. Making sharp turns while running fast: 0 - Extreme difficulty or unable to perform activity 19. Hoppin - Extreme difficulty or unable to perform activity 20. Rolling over in bed: 3 - A little bit of difficutly TOTAL SCORE: LEFS INITIAL SCORE 35 /es/ MARKO R HANKS PHYSICAL THERAPIST Signed: 07/28/2023 15:22 MARKO FINNEY-CDD [facility] July 28, 2023 02:24 PM PHYSICAL THERAPY C ONSULT: LOCAL TITLE: PHYSICAL THERAPY INITIAL & PLAN OF CARE CONSULT RES STANDARD TITLE: PHYSICAL THERAPY CONSULT DATE OF NOTE: JULY 28, 2023@14:24 ENTRY DATE: JULY 28, 2023@14:26:52 AUTHOR: MARKO FINNEY EXP COSIGNER: URGENCY: STATUS: COMPLETED Order Information To Service: PT OUTPATIENT CDD From Service: OPTOMETRY/RESIDENT-2 Requesting Provider: MARIBELL KWAN Service is to be rendered on an OUTPATIENT basis Place: Corrugator Machine Operator's choice Urgency: Routine Clinically Ind. Date: July 26, 2023 DST ID: Orderable Item: PT OUTPATIENT CDD Consult: Consult Request Provisional Diagnosis: Pain in left Knee(ICD-10-CM M25.562) Reason For Request: #RCT# Special Comments: L knee pain Subjective: Patient is a 57 year old male with chronic LE pain. Patient with extensive medical problems for low back having 7 thoracic and lumbar vertebrae fused. Patient reports pain in anterior left leg began about 2 months ago with only possible difference in activity was driving for 3 hours. Patient biggest complaint is the pain especially at night that it wakes him up. Patient is a side sleeper due to his back and he had an hour glass pillow that he keeps between his legs. Pain also comes on with driving for about 30 minutes and takes hours to reduce. EMPLOYMENT: retired; [employer] HOME ENVIRONMENT: Single story Live with: External Support: Stairs to enter: 2 Assistive devices owned: TENs unit Date of injury: 2 months Mechanism of injury:Unknown Location of pain: Anterior left LE with seeming to be muscle and not Tibia Pain rating (0-10 scale):Current: 4/10; Worse: 10/10; Best: 0/10 Pain description: Burning Pain is intermittent Activities that increase pain: Sleeping and driving for 30+ min, standing for 30+ min Activities that decrease pain: Biofreeze, volatin gel OBJECTIVE: OBSERVATION/SKIN INTEGRITY POSTURE: Increased thoracic kyphosis and lumbar lordosis AROM: Full BLE with some tightness to bilateral hamstrings MMTS: WFL BLE PALPATION: noted active trigger points with pain increasing and symptom provocation during deep peroneal nerve compression SPECIAL TESTS: Tuning fork test: 1. Tibial tuberosity - Negative bilateral 2. Mid shaft tibia - Negative bilateral 3. Medial Malleolus - Negative bilateral GAIT: Very poor trunk posture due to chornic and severe spinal issues. ASSESSMENT: Patient was referred for physical therapy with a diagnosis of left knee pain. Patient actual complaint was left lower leg anterior compartment pain. Objective findings from physical therapy evaluation consistent with deep peroneal nerve entrapment. Ordering patient Sciatica Pain relief strap; issued patient theracane with patient having a TENs unit already. Patient instructed to apply constant pressure, use heat and his TENs unit PRN. Problem list: GOALS: TBA if patient returns for formal treatment. Plan: Patient to perform self care using theracane, sciatica strap, TENs unit and MHP. Patient to call and schedule a follow up for modalities, manual therapy, therapeutic exercises, therapeutic activities and TDN if self care not effective in resolving new symptoms. Today's Treatment:30 (minutes) Evaluation:Uday /michell/ MARKO FINNEY PHYSICAL THERAPIST Signed: 07/28/2023 15:08 MARKO FINNEY-PRANEETH [facility]
[2024-07-24 22:15] VITALS: BP 155/88; PULSE 62; RESP 18; TEMP 36.8; O2SAT 99; BMI 23.6
[2024-07-24 22:20] VITALS: BMI 23.6
--- NOTE | 2024-07-24 22:21 | XR_ITS ---
PROCEDURE INFORMATION: Exam: XR Right Forearm Exam date and time: 07/24/2024 10:43 PM Age: 58 years old Clinical indication: Pain; Lower or forearm; Right; Additional info: Trauma TECHNIQUE: Imaging protocol: Radiologic exam of the right forearm. Views: 2 views. COMPARISON: No relevant prior studies available. FINDINGS: Bones/joints: No acute fracture or malalignment. Soft tissues: Mild lateral distal forearm soft tissue swelling. IMPRESSION: 1. No acute osseous findings. 2. Mild lateral distal forearm soft tissue swelling.
--- NOTE | 2024-07-24 23:58 | ED_ITS ---
Discharge Plan Disposition Patient Disposition: Home, Self-Care Condition: Good Prescriptions Prescriptions: No Action baclofen 20 mg tablet 20 mg PO TIDP PRN (Reason: Pain) Patient Comments: TAKE 1 TABLET BY MOUTH 3 TIMES A DAY NEEDED FOR MUSCLE SPASM omeprazole 20 mg capsule,delayed release(DR/EC) 20 mg PO DAILY Patient Comments: TAKE 1 CAPSULE BY MOUTH EVERY OTHER DAY oxycodone-acetaminophen 7.5-325 mg tablet 1 tab PO Q6HP PRN (Reason: Pain) Patient Comments: TAKE 1 TABLET BY MOUTH EVERY 6 HOURS NEEDED FOR PAIN diclofenac sodium [Voltaren] 75 mg Tablet,Delayed Release (Dr/Ec) 75 mg PO BID Referrals Follow up/Referrals: Aleksandr Kruger MD [Primary Care Provider] - See instructions Activity Restrictions/Add. Instructions Additional Instructions/Restrictions: You were evaluated in the ER and are believed to be appropriate for discharge at this time. Take Tylenol, ibuprofen if needed for pain. Do not exceed the recommended dose on the bottle. Drink water and eat a small snack each time you take these medications to avoid side effects. Make an appointment with your primary care doctor for reevaluation in a few days. Return to the ER with any new, worsening, or otherwise concerning symptoms Clinical Impressions Clinical Impression: Arm pain, right Stand Alone Forms Stand Alone Forms: Work/School Release Print Language Print Language: Czech Discharge ED Provider: Felton Ryder Adult HPI General Chief complaint: Extremity Injury, Upper Stated complaint: AO 07/24/24 18:00 Possible Broke R Forearm Time Seen by Provider: 07/24/24 23:00 Mode of Arrival: Ambulatory Source of Information: Patient Description of Symptoms (Recalled from ER Triage Doc. by RN): Pt states approx 1800 he was using hoist to lift air compressor into his truck. Pt reports the handle to the hoist began to free spin and hit him in the right forearm. Pt has swelling noted to forearm. Pt rates pain 7/10 History of Present Illness HPI narrative: 58-year-old male presents to the ER with complaints of right forearm pain. Patient states around 6 PM he was using a hoist at home when it began to free spin and the handle of the hoist came around and struck him in the right forearm. He has a specific area of pain and swelling approximately 1 to 2 inches proximal to the right wrist but no numbness, tingling, or weakness. He came to the ER to be sure there was not a break. Patient has no other complaints or concerns. No other injuries. Patient does not take any blood thinners. Related Data Home Medications ?Medication ?Instructions ?Recorded ?Confirmed baclofen 20 mg tablet 20 mg PO TIDP PRN Pain 01/26/23 01/26/23 diclofenac sodium 75 mg 75 mg PO BID 01/26/23 01/26/23 tablet,delayed release omeprazole 20 mg capsule,delayed 20 mg PO DAILY GERD 01/26/23 01/26/23 release oxycodone-acetaminophen 7.5 mg-325 1 tab PO Q6HP PRN Pain 01/26/23 01/26/23 mg tablet Allergies Allergy/AdvReac Type Severity Reaction Status Date / Time No Known Allergies Allergy Verified 04/29/22 12:40 [facility] Disclaimer: The information contained in this section may have been updated after the patient was seen, as this information can be updated by other users. Medical History (Updated 07/24/24 @ 23:56 by Felton Ryder MD) History of gastroesophageal reflux (GERD) Surgical History (Updated 01/26/23 @ 09:24 by Dyana Dotson RN) History of lumbar fusion Social History (Updated 04/29/22 @ 12:59 by Neeru Dudley APRN) Smoking Status: Current every day smoker alcohol intake: never current occupational status: employed Travel in the last 8 weeks?: None Have you lived/traveled outside [place] in past 30 days?: No Contact w/someone who lives/traveled outside US past 30 days?: No Exposure to someone with infectious disease in past 14 days?: No Do you have a fever (greater than 100.4 F or 38 C)?: No Have you tested positive for COVID-19?: No Exposed to someone with COVID-19 in past 14 days?: No Do you have a sore throat?: No Do you have a cough?: No Do you have any weakness?: No Do you have any diarrhea?: No Are you experiencing any unusual bleeding?: No Do you have any muscle aches/pain?: No Do you have any abdominal pain?: No Are you experiencing loss of taste or smell?: No ROS Obtained: Yes Systems reviewed as appropriate & no additional complaints except as documented Per HPI Physical Exam General General appearance: alert and in no apparent distress Head Head exam: atraumatic and normocephalic Eye Eye exam: Present PERRL and EOMI ENT ENT exam: Present mucous membranes moist Neck Neck exam: Present normal inspection and full ROM Chest Chest inspection: Present symmetric chest wall rise Respiratory Respiratory exam: Absent respiratory distress or stridor Cardiovascular Cardiovascular exam: Present regular rate and normal rhythm Extremities Exam Extremities exam: Present full ROM Expanded Upper Extremity Exam Right: L/R Arms Top View: 2 1. Approximately 4 cm diameter area of soft swelling with ecchymosis, likely hematoma with no pulsatility, no underlying deformity or crepitus, mildly tender, neurovascularly intact distally Neurological Exam Neurological exam: Present alert and oriented X3; Absent motor sensory deficit Psychiatric Psychiatric exam: Present normal affect and normal mood Skin Skin exam: Present warm and dry Medical Decision Making Medical Records Medical records reviewed: Yes I reviewed the patient's medical records. Screening: Per USPSTF and CDC recommendations, given the prevalence of disease in our region, it is our hospital?s policy to screen for HIV and viral Hepatitis for all patients aged 18 and over and those with ongoing risk factors. Kana Inquiry Pt receiving controlled substance: No Vital Signs: 07/24/24 22:15 Temperature 98.2 F Temperature Source Oral Pulse Rate [Left] 62 Respiratory Rate 18 Blood Pressure [Right Arm] 155/88 H Blood Pressure Mean [Right Arm] 110 Blood Pressure Source [Right Arm] Automatic Cuff 02 Sat by Pulse Oximetry 99 Oxygen Delivery Method Room Air Orders (Tests/Meds): ORDERS Category Date Time Status Forearm XR right 2 views [XR forearm RT 2V] Stat Exams 07/24/24 22:21 Completed Medical Decision Narrative: In summary, 58-year-old male presents to the ER with right arm pain after being struck in the forearm by a hoist handle. On initial evaluation patient is hemodynamically stable, afebrile, GCS 15, patient has small area of soft swelling and tenderness approximately 2 inches proximal to the wrist on the right forearm overlying the radius. No underlying deformity or crepitus, neurovascularly intact distally. No other evidence of injury. Differential diagnosis includes but is not limited to fracture, dislocation, soft tissue injury, hematoma. X-rays were ordered and personally interpreted and do not demonstrate acute osseous injury, see radiology read for final interpretation. On reassessment patient continues to be stable and is appropriate for discharge at this time. He is comfortable with this plan. No other intervention is indicated. Patient was given instructions on symptomatic monitoring and management, follow up instructions, and return precautions for the emergency department. Patient indicated understanding and was discharged in stable condition. Critical Care Critical Care Time Critical Care Time: No
[2024-07-25 00:06] VITALS: BP 155/88; PULSE 62; RESP 18; TEMP 37; O2SAT 97
== END 2024-07-25 00:07 | disposition home or self-care (01) ==
PROVIDERS: Emergency Provider Emergency Medicine; PCP Family Medicine
DX: S59.911A Unspecified injury of right forearm, initial encounter (principal); M79.601 Pain in right arm; W22.8XXA Striking against or struck by other objects, initial encounter
CPT/HCPCS: 73090; 99283

== ENCOUNTER 2024-10-29 10:46 | Outpatient (CLI) | payer MEDICARE, SELFPAY ==
--- OUTSIDE RECORDS SUMMARY | 2024-10-29 05:10 | XMS_ITS | Continuity of Care Document ---
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 It does not include entries that were removed or entered in error. Problem Status Onset Date Problem Type Date of Resolution Comments Source Torn muscle Active 03/08/19 06 Condition Feb 19, 2014 Entered By: JOSHUA FERNANDEZ Comment: right biceps [facility] Low back pain Active 03/08/18 91 Condition Feb 19, 2014 Entered By: JOSHUA FERNANDEZ Comment: Has had three different fusions-last L3-L4 01/18/2014 [facility] Exposure to potentially hazardous substance ([facility] [id number]) Active Condition [facility] Gastroesophageal reflux disease Active Condition [facility] History of colonoscopy Active Condition Sep 16, 2018 Entered By: MARIBELL KWAN Comment: 02/25/16: mild diverticulosis; repeat in 10 years [facility] Insomnia Active Condition [facility] Knee pain Active Condition Feb 19 14 Entered By: JOSHUA FERNANDEZ Comment: arthroscopic surgery 1999 [facility] Simple obesity Active Condition Feb 052013 Entered By: JOSHUA FERNANDEZ Comment: Had gastric banding in 07/2012 [facility] Sleep apnea Active Condition Feb 19, 2014 Entered By: JOSHUA FERNANDEZ Comment: Had surgeries for deviated septum, jaw moved forward [facility] Tobacco use Active Condition [facility] Diagnosis: ICD-10-CM M47.896 Other spondylosis, lumbar region Active Diagnosis [facility] Diagnosis: ICD-10-CM M25.562 Pain in left knee Active Diagnosis [facility] Diagnosis: ICD-10-CM Z71.9 Counseling, unspecified Active Diagnosis JULIO CÉSAR [facility] Diagnosis: ICD-10-CM H25.13 Age-related nuclear cataract, bilateral Active Diagnosis SARANYA HARRISON [facility] Diagnosis: ICD-10-CM H93.13 Tinnitus, bilateral Active Diagnosis [facility] Medications Combined list of outpatient medications from Department of Defense and Veterans Affairs facilities.Medications provided include 1) outpatient medications from the last 15 months, and 2) patient-reported medications. Medication Details Route Status Patient Instructions Prescription Expires Prescription Number Last Dispense Date Ordering Provider Order Date Order Qty Source ASCORBIC ACID 500MG TAB TAKE ONE TABLET BY MOUTH DAILY ORAL ACTIVE KWAN,NA NCY 2019 [place] [facility] BACLOFEN 10MG TAB TAKE TWO TABLETS BY MOUTH THREE TIMES A DAY NEEDED FOR MUSCLE SPASM ORAL ACTIVE 06/02/2025 [id number] 5 KWAN,NA NCY K 2024 540 [place] [facility] BACLOFEN 10MG TAB TAKE TWO TABLETS BY MOUTH THREE TIMES A DAY NEEDED FOR MUSCLE SPASM ORAL DISCONT [facility] 05/25/2024 [id number] KWAN,NA NCY K 2023 540 [place] [facility] CALCIUM 500MG TAB TAKE ONE TABLET BY MOUTH DAILY ORAL ACTIVE KWAN,NA NCY 2020 [place] [facility] CHONDROITIN /GLUCOSAMIN E CAP/TAB TAKE 1 CAP/TAB BY MOUTH DAILY ORAL ACTIVE ST ERNESTO FERNANDEZ 2013 [place] [facility] CYANOCOBALA MIN 250MCG TAB TAKE ONE TABLET BY MOUTH DAILY ORAL ACTIVE KWAN,NA NCY 2019 [place] [facility] DICLOFENAC NA 75MG TAB,EC TAKE ONE TABLET BY MOUTH TWICE A DAY FOR PAIN OR INFLAMMA TION ORAL ACTIVE 06/02/2025 [id number] 5 KWAN,NA NCY K 2024 180 [place] [facility] DICLOFENAC NA 75MG TAB,EC TAKE ONE TABLET BY MOUTH TWICE A DAY FOR PAIN OR INFLAMMA TION ORAL DISCONT [facility] 05/25/2024 [id number] 5 KWAN,NA NCY K 2023 180 [place] [facility] DOCUSATE NA 250MG CAP TAKE 1 CAPSULE BY MOUTH DAILY ORAL ACTIVE KWAN,NA NCY 2020 [place] [facility] MELATONIN 3MG CAP/TAB TAKE 1 CAP(S)/T AB BY MOUTH AT BEDTIME ORAL ACTIVE KWAN,NA NCY 2019 [place] [facility] MINERALS/MU LTIVITAMINS CAP/TAB TAKE BY MOUTH DAILY ORAL ACTIVE REBECCA,ST ERNESTO 2013 [place] [facility] OMEPRAZOLE 20MG CAP,EC TAKE ONE CAPSULE BY MOUTH ONCE A DAY 30 MINUTES BEFORE A MEAL FOR HEARTBUR N TAKE ON AN EMPTY STOMACH ORAL ACTIVE 06/02/2025 [id number] 5 KWAN,NA NCY K 2024 90 [place] [facility] OMEPRAZOLE 20MG CAP,EC TAKE ONE CAPSULE BY MOUTH ONCE A DAY 30 MINUTES BEFORE A MEAL FOR [facility]ART[facility] N TAKE ON AN EMPTY STOMACH ORAL DISCONT INUED 05/25/2024 [id number] 4 KWAN,NA NCY K 2023 90 [place] [facility] OXYCODONE HCL 7.5MG/ACETA MINOPHEN 325MG TAB TAKE ONE TABLET BY MOUTH FOUR TIMES A DAY NEEDED ORAL ACTIVE KWAN,NA NCY 2020 [place] [facility] VALERIAN CAP/TAB TAKE 2 CAPS/TAB S BY MOUTH QD ORAL ACTIVE KWAN,NA NCY 2019 [place] [facility] Immunizations Combined list of available immunizations from the Department of Defense and Veterans Affairs facilities. Immunization Series Date Given Administered By Site Reaction Lot Number CVX Code Drug Landmen Status Comments Source TDAP 2024 MINAL BACA LEFT DELTO ID [id number] 115 complet ed [facility] [place], Discussed risks vs benefits with and advised him to stay in lobby for 30 min for obs. expressed understan ding. 0 ASE's noted. notified. [place] [facility] INFLUENZA, SPLIT VIRUS, TRIVALENT, PF 6 2023 140 complet ed HISTORICA L INFORMATI ON - FROM OTHER REGISTRY, [place] [facility] INFLU[facility], INJECTABLE, QUADRIVALENT, PRESERVATIVE FREE 5 2022 150 complet ed HISTORICA L INFORMATI ON - FROM OTHER REGISTRY, [place] [facility] PNEUMOCOCCAL CONJUGATE PCV20, POLYSACCHARID E [id number] CONJUGATE, ADJUVANT, PF 1 2022 216 complet ed HISTORICA L INFORMATI ON - FROM OTHER REGISTRY, [place] [facility] INFLUENZA, UNSPECIFIED FORMULATION 2021 88 complet ed HISTORICA L INFORMATI ON - FROM PATIENT'S RECALL, [place] [facility] PNEUMOCOCCAL CONJUGATE PCV20, POLYSACCHARID E [id number] CONJUGATE, ADJUVANT, PF 2021 216 complet ed [place] [facility] INFLUENZA, UNSPECIFIED FORMULATION 2020 88 complet ed [place] [facility] INFLUENZA, INJECTABLE, QUADRIVALENT, PRESERVATIVE FREE 4 2019 150 complet ed HISTORICA L INFORMATI ON - FROM OTHER REGISTRY, [place] [facility] INFLUENZA, UNSPECIFIED FORMULATION 2019 88 complet ed [place] [facility] INFLUENZA, SEASONAL, INJECTABLE 2018 141 complet ed [place] [facility] HEP A, ADULT 2 2018 52 complet ed HISTORICA L INFORMATI ON - FROM OTHER REGISTRY, [place] [facility] INFLUENZA, INJECTABLE, QUADRIVALENT, PRESERVATIVE FREE 3 2018 150 complet ed HISTORICA L INFORMATI ON - FROM OTHER REGISTRY, [place] [facility] HEP A, ADULT 1 2017 52 complet ed HISTORICA L INFORMATI ON - FROM OTHER REGISTRY, [place] [facility] INFLUENZA, SEASONAL, INJECTABLE 2017 141 complet ed [place] [facility] ZOSTER RECOMBINANT 1 2017 187 complet ed HISTORICA L INFORMATI ON - FROM OTHER REGISTRY, [place] [facility] ZOSTER RECOMBINANT 1 2017 187 complet ed awaiting call for 2nd dose [place] [facility] ZOSTER RECOMBINANT 2 2017 187 complet ed per pt hx [place] [facility] ZOSTER RECOMBINANT 1 2017 187 complet ed per pt hx [place] [facility] INFLUENZA, INJECTABLE, QUADRIVALENT, PRESERVATIVE FREE 2 2016 150 complet ed HISTORICA L INFORMATI ON - FROM OTHER REGISTRY, [place] [facility] INFLUENZA, SEASONAL, INJECTABLE 2016 141 complet ed [place] [facility] INFLUENZA, SEASONAL, INJECTABLE, PRESERVATIVE FREE 1 2015 140 complet ed HISTORICA L INFORMATI ON - FROM OTHER REGISTRY, [place] [facility] INFLUENZA A & B (HISTORICAL) 2015 88 complet ed [place] [facility] DTP 2013 01 complet ed [place] [facility] TDAP (HISTORICAL) 2013 115 complet ed [place] [facility] Results Combined list of recent chemistry, hematology and other laboratory results from Department of Defense and Veterans Affairs, ranging from 15 months to all on record, depending upon the facility. Order Name Results Value Reference Range Date Interpretation Specimen Comments Source 25-OH VITAMIN D 25-HYDROXYV ITAMIN D3 [MASS/VOLUM [...] 2024 08:41 AM Reporting Lab: [facility] SOLIMAN [address] [address] Performing Lab: [facility] SOLIMAN [address] [address] [facility] B12 VITAMIN COBALAMIN (VITAMIN B12) [MASS/VOLUM E] [...] 2024 08:41 AM Reporting Lab: [facility] SOLIMAN [address] [address] Performing Lab: [address] [address] [facility] CBC/PLT LEUKOCYTES [#/VOLUME] IN BLOOD BY AUTOMATED COUNT 7.3 10*3/u L 5.0 - 10.0 06/01 Specimen Type: BLOOD No comment entered. Ordering Provider: RICCO KWAN Report Released Date/Time: Jun 01, 2024 08:41 AM Reporting Lab: [address] [address] Performing Lab: [address] [address] [facility] CBC/PLT ERYTHROCYTE S [#/VOLUME] IN BLOOD BY AUTOMATED COUNT 5.13 10*6/u L 4.6 - 6.2 06/01 Specimen Type: BLOOD No comment entered. Ordering Provider: RICCO KWAN Report Released Date/Time: Jun 01, 2024 08:41 AM Reporting Lab: [place] [phone] Performing Lab: [place] [phone] [facility] CBC/PLT HEMOGLOBIN [MASS/VOLUM E] IN BLOOD 16.0 g/dL 14.0 - 18.0 06/01 Specimen Type: BLOOD No comment entered. Ordering Provider: RICCO KWAN Report Released Date/Time: Jun 01, 2024 08:41 AM Reporting Lab: [place] [phone] Performing Lab: [address] [address] [facility] CBC/PLT HEMATOCRIT [VOLUME FRACTION] OF BLOOD BY AUTOMATED COUNT 47.4 42.0 - 52.0 06/01 Specimen Type: BLOOD No comment entered. Ordering Provider: RICCO KWAN Report Released Date/Time: Jun 01, 2024 08:41 AM Reporting Lab: [address] [address] Performing Lab: [place] [phone] [facility] CBC/PLT MCV [ENTITIC VOLUME] BY AUTOMATED COUNT 92.4 fL 80.0 - 94.0 06/01 Specimen Type: BLOOD No comment entered. Ordering Provider: RICCO KWAN Report Released Date/Time: Jun 01, 2024 08:41 AM Reporting Lab: [place] [phone] Performing Lab: [place] [phone] [place] [address] CBC/PLT MCH [ENTITIC MASS] BY AUTOMATED COUNT 31.2 pg 27.0 - 31.0 06/01 H Specimen Type: BLOOD No comment entered. Ordering Provider: RICCO KWAN Report Released Date/Time: Jun 01, 2024 08:41 AM Reporting Lab: [place] [phone] Performing Lab: [place] [phone] [place] [address] CBC/PLT MCHC [MASS/VOLUM E] BY AUTOMATED COUNT 33.8 g/dL 32.0 - 36.0 06/01 Specimen Type: BLOOD No comment entered. Ordering Provider: RICCO KWAN Report Released Date/Time: Jun 01, 2024 08:41 AM Reporting Lab: [place] [phone] Performing Lab: [place] [phone] [place] [address] CBC/PLT PLATELETS [#/VOLUME] IN BLOOD 267 10*3/u L 150 - 450 06/01 Specimen Type: BLOOD No comment entered. Ordering Provider: RICCO KWAN Report Released Date/Time: Jun 01, 2024 08:41 AM Reporting Lab: [place] [phone] Performing Lab: [place] [phone] [place] [address] CBC/PLT PLATELET MEAN VOLUME [ENTITIC VOLUME] IN BLOOD 9.1 fL 9.0 - 13.1 06/01 Specimen Type: BLOOD No comment entered. Ordering Provider: RICCO KWAN Report Released Date/Time: Jun 01, 2024 08:41 AM Reporting Lab: [place] [address] Performing Lab: [address] CBC/PLT ERYTHROCYTE DISTRIBUTIO N WIDTH [ENTITIC VOLUME] BY AUTOMATED COUNT 13.4 11.0 - 16.0 06/01 Specimen Type: BLOOD No comment entered. Ordering Provider: RICCO KWAN Report Released Date/Time: Jun 01, 2024 08:41 AM Reporting Lab: [place] [address] Performing Lab: [address] CBC/PLT NUCLEATED ERYTHROCYTE S/100 ERYTHROCYTE S IN BLOOD 0.0 0.0 - 0.0 06/01 Specimen Type: BLOOD No comment entered. Ordering Provider: RICCO KWAN Report Released Date/Time: Jun 01, 2024 08:41 AM Reporting Lab: [place] [address] Performing Lab: [address] GLYCOHEMO GLOBIN HEMOGLOBIN A1C/HEMOGLO BIN.TOTAL IN BLOOD BY HPLC 5.3 4.4 - 5.6 06/01 Specimen Type: BLOOD Comment: [facility] guidelines for A1c interpretat ion: Glycemic control targets are based on Shared Decision Making between clinicians and patients. Criteria used to establish an A1c target recommendat ion can be found at https://www .[place].gov/mary lityandpati entsafety/ and include the use of [...] 9.27. Ref: https://ngs p.org/CAPda ta.asp. The in-house [employer] D-100 analyzer has a historical CV <= 2%. Contact the laboratory for further performance characteris tics of this assay. Ordering Provider: RICCO KWAN Report Released Date/Time: Jun 01, 2024 08:41 AM Reporting Lab: T[place] [address] [address] Performing Lab: [place] [address] [address] [facility] LIPID PROFILE CHOLESTEROL [MASS/VOLUM E] IN SERUM [...] 2024 08:41 AM Reporting Lab: JULIO CÉSARThuy [address] [address] Performing Lab: [address] [address] [facility] LIPID PROFILE TRIGLYCERID E [MASS/VOLUM E] IN [...] 2024 08:41 AM Reporting Lab: [facility] SOLIMAN [address] [address] Performing Lab: T[facility] SOLIMAN [address] [address] [facility] LIPID PROFILE CHOLESTEROL IN HDL [MASS/VOLUM E] [...] 2024 08:41 AM Reporting Lab: [facility] SOLIMAN [address] [address] Performing Lab: T[facility] SOLIM[facility] [address] [address] [facility] LIPID PROFILE CHOLESTEROL IN LDL [MASS/VOLUM E] [...] 2024 08:41 AM Reporting Lab: T[facility] SOLIMAN [address] [address] Performing Lab: [facility] SOLIM[facility] [address] [address] [facility] PANEL 5 CREATININE [MASS/VOLUM E] IN SERUM [...] 2024 08:41 AM Reporting Lab: [facility] SOLIMAN [address] [address] Performing Lab: TREV[facility] SOLIMAN [address] [address] [facility] PANEL 5 UREA NITROGEN [MASS/VOLUM E] IN SERUM OR PLASMA 17 mg/dL 06/01 Specimen Type: PLASMA Comment: Estimated Glomerular [...] 2024 08:41 AM Reporting Lab: TREV[facility] SOLIMAN [address] [address] Performing Lab: T[facility] SOLIMAN [address] [address] [facility] PANEL 5 GLUCOSE [MASS/VOLUM E] IN SERUM [...] 2024 08:41 AM Reporting Lab: TREV[facility] SOLIMAN [address] [address] Performing Lab: T[facility] SOLIM[facility] [address] [address] [facility] PANEL 5 SODIUM [MOLES/VOLU ME] IN SERUM [...] 2024 08:41 AM Reporting Lab: TREVIN SOLIMAN [facility] [address] [facility] [address] Performing Lab: TREVIN SOLIMAN [address] [address] [facility] PANEL 5 POTASSIUM [MOLES/VOLU ME] IN SERUM [...] 2024 08:41 AM Reporting Lab: TREV[facility] SOLIMAN [address] [address] Performing Lab: TREVIN SOLIAMN [address] [address] [facility] PANEL 5 CHLORIDE [MOLES/VOLU ME] IN SERUM [...] 2024 08:41 AM Reporting Lab: TREVIN SOLIMAN [facility] [address] [facility] [address] Performing Lab: TREVIN SOLIMAN [facility] [address] [facility] [address] [facility] PANEL 5 CARBON DIOXIDE, TOTAL [MOLES/VOLU ME] IN SERUM OR PLASMA 24 mmol/L - 06/01 Specimen Type: PLASMA Comment: Estimated Glomerular [...] 2024 08:41 AM Reporting Lab: TREVIN SOLIMAN [address] [address] Performing Lab: TREVIN SOLIMAN [address] [address] [facility] PANEL 5 CALCIUM [MASS/VOLUM E] IN SERUM [...] 2024 08:41 AM Reporting Lab: TREVIN SOLIMAN [address] [address] Performing Lab: TREVIN SOLIMAN [address] [address] [facility] PANEL 5 PROTEIN [MASS/VOLUM E] IN SERUM [...] 2024 08:41 AM Reporting Lab: TREV[facility] SOLIMAN [address] [address] Performing Lab: TREVIN SOLIMAN [address] [address] [facility] PANEL 5 ALBUMIN [MASS/VOLUM E] IN SERUM [...] 2024 08:41 AM Reporting Lab: TREVIN SOLIMAN [address] [address] Performing Lab: TREVIN SOLIMAN [address] [address] [facility] PANEL 5 BILIRUBIN.T OTAL [MASS/VOLUM E] IN [...] 2024 08:41 AM Reporting Lab: TREVIN SOLIMAN [address] [address] Performing Lab: TREVIN SOLIMAN [address] [address] [facility] PANEL 5 ASPARTATE AMINOTRANSF ERASE [ENZYMATIC ACTIVITY/VO [...] 2024 08:41 AM Reporting Lab: TREVIN SOLIMAN [address] [address] Performing Lab: TREVIN SOLIMAN [address] [address] [facility] PANEL 5 ALANINE AMINOTRANSF ERASE [ENZYMATIC ACTIVITY/VO [...] 2024 08:41 AM Reporting Lab: TREVIN SOLIMAN [facility] [address] [facility] [address] Performing Lab: TREVIN SOLIMAN [facility] [address] [facility] [address] [facility] PANEL 5 ANION GAP 3 IN SERUM [...] Jun 01, 2024 08:41 AM Reporting Lab: [facility] [address] [address] Performing Lab: JULIO CÉSARThuy [address] [address] [facility] PANEL 5 ALKALINE PHOSPHATASE [ENZYMATIC ACTIVITY/VO LUME] [...] 2024 08:41 AM Reporting Lab: TREVIN SOLIMAN [address] [address] Performing Lab: TREV[facility] SOLIMAN [address] [address] [facility] 5 GLOMERULAR FILTRATION RATE/1.73 SQ M.PREDICTED [...] Jun 01, 2024 08:41 AM Reporting Lab: [place] [phone] Performing Lab: [place] [phone] PSA PROSTATE SPECIFIC AG [MASS/VOLUM E] IN SERUM OR PLASMA 0.471 ng/mL 0 - 3.999 06/01 Specimen Type: SERUM No comment entered. Ordering Provider: RICCO KWAN Report Released Date/Time: Jun 01, 2024 08:41 AM Reporting Lab: [place] [phone] Performing Lab: [place] [phone] TSH THYROTROPIN [UNITS/VOLU ME] IN SERUM OR [...] 2024 08:41 AM Reporting Lab: [facility] SOLIMAN [address] [address] Performing Lab: TREVIN SOLIMAN [address] [address] [facility] GLYCOHEMO GLOBIN HEMOGLOBIN A1C/HEMOGLO BIN.TOTAL IN BLOOD BY HPLC 5.1 4.4 - 6.4 05/24 Specimen Type: BLOOD Comment: [facility] guidelines for A1c interpretat ion: Glycemic control targets are based on Shared Decision Making between clinicians and patients. Criteria used to establish an A1c target recommendat ion can be found at https://www .mo.gov/mary lityandpati entsafety/ and include the use of [...] 9.27. Ref: https://ngs p.org/CAPda ta.asp. The in-house [employer] D-100 analyzer has a historical CV <= 2%. Contact the laboratory for further performance characteris tics of this assay. Ordering Provider: RICCO KWAN Report Released Date/Time: May 25, 2023 11:56 AM Reporting Lab: [facility] [address] [address] Performing Lab: JULIO CÉSARThuy SOLIMAN [address] [address] [facility] LIPID PROFILE CHOLESTEROL [MASS/VOLUM E] IN SERUM [...] 2023 11:56 AM Reporting Lab: [facility] SOLIM[facility] [address] [address] Performing Lab: [facility] SOLIMAN [address] [address] [facility] LIPID PROFILE TRIGLYCERID E [MASS/VOLUM E] IN [...] 2023 11:56 AM Reporting Lab: [facility] SOLIM[facility] [address] [address] Performing Lab: [facility] SOLIM[facility] [address] [address] [facility] LIPID PROFILE CHOLESTEROL IN HDL [MASS/VOLUM E] [...] 2023 11:56 AM Reporting Lab: [facility] SOLIM[facility] [address] [address] Performing Lab: T[facility] SOLIM[facility] [address] [address] [facility] LIPID PROFILE CHOLESTEROL IN LDL [MASS/VOLUM E] [...] 2023 11:56 AM Reporting Lab: [facility] SOLIM[facility] [address] [address] Performing Lab: [facility] SOLIMAN [address] [address] [facility] Vital Signs Combined list of inpatient and outpatient Vital Signs from Department of Defense and Veterans Affairs, ranging from 12 months to all on record, depending upon the facility. Vital Sign Value Date Comments Source SYSTOLIC BLOOD PRESSURE 137 06/01/2024 08:14:32 [facility] DIAST[facility]IC BLOOD PRESSURE 79 06/01/2024 08:14:32 JULIO CÉSAR [facility] PULSE OXIMETRY 97 06/01/2024 08:14:32 L KELLY [facility] WEIGHT 164 06/01/2024 08:14:32 [place] GTHARRISON [facility] BMI 25 kg/m2 06/01/2024 08:14:32 [place] GTON [facility] PAIN 8 06/01/2024 08:14:32 [place] GTHARRISON [facility] HEIGHT 68 06/01/2024 08:14:32 [place] G[place] [facility] TEMPERATURE 98.1 06/01/2024 08:14:32 CARRIE SURI [facility] PULSE 79 06/01/2024 08:14:32 [place] GTHARRISON [facility] RESPIRATION 18 06/01/2024 08:14:32 CARRIE SURI [facility] SYSTOLIC BLOOD PRESSURE 131 05/11/2024 08:48:02 JULIO CÉSAR [facility] DIASTOLIC BLOOD PRESSURE 65 05/11/2024 08:48:02 JULIO CÉSAR [facility] WEIGHT 164.2 05/11/2024 08:48:02 [place] LEEROY [facility] BMI 24 kg/m2 05/11/2024 08:48:02 [place] GTON [facility] PAIN 8 05/11/2024 08:48:02 [place] LEEROY [facility] TEMPERATURE 97.8 05/11/2024 08:48:02 CARRIE NGKIRSTY [facility] PULSE 76 05/11/2024 08:48:02 [place] GTON [facility] Encounters Combined list of: 1) Encounters from Department of Veterans Affairs facilities going backup to the last 18 months, not all VA inpatient encounters are included; 2) Encounters from the Department of Defense facilities going backup to 280 months. Location Location Details Encounter Type Encounter Number Reason For Visit Attending Provider ADM Date DC Date Status Disposition Source [facility] Outpatient Encounter [id number] 05/09 [place] [facility] OFFICE O/P EST MOD 30 MIN [id number] Diagnos is: ICD-10- CM M47.896 Other spondyl osis, lumbar region ESTEBAN KWAN K 05/24 [place] [facility] Outpatient Encounter [id number] 05/24 [place] [facility] Outpatient Encounter [id number] 05/30 [place] TYMPANOMET RY & REFLEX THRESH [id number] Diagnos is: ICD-10- CM H93.13 Tinnitu s, david Lay,DARRELL AN M 06/17 [place] [facility] COMPRE OPH EXAM NEW PT 1/> [id number] Diagnos is: ICD-10- CM H25.13 Age-rel ated nuclear catarac t, ROYER Noel L 06/17 [place] [facility] Outpatient Encounter [id number] LEYLA PINTO A 07/25 [place] [facility] HC PRO PHONE CALL 5-10 MIN [id number] Diagnos is: ICD-10- CM Z71.9 [employer] Operator ing, 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 GARLINGHOU SE,TR L 07/25 [place] [facility] PT EVAL MOD COMPLEX 30 MIN [id number] Diagnos is: ICD-10- CM M25.562 Pain in left knee CHRISTOFER FINNEY R 07/27 [place] Outpatient Encounter [id number] 01/19 [place] [facility] En[facility] [id number] 03/10 [place] [facility] Out[facility] Encounter [id number] 05/11 [place] [facility] Outpatient Encounter [id number] 05/11 [place] OFFICE O/P EST MOD 30 MIN [id number] Diagnos is: ICD-10- CM M47.896 Other spondyl osis, lumbar region KWAN,NAN CY K 06/01 [place] [facility] Social History Combined list of available smoking, tobacco, and other social history from [employer] and [facility] Affairs facilities. Social History Type Response Date Comment [facility] e Tobacco smoking status NHIS VA-TOBACCO USE EVERY DAY OTHER TYPE 06/01/2024 [facility] History of tobacco use IA-TOBACCO NEVER USED CIGARETTES 06/01/2024 [facility] History of tobacco use IA-TOBACCO USER EVERY DAY 05/25/2023 [facility] History of tobacco use IA-TOBACCO USER EVERY DAY 06/15/2022 [facility] History of tobacco use IA-TOBACCO USER EVERY DAY 07/14/2021 [facility] History of tobacco use VA-TOBACCO USER EVERY DAY 08/13/2020 [facility] History of tobacco use IA-TOBACCO USE RUNNER OUT NO 09/06/2019 [facility] History of tobacco use IA-TOBACCO USE RUNNER OUT NO 09/12/2018 [facility] History of tobacco use V9 CURRENT TOBACCO USER 10/21/2017 [facility] History of tobacco use V9 CURRENT TOBACCO USER 10/26/2016 [facility] History of tobacco use V9 CURRENT TOBACCO USER 02/06/2015 [facility] History of tobacco use V9 QUIT TOBACCO >12 MO and <7 YRS AGO 02/19/2014 [facility]
--- NOTE | 2024-10-29 10:48 | XR_ITS ---
PROCEDURE INFORMATION: Exam: XR Chest Exam date and time: 10/29/2024 10:46 AM Age: 59 years old Clinical indication: Smoker's cough TECHNIQUE: Imaging protocol: Radiologic exam of the chest. Views: 2 views. COMPARISON: CR XR CHEST 2V 11/24/2022 10:10 AM FINDINGS: Lungs: Unremarkable. No consolidation. Pleural spaces: Unremarkable. No pleural effusion. No pneumothorax. Heart/Mediastinum: Unremarkable. No cardiomegaly. Bones/joints: Moderate spondylosis affects the thoracic spine. Postsurgical changes affects the lower thoracic and upper lumbar spine. IMPRESSION: No acute findings.
--- OUTSIDE RECORDS SUMMARY | 2024-10-29 10:50 | XMS_ITS | Encounter Summary ---
Author Organization [employer] ([place], [place], [place], [place]) Address [address] [place] [address] Care Team Providers Care Straw Hat Machine Operator Name Role Phone Unavailable Primary Care Provider Unavailabl e Encounter Details Date Type Department Care Team (Late st Contact Info) Description 05/01/2018 Transcribed Document [facility] [place] Family Medicine [address] [place] [address] ProviderCarlton MD [facility] [place], [place] [id number] Social History Tobacco Use Types Packs/Day Years Used Date Smoking Tobacco: Never Assessed Sex and Gender Information Value Date Recorded Sex Assigned at Male 09/02/2021 3:43 PM CDT Legal Sex Male 3:43 PM CDT Gender Identity Male 09/02/2021 3:43 PM CDT Sexual Orientation Not on file documented as of this encounter Miscellaneous Notes * Cerner Conversion Note - Historical ProviderMD - 05/01/2018 12:33 PM FIREWALL ADMINISTRATOR ED Discharge Vital Signs Entered On: 05/01/2018 12:33 EST Performed On: 05/01/2018 12:33 EST by German Cox AUTOMOBILE CARPETS MOLDER Discharge Vital Signs Temperature Source : Oral (Comment: recently assessed [German Cox RN - 05/01/2018 12:33 EST] ) German Cox RN - 05/01/2018 12:33 EST Electronically signed by Reynaldo Chavarria Conversion Library Serials Assistant Cerner at 06/24/2022 11:22 AM CDT documented in this encounter Plan of Treatment Not on file documented as of this encounter Visit Diagnoses Not on filedocumented in this encounter
--- OUTSIDE RECORDS SUMMARY | 2024-10-29 10:50 | XMS_ITS | Encounter Summary ---
Author Organization [employer] ([place], [place]) Address [address] [place] [address] Care Team Providers Care Scroll Machine Operator Name Role Phone Unavailable Primary Care Provider Unavailabl e Encounter Details Date Type Department Care Team (Late st Contact Info) Description 05/01/2018 Transcribed Document [facility] [facility] [place] [address] ProviderCarlton MD [facility] [place] [id number] Social History Tobacco Use Types Packs/Day Years [...] - Historical ProviderMD - 05/01/2018 12:33 PM COACH BUILDER ED Discharge Entered On: 05/01/2018 12:35 EST Performed On: 05/01/2018 12:33 EST by German Cox director of people Process Patient Disposition : Discharge Personal Belongings With Patient : Yes Patient Education Completed : Yes Teaching Evaluation : Verbalizes understanding IV Discontinued : Yes Nursing Documentation Completed : Yes German Cox RN - 05/01/2018 12:33 EST ED Discharge Discharge To : Home without planned follow-up Mode Of Departure : Private vehicle Accompanied By : Spouse Discharge Instructions Reviewed With, Opportunity For Questions Given : Patient, Spouse Prescriptions Given to Patient : Yes Number of Prescriptions Given : 3 German Cox RN - 05/01/2018 12:33 EST Electronically signed by [facility] Conversion Car Dumper Cerner at 06/24/2022 11:33 AM CDT documented in this encounter Plan of Treatment Not on file documented as of this encounter Visit Diagnoses Not on filedocumented in this encounter
--- OUTSIDE RECORDS SUMMARY | 2024-10-29 10:50 | XMS_ITS | Referral Summary ---
Author Organization [employer] ([place], [place], [place]) Address [address] [place] [address] Care Team Providers Care Insecticide Maker Name Role Phone Unavailable Primary Care Provider Unavailabl e Social History Tobacco Use Types Packs/Day Years Used Date Smoking Tobacco: Never Assessed Sex and Gender Information Value Date Recorded Sex Assigned at Male 09/02/2021 3:43 PM CDT Legal Sex Male 3:43 PM CDT Gender Identity Male 09/02/2021 3:43 PM CDT Sexual Orientation Not on file Plan of Treatment Not on file
--- OUTSIDE RECORDS SUMMARY | 2024-10-29 10:50 | XMS_ITS | Clinical Summary ---
Author Organization [employer] ([place]) Address [address] [place] [address] Care Team Providers Care Service Station Operator Name Role Phone Unavailable Primary Care [...]
--- OUTSIDE RECORDS SUMMARY | 2024-10-29 10:50 | XMS_ITS | Encounter Summary ---
Author Organization [employer] ([place]) Address [address] [place] [address] Care Team Providers Care Spot Facer Name Role Phone Unavailable Primary Care Provider Unavailabl e Encounter Details Date Type Department Care Team (Late st Contact Info) Description 05/01/2018 Transcribed Document [facility] [place] [facility] [place] [address] [facility] [place], [place] [address] Social History Tobacco Use Types Packs/Day Years Used Date Smoking Tobacco: Never Assessed Sex and Gender Information Value Date Recorded Sex Assigned at Male 09/02/2021 3:43 PM CDT Legal Sex Male 3:43 PM CDT Gender Identity Male 09/02/2021 3:43 PM CDT Sexual Orientation Not on file documented as of this encounter Miscellaneous Notes * Cerner Conversion Note - Carlton ProviderMD - 05/01/2018 10:14 AM DOG OR ANIMAL SITTER Pain Assessment Entered On: 05/01/2018 11:47 EST Performed On: 05/01/2018 11:47 EST by German Cox RN Intervention Information: acetaminophen-HYDROcodone Performed by Katheryn Ovalle RN on 05/01/2018 10:20:00 EST acetaminophen-HYDROcodone,1Tab Oral Pain Assessment Pain Assessment : Follow-up assessment Pain Scale Used : 0-10 Scale Location : Hand, right German Cox RN - 05/01/2018 11:47 EST Pain Scale Intensity : 6 German Cox RN - 05/01/2018 11:47 EST Image 4 - Images currently included in the form version of this document have not been included in the text rendition version of the form. Electronically signed by Interface, Reynaldo Conversion Event Marketing Manager Cerner at 06/24/2022 11:34 AM CDT documented in this encounter Plan of Treatment Not on file documented as of this encounter Visit Diagnoses Not on filedocumented in this encounter
--- OUTSIDE RECORDS SUMMARY | 2024-10-29 10:50 | XMS_ITS | Encounter Summary ---
Author Organization [facility] Address [address] [place] [address] Care Team Providers Care Research Biologist Name Role Phone Kristopher Fontaine MD Primary Care Provider [phone] Grace Whitney LOTUS NOTES DEVELOPER Unavailable [phone] Beena Hutson LOTUS NOTES DEVELOPER Unavailable [phone] Reason for Referral * Consultation (Routine) - Closed Specialty Diagnoses / Procedures Referred By Contac t Referred To Contact Neurosurgery Diagnoses Back abscess German Khanna MD [address] [place] [address] Phone: tel: fax: Referral ID Status Reason Start Date Expiration Date V isits Requested Visits Authorized Closed Specialty Services Required 08/19/2021 02/18/2023 1 1 Encounter Details Date Type Department Care Team (Late st Contact Info) Description 08/19/2021 Community Orders Community Practice [address] [place] [address] German Khanna MD [address] [place] [address] Back abscess (Primary Dx) Social History Tobacco Use Types Packs/Day Years Used Date Smoking Tobacco: Light Smoker Comments:Cigar smoker Alcohol Use Standard Drinks/Week Comments Yes 0 (1 standard drink = 0.6 oz pure alcohol) Alcoholic Drinks/day: Occasional alcohol use Sex and Gender Information Value Date Recorded Sex Assigned at Male 2021 10:36 AM EDT Legal Sex Male 8:52 PM EDT Gender Identity Male 2021 10:36 AM EDT Sexual Orientation Straight 2021 10 :36 AM EDT documented as of this encounter Plan of Treatment Scheduled Referrals Name Type Priority Associated Diagnoses Order Schedule Ambulatory Referral to Neurosurgery Outpatient Referral Routine Back abscess Expected: 08/19/2021 (Approximate), Expires: 02/18/2023 documented as of this encounter Visit Diagnoses Diagnosis Back abscess- Primary documented in this encounter Care Teams Research Biologist Relationship Specialty Start Date End Date Kristopher Fontaine MD [address] [facility] [address] [place] [address] PCP - General 07/19/20 Grace Whitney APRN [address] [facility] [address] [place] [address] Nurse Practitioner Neurosurgery 09/17/21 Beena Hutson APRN [address] [place] [address] Nurse Practitioner Neurosurgery 12/30/21 documented as of this encounter
--- OUTSIDE RECORDS SUMMARY | 2024-10-29 10:50 | XMS_ITS | Encounter Summary ---
Author Organization [employer] ([place], [place], [place], [place]) Address [address] [place] [address] Care Team Providers Care Kosher Sealer Name Role Phone Unavailable Primary Care Provider Unavailabl e Encounter Details Date Type Department Care Team (Late st Contact Info) Description 05/01/2018 Transcribed Document [facility] Family Medicine [facility] [place] [address] ProviderCarlton MD [address] [place] [address] Social History Tobacco Use Types Packs/Day Years Used Date Smoking Tobacco: Never Assessed Sex and Gender Information Value Date Recorded Sex Assigned at Male 09/02/2021 3:43 PM CDT Legal Sex Male 3:43 PM CDT Gender Identity Male 09/02/2021 3:43 PM CDT Sexual Orientation Not on file documented as of this encounter Miscellaneous Notes * Cerner Conversion Note - Carlton ProviderMD - 05/01/2018 12:42 PM JEWEL SETTER [place] [address] [facility] [place] [address] PERSON INFORMATION Name RANDY DEVINE Age 52 Years 1965 Sex Male Language Polish PCP Kristopher Fontaine MD Marital Status Med Service Emergency Medicine Acct# Arrival 05/01/2018 10:02:00 Visit Reason Finger laceration; SMASHED FINGER IN GATE,CUT Acuity 3 - Urgent LOS 000 02:40 Depart Date: 05/01/18 12:42 PM Address: [address] [facility] [address] Comment: PROVIDER INFORMATION Provider Role Assigned Unassigned RAÚL HERRERA, PA ED Physician 05/01/2018 10:12:37 Katheryn Ovalle, BELT LINE FEEDER Nurse 05/01/2018 10:22:00 05/01/2018 11:12:25 German Cox, BELT LINE FEEDER Nurse 05/01/2018 11:09:25 DIAGNOSIS Laceration of index finger; Open fracture of proximal phalanx of index finger PHYS DOC NOTES VITALS INFORMATION Vital Sign Triage Latest Temp Source Tympanic Oral Temp Mode Fahrenheit Fahrenheit Temp Fahrenheit 97 Deg F 97 Deg F Temp Celsius 02 Sat 95 % 97 % Respiratory Rate 18 Breaths/Min 16 Breaths/Min Peripheral Pulse Rate 100 bpm 71 bpm Apical Heart Rate Blood Pressure 155 mmHg / 82 mmHg 143 mmHg / 79 mmHg Comment: MEDICAL INFORMATION Allergy Info: No Known Allergies Medications: Prescription Display acetaminophen (Tylenol Extra Strength 500 mg oral tablet) 1 Tab, Oral, Q6H, PRN for pain, X 5 Day(s), # 24 Tab, 0 Refill(s), [facility] bacitracin topical (bacitracin 500 units/g topical ointment) 1 ApplicatorFul, Topical, Oint, QID, X 7 Day(s), # 15 Gram, 0 Refill(s), Pharmacy: [facility] cephalexin (Keflex 500 mg oral capsule) 1 Cap, Oral, Q12H, X 10 Day(s), # 20 Cap, 0 Refill(s), [facility] Comment: DISCHARGE INFORMATION Discharge Disposition: Home Discharge Location: PATIENT EDUCATION INFORMATION Instructions: Wound Check; Sutured Wound Care Follow up: With: Address: When: TERRANCE OLSON [address] [place] [address], [address] [place] [address] [facility] ([employer] Within 2 to 3 days Comments: Appointment has been made for tomorrow at 8:30 am at [facility] office Call for follow up appointment w pcp return to er if symptoms worsen, moniter at home. no eating or meds after midnight take meds as prescribed, keep splint on / dry and rest and elevate arm hope you feel better! With: Address: When: Kristopher Fontaine Within 2 to 3 days Comment: documented in this encounter Plan of Treatment Not on file documented as of this encounter Visit Diagnoses Not on filedocumented in this encounter
--- OUTSIDE RECORDS SUMMARY | 2024-10-29 10:50 | XMS_ITS | Clinical Summary ---
Author Organization [facility] Address [address] [place] [address] Care Team Providers Care Signal Wirer Name Role Phone Kristopher Fontaine MD Primary Care Provider [phone] Social History Tobacco Use Types Packs/Day Years Used Date Smoking Tobacco: Never Assessed Abuse Screen Answer Date Recorded Unsafe at Home or Work/School Not on file Feels Threatened by Someone? Not on file 11/2022 Does Anyone Keep You from Co ntacting Others or Doint Things Outside the Home? Not on file 12/14/2022 Physical Sign of Abuse Present Not on file 1 Housing Stability Answer Date Recorded Current Living Arrangements Not on file 11/2022 Potentially Unsafe Housing Conditions Not on noemi e 12/14/2022 Family and Community Support Answer Reyes e Recorded Help with Day-to-Day Activities Not on file 12/14/2022 Lonely or Isolated Not on file 12/14/2022 Employment Answer Date Recorded Do you want help finding or keeping work or a mihaela b? Not on file 12/14/2022 Disabilities Answer Date Recorded Concentrating, Remembering, or Making Decisions Difficulty Not on file 12/14/2022 Doing Errands Independently Difficulty Not on fi le 12/14/2022 Education Answer Date Recorded Help with school or training? Not on file Preferred Language Not on file 12/14/2022 Sex and Gender Information Value Date Recorded Sex Assigned at Not on file Legal Sex Male 4:37 PM EDT Gender Identity Not on file Sexual Orientation Not on file Last Filed Vital Signs Vital Sign Reading Time Taken Comments Blood Pressure - - Pulse - - Temperature - - Respiratory Rate - - Oxygen Saturation - - Inhaled Oxygen Concentration - - Weight 91.6 kg (202 lb) 11/27/2016 12:33 PM EDT Height 175.3 cm (5' 9 ) 11/27/2016 12:33 PM EDT Body Mass Index 29.83 11/27/2016 12:33 PM EDT Plan of Treatment Health Maintenance Due Date Last Done Comments ANNUAL PHYSICAL 1965 HEPATITIS C SCREENING 1965 COLOGUARD 10/08/2011 COLON CANCER SCREENING 5 YEA R SIGMOIDOSCOPY 10/08/2011 COLONOSCOPY 10/08/2011 COLORECTAL CANCER SCREENING 10/08/2011 CT COLONOGRAPHY 10/08/2011 FECAL OCCULT BLOOD TEST 10/08/2011 FIT Testing (1 year) 10/08/2011 COVID-19 Vaccine ( - 2023-2 5 season) 2023 TDAP/TD VACCINES (2 - Td or Tdap) 02/20/2024 014 INFLUENZA VACCINE 12/06/2024 11/15/2020, , 12/07/2019, Additional history exists ZOSTER VACCINE Completed 09/02/2017, 0603/2017, 06/06/2017, Additional history exists Pneumococcal Vaccine 50+ Completed 07/14/2021 Insurance Care Teams Signal Wirer Relationship Specialty Start Date End Date Kristopher Fontaine MD [address] [place] [id number] PCP - General 12/04/14
--- OUTSIDE RECORDS SUMMARY | 2024-10-29 10:50 | XMS_ITS | Encounter Summary ---
Author Organization [employer] ([place], [place], [place], [place]) Address [address] [place] [address] Care Team Providers Care Carding Utility Tender Name Role Phone Unavailable Primary Care Provider Unavailabl e Encounter Details Date Type Department Care Team (Late st Contact Info) Description 05/01/2018 Transcribed Document [facility] [place] Family Medicine [facility] [place] [address] ProviderCarlton MD [facility] [place], [place] [address] Social History Tobacco Use Types Packs/Day Years Used Date Smoking Tobacco: Never Assessed Sex and Gender Information Value Date Recorded Sex Assigned at Male 09/02/2021 3:43 PM CDT Legal Sex Male 3:43 PM CDT Gender Identity Male 09/02/2021 3:43 PM CDT Sexual Orientation Not on file documented as of this encounter Miscellaneous Notes * Cerner Conversion Note - Carlotn ProviderMD - 05/01/2018 10:02 AM [facility] ED Assessment Entered On: 05/01/2018 10:24 EST Performed On: 05/01/2018 10:22 EST by Katheryn Ovalle RN ED Quick Look Assessment Level of Consciousness : Alert, Comatose Affect/Behavior : Appropriate, Calm, Cooperative Orientation : Oriented x 4 Skin Temperature : Warm Katheryn Ovalle RN - 05/01/2018 10:22 EST ED General-Functional Assess Information Obtained From : Patient Communication Barrier : None Primary Language : Tristanian Any Spiritual/Cultural Needs or Requests : No Currently in Unsafe Situation : No Katheryn Ovalle RN - 05/01/2018 10:22 EST Social Habits Smoking Status : 10 or more cigarettes (1/2 pack or more)/day in last 30 days Smokeless Tobacco Status : Never Desires Tobacco Cessation Medication : No Reason for No Tobacco Cessation Medication : ED/procedural patient only Desires Tobacco Cessation Calc : 1 Katheryn Ovalle RN - 05/01/2018 10:22 EST Social History (As Of: 05/01/2018 10:24:24 EST) Tobacco: Smoking Status Current every day smoker. Cigars/pipes daily Smoking Frequency Within Last 30 Days. (Last Updated: 01/25/2017 12:16:39 EST by SERA FAY V. RN) Alcohol: Alcohol Use History No. Use in Last 12 Months: No. (Last Updated: 01/29/2017 09:20:09 EST by TIM PURI RN) Substance Abuse: Drug Use Hx: No. Use in Last 12 Months: No. (Last Updated: 01/29/2017 09:20:15 EST by TIM PURI RN) Integumentary Assessment Integumentary Assessment WDL : WDL with exceptions Integumentary Assessment Comment : Pt with laceration noted to R pointer finger that is approx 2 across above knuckle. Bleedig controlled. Katheryn Ovalle RN - 05/01/2018 10:22 EST documented in this encounter Plan of Treatment Not on file documented as of this encounter Visit Diagnoses Not on filedocumented in this encounter
--- OUTSIDE RECORDS SUMMARY | 2024-10-29 10:50 | XMS_ITS | Clinical Summary ---
Author Organization [facility] Address [address] [place] [address] Care Team Providers Care Gasoline Finisher Name Role Phone Kristopher Fontaine MD Primary Care Provider [phone] Grace Whitney TILE SORTER Unavailable [phone] Beena Hutson TILE SORTER Unavailable [phone] Allergies Active Allergy Reactions Criticality Noted Date Comments Hydralazine Other - please docum ent in the comment field Low 12/09/2015 reflex tachycardia Medications ascorbic acid (Vitamin C) 500 MG ER capsule 9 Active baclofen (Lioresal) 20 MG tablet Take by mouth 3 (three) times a day. 4 Active diclofenac (Voltaren) 75 MG EC tablet Take 1 tablet (75 mg) by mouth 2 (two) times a day. 2 Active omeprazole (PriLOSEC) [address] capsule Take 1 capsule (20 mg) by mouth if needed. 4 Active oxyCODONE-aceta minophen (Percocet) 7.5-325 MG tabletIndicatio ns:Pain 2 Active Multiple Vitamin (multivitamin) tablet Take 1 tablet by mouth 1 (one) time each day. Active oxyCODONE-aceta minophen (Percocet) 7.5-325 MG tablet Take 1 tablet by mouth every 4 (four) hours if needed for severe pain. 25 tablet 2 Active diclofenac (Voltaren) 0.1 % ophthalmic solution Place 1 application on the skin if needed. Active Docusate Sodium (DSS) 100 MG capsule Take 1 capsule by mouth 1 (one) time each day. 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/25/2021 Overview (11/25/2021): Added automatically from request for surgery [id number] Wound infection after surgery 10/06/2021 Overview (10/06/2021): Added automatically from request for surgery [id number] Immunizations Immunization Administration Dates Next Due DTP 02/19/2014 Hep A, Adult 11/21/2018,01/19/2018 Influenza, Unspecified 11/15/2020,12/07/2019,03/2015 Influenza, injectable, quadr ivalent, preservative free 01/16/2020,11/21/2018,12/21/2016 Influenza, seasonal, injectable 12/07/19 19,12/06/2017,12/07/2016,2010 Influenza, seasonal, injecta ble, preservative free 12/27/2015 Pneumococcal 20-luis Conj Vaccine 07/14/2021 Tdap 02/19/2014 Zoster, Recombinant 09/02/2017, 8,06/06/2017,2017 Family History Medical History Relation Name Comments Cancer Father's Brother Cancer Father's Sister Hypertension Mother Cancer Paternal Grandmother Relation Name Status Comments Father's Brother Father's Sister Mother Paternal Grandmother Social History Tobacco Use Types Packs/Day Years Used Date Smoking Tobacco: Light Smoker Cigarettes 0.3 30 Smokeless Tobacco: Never Tobacco Cessation:Ready to Q uit: Not Asked; Counseling Given: Not Answered Comments:Cigar smoker Alcohol Use Standard Drinks/Week Comments Not Currently 1 (1 standard drink = 0.6 oz pure alcohol) Alcoholic Drinks/day: Occasional alcohol use AUDIT-C Answer Date Recorded Q1: How often do you have a drink containing alc ohol? 2-4 times a month 09/26/2021 Q2: How many drinks containi ng alcohol do you have on a typical day when you are drinking? 1 or 2 09/26/2021 Q3: How often do you have si x or more drinks on one occasion? Never 09/26/2021 PHQ-2 Answer Date Recorded Patient Health Questionnaire-2 Score 0 02/03/2022 PHQ-2A Answer Date Recorded Patient Health Questionnaire-2 Score 0 02/03/2022 Sex and Gender Information Value Date Recorded Sex Assigned at Male 2021 10:36 AM EDT Legal Sex Male 8:52 PM EDT Gender Identity Male 2021 10:36 AM EDT Sexual Orientation Straight 2021 10 :36 AM EDT Last Filed Vital Signs Vital Sign Reading Time Taken Comments Blood Pressure 155/84 08/09/2023 9:27 AM EDT Pulse 68 08/09/2023 9:27 AM EDT Temperature 36.6 C (97.8 F) 08/09/2023 8:29 AM EDT Respiratory Rate 18 08/09/2023 9:27 AM EDT Oxygen Saturation 99% 08/09/2023 9:27 AM EDT Inhaled Oxygen Concentration - - Weight 74.8 kg (164 lb 14.5 oz) 08/09/2023 8:29 AM EDT Height 175.3 cm (5' 9 ) 08/09/2023 8:29 AM EDT Body Mass Index 24.35 08/09/2023 8:29 AM EDT Plan of Treatment Health Maintenance Due Date Last Done Comments [facility]-HIV Screening 1966 [facility]-Hepatitis C Screening 1966 [facility]-/Child/Adol SDOH Screenings 1966 [id number] Vaccine (#1) 10/08/1971 [facility]- SDOH Screenings 1984 [facility]-Adult SDOH Screenings 1984 [facility]-Hepatitis B Vaccines (1 of 3 - 19+ 3-dose series) 1985 CT Colonography 10/08/2011 FIT-DNA 10/08/2011 FIT 10/08/2011 FOBT 10/08/2011 Sigmoidoscopy 10/08/2011 [facility]-Depression Screening 02/03/2023 02/03/2022 [facility]-DTaP,Tdap,and Td Vaccines (3 - Td or Tdap) 02/20/2024 02/19/2014, 02/19/2014 [facility]-Medicare Annual Wellness (AWV) 05/10/2024 05/11/2023, 11/18/2021, 05/16/2019 [facility]-Influenza Vaccine (#1) 11/06/202412/29, 12/06/2021, 11/15/2020, Additional history exists Colonoscopy 07/12/2031 07/11/2021, 02/12/2016 [facility]-Colorectal Cancer Screening 07/12/2031 [facility]-Zoster Vaccines Completed 09/02/2017, 08/06/2017, 06/06/2017, Additional history exists [facility]-Hepatitis A Vaccines Aged Out 11/21/2018, 01/06 No longer eligible based on patient's age to complete this topic [facility]-Pneumococcal Vaccine: 50+ Years Completed 12/29/2022, 07/14/2021 HPV Vaccines Aged Out No longer eligi ble based on patient's age to complete this topic [facility]-HIB Vaccines Aged Out No longer e ligible based on patient's age to complete this topic [facility]-IPV Vaccines Aged Out No longer e ligible based on patient's age to complete this topic [facility]-Rotavirus Vaccines Aged Out No lo nger eligible based on patient's age to complete this topic Medical Devices Implanted Type Area Screen Printing Stencil Preparer Device Identifier Shelf Expiration Date Model / Serial / Lot Lead-02/06/20 17 Implanted:Qt y: 2 on 02/05/2017 by Jarod Munoz MD Lead Left: Spine Multi Level [employer] SC-2408- 56 / / Lead-02/06/20 17 Implanted:Qt y: 2 on 02/05/2017 by Jarod Munoz MD Lead Bilateral: Spine Multi Level [employer] SC-2408 - 56 / / [place] Thoracic Spinal Cord Stimulator-1 04/08/2016 Implanted:Qt y: 1 on 02/05/2017 by Jarod Munoz MD Spinal Cord Stimulator Left: Buttocks [employer] SC-1200 / [id number] / Insurance [facility] MEDICARE [facility] Advance Directives * Full Code (Latest Code Status on File) Date Activated Date Inactivated Comments 12/09/2021 3:48 PM Question Answer Comments Patient has decision-making capacity? Yes Care Teams Gasoline Finisher Relationship Specialty Start Date End Date Kristopher Fontaine MD [address] [place] [address] PCP - General 07/19/20 Grace Whitney APRN [address] [place] [phone] Nurse Practitioner Neurosurgery 09/17/21 Beena Hutson, TILE SORTER [address] [place] [phone] Nurse Practitioner Neurosurgery 12/30/21
--- OUTSIDE RECORDS SUMMARY | 2024-10-29 10:50 | XMS_ITS | Encounter Summary ---
Author Organization [employer] ([place], [place], [place], [place]) Address [address] [place] [address] Care Team Providers Care Physician Obstetrician Name Role Phone Unavailable Primary Care Provider Unavailabl e Encounter Details Date Type Department Care Team (Late st Contact Info) Description 05/01/2018 Transcribed Document [facility] [place] Family Medicine [facility] [place] [address] ProviderCarlton MD [facility] [place], [place] [id number] Social History Tobacco Use Types Packs/Day Years Used Date Smoking Tobacco: Never Assessed Sex and Gender Information Value Date Recorded Sex Assigned at Male 09/02/2021 3:43 PM CDT Legal Sex Male 3:43 PM CDT Gender Identity Male 09/02/2021 3:43 PM CDT Sexual Orientation Not on file documented as of this encounter Miscellaneous Notes * Cerner Conversion Note - Historical ProviderMD - 05/01/2018 11:02 AM 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
--- OUTSIDE RECORDS SUMMARY | 2024-10-29 10:50 | XMS_ITS | Encounter Summary ---
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 Phone Unavailable Primary Care Provider Unavailabl e Encounter Details Date Type Department Care Team (Late st Contact Info) Description 05/01/2018 Transcribed Document [facility] [place] Family Medicine [facility] [place] [address] ProviderCarlton MD [address] [place] [id number] Social History Tobacco Use Types Packs/Day Years Used Date Smoking Tobacco: Never Assessed Sex and Gender Information Value Date Recorded Sex Assigned at Male 09/02/2021 3:43 PM CDT Legal Sex Male 3:43 PM CDT Gender Identity Male 09/02/2021 3:43 PM CDT Sexual Orientation Not on file documented as of this encounter Miscellaneous Notes * Cerner Conversion Note - Carlton ProviderMD - 05/01/2018 10:02 AM 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 & 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 ED Triage Entered On: 05/01/2018 10:10 EST Performed On: 05/01/2018 10:09 EST by SORAIDA RAND ED Triage Across the Room Triage Date/Time : 05/01/2018 10:09 EST Chief Complaint : R index finger laceration, tetanus 2 years ago SORAIDA RAND - 05/01/2018 10:09 EST DCP GENERIC CODE Tracking Acuity : 3 - Urgent Tracking Group : [facility] ED [facility] SORAIDA RAND - 05/01/2018 10:09 EST Mode of Arrival : Ambulatory Transported to ED by : Private vehicle To Room Via : Ambulate Accompanied By : Unaccompanied ED Vital Signs : Document Height & Weight : Document ED Allergies : Document ED Reason for Visit : Document SORAIDA RAND 05/01/2018 10:09 EST Infectious Disease History Infectious Disease History : Chicken pox/Shingles Fever/Chills Last 48 Hours : No Travel To Regions with Travel Advisories : No Travel Outside [place] Within Last 30 Days : No Contact With Traveler to Advisory Region : No Tuberculosis Symptoms : None SORAIDA 05/01/2018 10:09 EST Vital Signs ED Temperature Source : Tympanic Temperature Mode : Fahrenheit Temperature, Fahrenheit : 97 Deg F Clinical Temperature, C : 36.1 Deg C Peripheral Pulse Rate : 100 bpm Respiratory Rate : 18 Breaths/Min Systolic Blood Pressure : 155 mmHg (HI) Diastolic Blood Pressure : 82 mmHg Oxygen Saturation : 95 % SORAIDA 05/01/2018 10:09 EST Allergy (As Of: 05/01/2018 10:10:38 EST) Allergies (Active) No Known Allergies Estimated Onset Date: Unspecified ; Created By: SERA FAY RN; Reaction Status: Active ; Category: Drug ; Substance: No Known Allergies ; Type: Allergy ; Updated By: SERA FAY RN; Reviewed Date: 02/05/2017 10:59 EST Diagnosis Control ED (As Of: 05/01/2018 10:10:38 EST) Problems(Active) Back pain (SNOMED CT :441134543 ) Name of Problem: Back pain ; Recorder: SERA FAY RN; Confirmation: Confirmed ; Classification: Medical ; Code: [id number] ; Contributor System: [employer] ; Last Updated: 01/25/2017 11:59 EST ; Life Cycle Date: 01/25/2017 ; Life Cycle Status: Active ; Vocabulary: SNOMED CT GERD - Gastro-esophageal reflux disease (SNOMED CT :3866333579 ) Name of Problem: GERD - Gastro-esophageal reflux disease ; Recorder: SERA FAY RN; Confirmation: Confirmed ; Classification: Medical ; Code: [id number] ; Contributor System: [employer] ; Last Updated: 01/25/2017 11:59 EST ; Life Cycle Date: 01/25/2017 ; Life Cycle Status: Active ; Vocabulary: SNOMED CT History of sleep apnea (SNOMED CT :448269792 ) Name of Problem: History of sleep apnea ; Recorder: SERA FAY RN; Confirmation: Confirmed ; Classification: Medical ; Code: [id number] ; Contributor System: [employer] ; Last Updated: 01/25/2017 12:00 EST ; Life Cycle Date: 01/25/2017 ; Life Cycle Status: Active ; Vocabulary: SNOMED CT Diagnoses(Active) Finger laceration Date: 05/01/2018 ; Diagnosis Type: Reason For Visit ; Confirmation: Complaint of ; Clinical Dx: Finger laceration ; Classification: Medical ; Clinical Service: Emergency medicine ; Code: PNED ; Probability: 0 ; Diagnosis Code: [id number] ED Height and Weight Height Source : Stated Height Entry Format : [place] Height, Feet : 5 ft(Converted to: 152 cm, 60 Inch) Height, Inches : 8 Inch(Converted to: 0 ft 8 Inch, 20.32 cm) Clinical Height : 172.72 cm Weight Source, ED : Critical estimated dosing weight Weight Entry Format : [place] Weight, Pounds : 185 lb Clinical Dosing Weight : 84.09 kg Body Surface Area (BSA) : 1.98 m2 Body Mass Index : 28.2 kg/m2 (HI) [place] Body Weight (IBW) : 67.45 kg SORAIDA RAND 05/01/2018 10:09 EST documented in this encounter Plan of Treatment Not on file documented as of this encounter Visit Diagnoses Not on filedocumented in this encounter
--- OUTSIDE RECORDS SUMMARY | 2024-10-29 10:50 | XMS_ITS | Encounter Summary ---
Author Organization [employer] ([place], [place], [place], [place]) Address [address] [place] [address] Care Team Providers Care Review Specialist Name Role Phone Unavailable Primary Care Provider Unavailabl e Encounter Details Date Type Department Care Team (Late st Contact Info) Description 05/01/2018 Transcribed Document [facility] [place] Family Medicine [facility] [place] [address] ProviderCarlton MD [facility] [place], [place] [address] Social History Tobacco Use Types Packs/Day Years Used Date Smoking Tobacco: Never Assessed Sex and Gender Information Value Date Recorded Sex Assigned at Male 09/02/2021 3:43 PM CDT Legal Sex Male 3:43 PM CDT Gender Identity Male 09/02/2021 3:43 PM CDT Sexual Orientation Not on file documented as of this encounter Miscellaneous Notes * Cerner Conversion Note - Historical ProviderMD - 05/01/2018 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
--- OUTSIDE RECORDS SUMMARY | 2024-10-29 10:50 | XMS_ITS | Encounter Summary ---
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 [address] [place] [address] Patient Information Name: RANDY DEVINE Age: 52 Years Date of : 1965 Arrival Time: 05/01/2018 10:02:00 Diagnosis Laceration of index finger; Open fracture of proximal phalanx of index finger Primary Care Physician: Kristopher Fontaine MD Provider Information Primary Provider: RAÚL HERRERA Secondary Provider: RANDY DEVINE has been given the following list of patient education materials, prescriptions and follow-up instructions: Follow-up Instructions: With: Address: When: TERRANCE OLSON [address] [place], [place] [id number] [facility] (1) Within 2 to 3 days Comments: Appointment has been made for tomorrow at 8:[address] [facility] office Call for follow up appointment w pcp return to er if symptoms worsen, moniter at home. no eating or meds after midnight take meds as prescribed, keep splint on / dry and rest and elevate arm hope you feel better! With: Address: When: Kristopher Fontaine Within 2 to 3 days Patient Education Materials: Wound Check If you have a wound, it may take some time to heal. Eventually, a scar will form. The scar will also fade with time. It is important to take care of your wound while it is healing. This helps to protect your wound from infection. How should I take care of my wound at home? Some wounds are allowed to close on their own or are repaired at a later date. There are many different ways to close and cover a wound, including stitches (sutures), skin glue, and adhesive strips. Follow your health care provider's instructions about: ? Wound care. ? Bandage (dressing) changes and removal. ? Wound closure removal. ??? Take medicines only as directed by your health care provider. ??? Keep all follow-up visits as directed by your health care provider. This is important. ??? Do nottake baths, swim, or use a hot tub until your health care provider approves. You may shower as directed by your health care provider. ??? Keep your wound clean and dry. What affects scar formation? Scars affect each person differently. How your body scars depends on: ??? The location and size of your wound. ??? Traits that you inherited from your parents (genetic predisposition). ??? How you take care of your wound. Irritation and inflammation increase the amount of scar formation. ??? Sun exposure. This can darken a scar. When should I call or see my health care provider? Call or see your health care provider if: ??? You have redness, swelling, or pain at your wound site. ??? You have fluid, blood, or pus coming from your wound. ??? You have muscle aches, chills, or a general ill feeling. ??? You notice a bad smell coming from the wound. ??? Your wound separates after the sutures, traci, or skin adhesive strips have been removed. ??? You have persistent nausea or vomiting. ??? You have a fever. ??? You are dizzy. When should I call 911 or go to the emergency room? Call 911 or go to the emergency room if: ??? You faint. ??? You have difficulty breathing. This information is not intended to replace advice given to you by your health care provider. Make sure you discuss any questions you have with your health care provider. Document Released: 11/28/2004 Document Revised: 08/05/2016 Document Reviewed: 12/04/2014 [employer] Patient Education ? 2017 [employer] Sutured Wound Care Sutures are stitches that can be used to close wounds. Taking care of your wound properly can help to prevent pain and infection. It can also help your wound to heal more quickly. How is this treated? Wound Care??? Keep the wound clean and dry. ??? If you were given a bandage (dressing), you should change it at least once per day or as directed by your health care provider. You should also change it if it becomes wet or dirty. ??? Keep the wound completely dry for the first 24 hours or as directed by your health care provider. After that time, you may shower or bathe. However, make sure that the wound is not soaked in water until the sutures have been removed. ??? Clean the wound one time each day or as directed by your health care provider. ? Wash the wound with soap and water. ? Rinse the wound with water to remove all soap. ? Pat the wound dry with a clean towel. Do not rub the wound. ??? After?cleaning the wound, apply a thin layer of antibiotic?ointment as directed by your health care provider. This will help to prevent infection and keep the dressing from sticking to the wound. ??? Have the sutures removed as directed by your health care provider. General Instructions??? Take or apply medicines only as directed by your health care provider. ??? To help prevent scarring, make sure to cover your wound with sunscreen whenever you are outside after the sutures are removed and the wound is healed. Make sure to wear a sunscreen of at least 30 SPF. ??? If you were prescribed an antibiotic medicine or ointment, finish all of it even if you start to feel better. ??? Do notscratch or pick at the wound. ??? Keep all follow-up visits as directed by your health care provider. This is important. ??? Check your wound every day for signs of infection. Watch for: ? Redness, swelling, or pain. ? Fluid, blood, or pus. ??? Raise (elevate) the injured area above the level of your heart while you are sitting or lying down, if possible. ??? Avoid stretching your wound. ??? Drink enough fluids to keep your urine clear or pale yellow. Contact a health care provider if: ??? You received a tetanus shot and you have swelling, severe pain, redness, or bleeding at the injection site. ??? You have a fever. ??? A wound that was closed breaks open. ??? You notice a bad smell coming from the wound. ??? You notice something coming out of the wound, such as wood or glass. ??? Your pain is not controlled with medicine. ??? You have increased redness, swelling, or pain at the site of your wound. ??? You have fluid, blood, or pus coming from your wound. ??? You notice a change in the color of your skin near your wound. ??? You need to change the dressing frequently due to fluid, blood, or pus draining from the wound. ??? You develop a new rash. ??? You develop numbness around the wound. Get help right away if: ??? You develop severe swelling around the injury site. ??? Your pain suddenly increases and is severe. ??? You develop painful lumps near the wound or on skin that is anywhere on your body. ??? You have a red streak going away from your wound. ??? The wound is on your hand or foot and you cannot properly move a finger or toe. ??? The wound is on your hand or foot and you notice that your fingers or toes look pale or bluish. This information is not intended to replace advice given to you by your health care provider. Make sure you discuss any questions you have with your health care provider. Document Released: 04/01/2005 Document Revised: 07/30/2016 Document Reviewed: 10/04/2013 [employer] Patient Education ? 2017 [employer] Allergies: No Known Allergies Medication Information: Prescription Display acetaminophen (Tylenol Extra Strength 500 mg oral tablet) 1 Tab, Oral, Q6H, PRN for pain, X 5 Day(s), # 24 Tab, 0 Refill(s), Pharmacy: [facility]4 bacitracin topical (bacitracin 500 units/g topical ointment) 1 ApplicatorFul, Topical, Oint, QID, X 7 Day(s), # 15 Gram, 0 Refill(s), [facility] cephalexin (Keflex 500 mg oral capsule) 1 Cap, Oral, Q12H, X 10 Day(s), # 20 Cap, 0 Refill(s), [facility] Laboratory or Other Results This Visit (last charted value for your 05/01/2018 visit) Diagnostic Radiology 05/01/18 10:39:38 CR Finger 2nd Digit RT: CR Finger 2nd Digit RT Medication Comment: Procedures: Laboratory Orders No laboratory orders were placed. Radiology Orders Name Status CR Finger 2nd Digit RT Completed Cardiology Orders No cardiology orders were placed. This statement is to verify that RANDY DEVINE was seen at [facility] Emergency Department on ,05/01/2018 12:42:49. This is not a work excuse, if a work excuse was needed it will be in addition to this statement as a separate form. IMPORTANT: The examination and treatment you have received in the Emergency Department has been done to provide an appropriate evaluation and stabilizing treatment on an emergency basis only. Given the limited resources, it is not meant to be a substitute for complete medical care. The follow-up doctor you named will receive a copy of your records and all test reports. IT IS IMPORTANT THAT YOU SCHEDULE A FOLLOW-UP APPOINTMENT AND ARE RE-EVALUATED. You should report any new complaints, symptoms, or remaining problems at that time. IT IS IMPOSSIBLE FOR THE EMERGENCY DEPARTMENT TO RECOGNIZE AND TREAT ALL ELEMENTS OF INJURY OR ILLNESS IN A SINGLE VISIT. If you have been referred to a specialist physician, it means that we believe you may have a condition that requires the expertise of a specialist. KEEP IN MIND THAT THE SPECIALIST HAS HIS/HER OWN OFFICE POLICIES WHICH MAY REQUIRE PROPER INSURANCE OR PAYMENT UP FRONT BEFORE THE SPECIALIST WILL SEE YOU. It is your responsibility to call the specialist physician to make an appointment. We do not have the ability to identify specialists/physicians that work with specific insurance companies. Please be advised that all financial charges or billing practices are determined by that practice, not the hospital. If your insurance company requires that you see a specialist from their approved list, it is your responsibility to contact your insurance company to make those arrangements. It is also your responsibility to follow any other requirements of your insurance company necessary to obtain coverage for claims submitted. If you had special tests, such as EKG???s or X-rays, the interpretation of your tests given to you by the Emergency Dept. Physician is a preliminary report. Some fractures and illnesses fail to show up on preliminary tests. We will review them again within 24-48 hours. We will call you if there are any new suggestions. If your symptoms continue notify your physician. After you leave, you should follow the instructions below. In all events, you may obtain a copy of your Emergency Department visit from Medical Records. Please call to be directed to this department. We will bill your insurance; however, you are responsible today for any co-pay amounts. You will receive a separate bill for any services you may have received including: emergency, radiology, or pathology physicians. Please be sure we have an accurate contact phone number and address, should we need to call you for any reason. CIGARETTE SMOKING: The facts are clear; cigarette smoking will shorten your life. Smoking can cause many illnesses along the way. As a healthcare provider, E recommends that you stop smoking. Assistance with quitting is available by contacting 6-035-MDJN-NOW. This is a free resource providing counseling, support, and referral. Or you may contact your personal physician. As part of your treatment plan, your physician may have prescribed a limited course of a controlled substance. This medication may be given to help people with moderate or severe pain or for other medical conditions, but there are risks involved with treatment. Common side effects may include nausea, constipation, drowsiness, sweating, itching, dry mouth, and rash. More serious side effects may include cognitive and motor impairment, like problems with thinking, concentrating, alertness, and movement (e.g. slowed reflexes), and driving and operating heavy machinery can be dangerous. It is important for you to talk to your physician if you have these side effects or questions. These controlled substances can produce physical dependence and be habit-forming if taken for an extended period of time, which means that the body has gotten used to them and may experience withdrawal symptoms if they are abruptly stopped. Withdrawal symptoms can include runny nose, sweating, goose bumps, diarrhea, abdominal cramping, rapid heartbeat, difficulty sleeping, and nervousness. The home medications listed are only as accurate as the information you provided. Please continue taking all of your medications prescribed by your Primary Care Provider unless specifically told to change or discontinue the medication. Please direct any questions regarding your home medications to your Primary Care Provider. YOU ARE THE MOST IMPORTANT FACTOR IN YOUR RECOVERY. ?? Follow your instructions carefully ?? Take your medicines as prescribed ?? Most important, see a provider as discussed. If you do not have a provider, we can provide a list of clinics Confidential This message and accompanying documents are covered by Electronic Communications Privacy Act 18 U.S.C. ???Sections 4689-2543,?? and contain information intended for the specified individual(s) only. This information is confidential. If you are not the intended recipient or an agent responsible for delivering it to the intended recipient, you are hereby notified that you have received the document in error and that any review, dissemination, copying, or the taking of any action based on the contents of this information is strictly prohibited. If you have received this communication in error, please notify us immediately by email, and delete the original message. 4 WAYS TO GET AHEAD OF SEPSIS SEPSIS is a MEDICAL EMERGENCY. Time matters! Infections put you and your family at risk for a life-threatening condition called sepsis. Sepsis is the body???s extreme response to an infection. It is life-threatening, and without timely treatment, sepsis can rapidly lead to tissue damage, organ failure, and . Sepsis happens when an infection you already have???in your skin, lungs, urinary tract or somewhere else???triggers a chain reaction throughout your body. 1 PREVENT INFECTIONS Take good care of chronic conditions. Talk to your doctor about getting the recommended vaccines. 2 PRACTICE GOOD HYGIENE Wash your hands frequently. Keep cuts or open sores clean and covered until they are healed. 3 KNOW THE SYMPTOMS Confusion or disorientation Shortness of breath High heart rate Fever, shivering, or feeling very cold Extreme pain or discomfort Clammy or sweaty skin 4 ACT FAST Get medical care IMMEDIATELY if you suspect sepsis or if you have an infection that???s not getting better or is getting worse. To learn more about sepsis and how to prevent infections, visit www.cdc.gov/sepsis. STROKE is an EMERGENCY Every Minute Counts ACT F.A.S.T! FACE ?? Facial droop ?? Uneven smile ARM ?? Arm numbness ?? Arm weakness SPEECH ?? Slurred speech ?? Difficulty speaking or understanding TIME ?? Call 911 and get to the hospital immediately Have the ambulance go to the nearest stroke center. STROKE Risk Factors High blood pressure High cholesterol Heart Disease Diabetes Smoking Heavy alcohol use Physical inactivity and obesity Atrial Fibrillation (irregular heartbeat) Family history of stroke Acknowledgment I hereby acknowledge receipt of these instructions and information above. I understand that I have received Emergency Treatment only which is not a substitute for complete medical care and acknowledge that all of my medical problems may not be known, identified, or treated prior to my release. I UNDERSTAND THE NEED TO ARRANGE FOLLOW-UP CARE WITH THE PHYSICIAN INDICATED. I UNDERSTAND THAT I SHOULD CONTACT MY PHYSICIAN IMMEDIATELY OR RETURN TO THE EMERGENCY DEPARTMENT IF MY CONDITION WORSENS, FAILS TO IMPROVE, OR NEW SYMPTOMS APPEAR. Vital Signs B/P PULSE RESP. RATE TEMPERATURE PULSE OX Signature of Emergency Provider Date / Time Signature of Emergency Nurse Date / Time Reminder: Be sure to sign up for the My [facility] Emergency Department patient portal, which gives you 28/09 access to your medical information ??? including these discharge instructions ??? using your computer, smartphone, or tablet. Just go to [employer] to get started. Questions? Call . Acknowledgment I hereby acknowledge receipt of these instructions and information above. I understand that I have received Emergency Treatment only which is not a substitute for complete medical care and acknowledge that all of my medical problems may not be known, identified, or treated prior to my release. I UNDERSTAND THE NEED TO ARRANGE FOLLOW-UP CARE WITH THE PHYSICIAN INDICATED. I UNDERSTAND THAT I SHOULD CONTACT MY PHYSICIAN IMMEDIATELY OR RETURN TO THE EMERGENCY DEPARTMENT IF MY CONDITION WORSENS, FAILS TO IMPROVE, OR NEW SYMPTOMS APPEAR. Signature of Patient / Responsible Person Date / Time Please provide a telephone number where you can be reached. The best time to call is between: It is permissible to leave a message if no answer: Yes____ No____ Nurse Providing Instructions: Emergency Physician: Electronically signed by Reynaldo Chavarria [employer] Dulce Marianer at 06/24/2022 11:25 AM CDT documented in this encounter Plan of Treatment Not on file documented as of this encounter Visit Diagnoses Not on filedocumented in this encounter
== END 2024-10-29 23:59 | disposition home or self-care (01) ==
LOC: RAD 10:48
PROVIDERS: PCP Family Medicine; Visit Provider Student in an Organized Health Care Education/Training Program
DX: R05.9 Cough, unspecified (principal)
CPT/HCPCS: 71046